=== PATIENT | female | born 1995 | race Caucasian/White ===

== ENCOUNTER 2020-08-06 15:37 | Emergency (ER) | payer OTHER, SELFPAY ==
[2020-08-06 16:14] VITALS: BP 135/69; PULSE 79; RESP 18; TEMP 36.9; O2SAT 98; BMI 42.5
--- NOTE | 2020-08-06 16:19 | XR_ITS ---
EXAMINATION: XR KNEE, LEFT CLINICAL INFORMATION: Fall, pain. COMPARISON: None TECHNIQUE: Four views of the left knee. FINDINGS: Bones and soft tissues are normal. No fracture or joint effusion. Alignment is anatomic. Joint spaces are well maintained. No abnormal soft tissue calcification. XR/XR knee LT 3V IMPRESSION: Unremarkable left knee exam.
--- NOTE | 2020-08-06 16:20 | ED_ITS ---
HPI - Extremity Injury (Lower) General Chief Complaint: Extremity Injury, Lower Stated Complaint: knee pain Time Seen by Provider: 08/06/20 16:12 Source: patient Mode of arrival: wheelchair Limitations: no limitations History of Present Illness HPI Narrative: Patient comes emergency room complaining of left-sided knee pain. Patient states yesterday she was playing with her daughter, she slipped with her right knee, landed hard on her left knee. Patient states she was able to initially walk, but then the pain throughout the day increased. Today patient has not been able to bear significant weight due to knee pain. Patient states she has history of torn ligaments in that same knee, which she require physical therapy. MD complaint: knee injury Related Data Previous Rx's Medication Instructions Recorded acetaminophen [Tylenol 8 Hour] 650 mg PO Q8H PRN #14 tab 08/06/20 Allergies Allergy/AdvReac Type Severity Reaction Status Date / Time ibuprofen [From MOTRIN] Allergy Mild HIVES Verified 08/06/20 16:17 Ibuprofen (800 MG) Allergy Unknown RASH Uncoded 05/09/12 00:00 Review of Systems Review of Systems: Constitutional : No Weight loss, No Fever, No Chills, No Night Sweats, No Fatigue, No Malaise ENT/Mouth : No Hearing loss, No Ear Pain, No Nasal Congestion, No Sinus Pain, No Hoarseness, No sore throat, No Rhinorrhea, No Swallowing Difficulty Eyes: No Eye Pain, No Swelling, No Redness, No Foreign Body, No Discharge, No Vision Changes Cardiovascular : No Chest Pain, No SOB, No Dyspnea on Exertion, No Orthopnea, No Edema, No Palpitations Respiratory : No Cough, No Sputum, No Wheezing, No Smoke Exposure, No Dyspnea Gastrointestinal : No Nausea, No Vomiting, No Diarrhea, No Constipation, No abdominal Pain, No Hematochezia, No Melena Genitourinary : no irregular bleeding, No Dysuria, No Urinary Frequency, No Hematuria, No Urinary Incontinence, No Urgency, No Flank Pain, No Urinary Flow Changes, No Hesitancy Musculoskeletal : Complaining of left-sided knee pain, No Myalgias, No Joint Swelling Skin : No Skin Lesions, No rash Neuro : No Weakness, No Numbness, No Paresthesias, No Loss of Consciousness, No Dizziness, No Headache Psych : No Anxiety/Panic, No Depression, No SI/HI/AH/VH, No Social Issues, Heme/Lymph: No Bruising, No Bleeding,No Lymphadenopathy Endocrine : No Polyuria, No Polydipsia, No Temperature Intolerance [facility] Past Medical History Medical History No known health problems Social History Social History Advance Directives: No Advance Directives Information Provided: No Physical Exam Vital Signs: Vital Signs: Last Vital Signs Temp 98.5 F 08/06/20 16:14 Pulse 79 08/06/20 16:14 Resp 18 08/06/20 16:14 BP 135/69 08/06/20 16:14 Pulse Ox 98 08/06/20 16:14 Body Mass Index 42.5 Appearance: Alert. Oriented X3. No acute distress. Eyes: Pupils equal, round and reactive to light. ENT: Pharynx normal. Neck: Normal inspection. Neck supple. No lymph nodes noted. No crepitus CVS: Normal heart rate and rhythm. Pulses normal. Normal S1 and S2 Respiratory: No respiratory distress. Breath sounds normal. No Wheezing. No rales Abdomen: Soft and nontender. No rigidity. No distention. good BS x4 Skin: Skin warm and dry. Small script to left knee Extremities: No lower extremity edema. Patient unable to bear weight with the left extremity. Knee is symmetrical when compared to the right knee, no knee effusion. Patient complaining of pain to palpation over the patella, no posterior knee pain, complaining of pain with positive drawer test, but no laxity of joint appreciated Neuro: Oriented X 3. No motor deficit. No sensory deficit. Moving all extermities. No slurred speech. Course Course Course Narrative: Patient was able to walk limping from her room to the x-rays suite. I discussed the x-rays with the patient, no fracture. I discussed with the patient that she may need an MRI if the pain does not improve, it is possible that she may have re-injured ligament, may need physical therapy as well. Patient provided with crutches. Patient has been likely secondary to a contusion versus sprain versus ligament/meniscus injury MDM - Extremity Injury (Lower) Imaging Data Knee x-ray: Radiologist's impression: FINDINGS: Bones and soft tissues are normal. No fracture or joint effusion. Alignment is anatomic. Joint spaces are well maintained. No abnormal soft tissue calcification. XR/XR knee LT 3V IMPRESSION: Unremarkable left knee exam. Discharge Plan Discharge Clinical Impression: Knee sprain Patient Disposition: Home, Self-Care Instructions: Knee Sprain (ED) Additional Instructions: Apply ice to your knee for 15 minutes every 2 hours for the 1st 24 hours. Make sure that the ice is not in direct contact with her skin. Please follow-up with your primary care physician, you may need an MRI and or physical therapy. Prescriptions: New acetaminophen [Tylenol 8 Hour] 650 mg tablet extended release 650 mg PO Q8H PRN (Reason: pain) Qty: 14 RF: 0
[2020-08-06] MEDS: Acetaminophen 325 MG TABLET 650 MG PO (16:23)
== END 2020-08-06 17:40 | disposition home or self-care (01) ==
PROVIDERS: Emergency Provider Emergency Medicine
DX: S83.92XA Sprain of unspecified site of left knee, initial encounter (principal); W01.0XXA Fall on same level from slipping, tripping and stumbling without subsequent striking against object, initial encounter; Y93.89 Activity, other specified; Y92.019 Unspecified place in single-family (private) house as the place of occurrence of the external cause; Y99.9 Unspecified external cause status
CPT/HCPCS: 73562; 99282; 99283

== ENCOUNTER 2021-03-20 01:26 | Emergency (ER) | payer MEDICAID, SELFPAY ==
--- NOTE | ~2021-03-20 | CT_ITS ---
EXAMINATION: CT ABDOMEN AND PELVIS WITHOUT CONTRAST CLINICAL INFORMATION: Left flank pain and constipation. COMPARISON: None TECHNIQUE: Multidetector volumetric imaging was performed from the superior aspect of the liver through the pubic symphysis. Sagittal and coronal reformatted images were obtained on the technologist's workstation. This CT examination was performed using dose optimization techniques as appropriate, variously including the following: *Automated exposure control *Adjustment of mA and/or kV according to patient size (this includes techniques or standardized protocols for targeted exams where dose is matched to indication/reason for exam; i.e. extremities or head) *Use of iterative reconstruction technique DLP: 916 mGy-cm FINDINGS: LUNG BASES: The visualized lung bases are unremarkable. LIVER, GALLBLADDER, AND BILIARY TREE: Liver is normal in size, contour and morphology. There is diffuse hepatic steatosis. No focal liver lesions. No intra or extrahepatic biliary dilatation. Gallbladder unremarkable. PANCREAS: Unremarkable. SPLEEN: Unremarkable. ADRENAL GLANDS: Unremarkable. KIDNEYS AND URETERS: The kidneys are normal in size, shape, and attenuation. No hydronephrosis, hydroureter, or calculi seen. No perinephric stranding. BLADDER: Unremarkable. GASTROINTESTINAL TRACT: There is trace fat stranding along the antimesenteric aspect of the descending colon surrounding a lobular fat most compatible with epiploic appendagitis. Gastrointestinal tract otherwise unremarkable. Normal appendix. ABDOMINAL WALL: No significant hernia is appreciated. LYMPH NODES: Normal. VASCULAR: Unremarkable. PELVIC VISCERA: Uterus and adnexa unremarkable. OSSEOUS STRUCTURES: Unremarkable. CT/CT abdomen pelvis wo con IMPRESSION: Findings compatible with epiploic appendagitis involving the distal descending colon. No urinary calculi or hydronephrosis.
[2021-03-20 01:52] VITALS: BP 145/85; PULSE 74; RESP 18; TEMP 36.6; O2SAT 98; BMI 43.9
--- NOTE | 2021-03-20 02:48 | ED_ITS ---
HPI - Abdominal Pain General Chief Complaint: Abdominal Pain Stated Complaint: flank pain Time Seen by Provider: 03/20/21 02:47 Source: patient Mode of arrival: ambulatory Limitations: no limitations History of Present Illness MD elicited complaint: abdominal pain Pertinent past history: none Onset (ago): week(s) (3) Pain Consistency: constant Location: LLQ and L flank Severity: moderate Quality: cramping Radiation: none Migration to: no migration Exacerbating factors: movement Relieving factors: nothing Associated symptoms: nausea and constipation (for 2 weeks + flatus) Treatments prior to arrival: other (miralax, suppository) Related Data Previous Rx's Medication Instructions Recorded acetaminophen 650 mg 650 mg PO Q8H PRN #14 tab 08/06/20 tablet,extended release (Tylenol 8 Hour) docusate sodium 100 mg capsule 100 mg PO BID PRN #30 cap 03/20/21 (Colace) hydrocodone 5 mg-acetaminophen 325 1 tab PO Q6H PRN #12 tab 03/20/21 mg tablet magnesium citrate 150 ml PO DAILY PRN #296 ml 03/20/21 ondansetron 4 mg disintegrating 4 mg PO Q8H PRN #20 tab 03/20/21 tablet sennosides 8.6 mg capsule (senna) 8.6 mg PO BEDTIME PRN #30 cap 03/20/21 Allergies Allergy/AdvReac Type Severity Reaction Status Date / Time ibuprofen [From MOTRIN] Allergy Mild HIVES Verified 08/06/20 16:17 Ibuprofen (800 MG) Allergy Unknown RASH Uncoded 05/09/12 00:00 Review of Systems Review of Systems Constitutional : No Weight loss, No Fever, No Chills ENT/Mouth : No sore throat, No Rhinorrhea Eyes: No Swelling, No Redness Cardiovascular : No Chest Pain, No SOB, NoEdema Respiratory : No Cough, No Sputum, No Wheezing Gastrointestinal : Positive Nausea, no Vomiting, no Diarrhea, positive abdominal Pain, No Hematochezia, No Melena, pos constipation Genitourinary : No Dysuria, No Urinary Frequency, No Hematuria, No Urgency Musculoskeletal : No joint pain, No Myalgias, No Joint Swelling Skin : No Skin Lesions, No rash Neuro : No Weakness, No Numbness, No Dizziness, No Headache Psych : No Anxiety/Panic, No Depression Heme/Lymph: No Bruising, No Lymphadenopathy Endocrine : No Polyuria, No Polydipsia All other systems reviewed and are negative. Physical Exam Vital Signs: Vital Signs: Last Vital Signs Temp 97.8 F 03/20/21 01:52 Pulse 74 03/20/21 01:52 Resp 18 03/20/21 01:52 BP 145/85 H 03/20/21 01:52 Pulse Ox 98 03/20/21 01:52 Body Mass Index 43.9 Appearance: Alert. Oriented X3. No acute distress. Eyes: Pupils equal, round and reactive to light. ENT: Pharynx normal. Neck: Normal inspection. Neck supple. CVS: Normal heart rate and rhythm. Pulses normal. Respiratory: No respiratory distress. Breath sounds normal. Abdomen: Soft and mild ttp in LLQ and L flank pain, no rebound or guarding Skin: Skin warm and dry. Normal skin color. Normal skin turgor. Extremities: No lower extremity edema. No calf ttp Neuro: Oriented X 3. No motor deficit. No sensory deficit. Course Course Course Narrative: self limited epipolic appendagitis - stable for DC MDM - Abdominal Pain MDM Narrative Medical decision making narrative: 25 yo female with L flank pain and LLQ pain - also constipation x 3 weeks no prior stones or diverticulitis at this time will need labs, CT scan for renal colic/diverticulitis, dispo per results and findings. Lab Data Result diagrams: 03/20/21 03:11 03/20/21 03:11 Labs: Lab Results 03/20/21 03/20/21 03/20/21 Range/Units 02:52 02:52 03:11 WBC 9.5 (4.8-10.8) X10*3/uL RBC 4.26 (4.20-5.50) X10*6/uL Hgb 13.3 (12.0-16.0) g/dl Hct 40.0 (37-47) % MCV 93.9 (80-98) fL MCH 31.2 (27.0-33.0) pg MCHC 33.3 (31.0-35.0) g/dl RDW 13.0 (11.0-16.0) % Plt Count 293 (160-400) X10*3/uL MPV 10.4 (9.4-12.3) fL Immature Gran % (Auto) 0.2 (0.0-0.4) % Neut % (Auto) 57.0 (45-73) % Lymph % (Auto) 34.2 (20-40) % [place] % (Auto) 7.5 (2-11) % Eos % (Auto) 0.9 (0-4) % Baso % (Auto) 0.2 (0-2) % Lymph # (Auto) 3.2 (1.2-4.9) X10*3/uL [place] # (Auto) 0.7 (0.1-1.2) X10*3/uL Eos # (Auto) 0.1 (0.0-0.4) X10*3/uL Baso # (Auto) 0.0 (0.0-0.2) X10*3/uL Abs Immat Gran (auto) 0.02 (0.00-0.03) X10*3/uL Absolute Neuts (auto) 5.4 (2.0-8.3) X10*3/uL Absolute Nucleated RBC 0.000 (0.0-0.012) X10*3/uL Nucleated RBC % (auto) 0.0 (0.0-0.2) /100WBC Sodium Potassium Chloride Carbon Dioxide Anion Gap BUN Creatinine Estim Creat Clear Calc Estimated GFR Random Glucose Calcium Urine Color YELLOW Urine Appearance CLEAR Urine pH 6.0 (5.0-8.0) Ur Specific [place] >= 1.030 H (1.005-1.025) Urine Protein NEG (NEG-TRACE) MG/DL Urine Glucose (UA) NEG (NEG) MG/DL Urine Ketones NEG (NEG) MG/DL Urine Blood NEG (NEG) Urine Nitrite NEG (NEG) Ur Leukocyte Esterase NEG (NEG) Urine Test NEGATIVE (NEGATIVE) 03/20/21 Range/Units 03:11 WBC (4.8-10.8) X10*3/uL RBC (4.20-5.50) X10*6/uL Hgb (12.0-16.0) g/dl Hct (37-47) % MCV (80-98) fL MCH (27.0-33.0) pg MCHC (31.0-35.0) g/dl RDW (11.0-16.0) % Plt Count (160-400) X10*3/uL MPV (9.4-12.3) fL Immature Gran % (Auto) (0.0-0.4) % Neut % (Auto) (45-73) % Lymph % (Auto) (20-40) % [place] % (Auto) (2-11) % Eos % (Auto) (0-4) % Baso % (Auto) (0-2) % Lymph # (Auto) (1.2-4.9) X10*3/uL [place] # (Auto) (0.1-1.2) X10*3/uL Eos # (Auto) (0.0-0.4) X10*3/uL Baso # (Auto) (0.0-0.2) X10*3/uL Abs Immat Gran (auto) (0.00-0.03) X10*3/uL Absolute Neuts (auto) (2.0-8.3) X10*3/uL Absolute Nucleated RBC (0.0-0.012) X10*3/uL Nucleated RBC % (auto) (0.0-0.2) /100WBC Sodium Cancelled Potassium Cancelled Chloride Cancelled Carbon Dioxide Cancelled Anion Gap Cancelled BUN Cancelled Creatinine Cancelled Estim Creat Clear Calc Cancelled Estimated GFR Cancelled Random Glucose Cancelled Calcium Cancelled Urine Color Urine Appearance Urine pH (5.0-8.0) Ur Specific [place] (1.005-1.025) Urine Protein (NEG-TRACE) MG/DL Urine Glucose (UA) (NEG) MG/DL Urine Ketones (NEG) MG/DL Urine Blood (NEG) Urine Nitrite (NEG) Ur Leukocyte Esterase (NEG) Urine Test (NEGATIVE) Discharge Plan Discharge Clinical Impression: Epiploic appendagitis Patient Disposition: Home, Self-Care Instructions: Abdominal Pain (ED) Additional Instructions: return to ED for any worsening symptoms or concerns Prescriptions: New hydrocodone-acetaminophen 5-325 mg tablet 1 tab PO Q6H PRN (Reason: pain) Qty: 12 RF: 0 docusate sodium [Colace] 100 mg capsule 100 mg PO BID PRN (Reason: constipation) Qty: 30 RF: 0 ondansetron 4 mg tablet,disintegrating 4 mg PO Q8H PRN (Reason: nausea and vomiting) Qty: 20 RF: 0 senna 8.6 mg capsule 8.6 mg PO BEDTIME PRN (Reason: constipation) Qty: 30 RF: 0 magnesium citrate Solution 150 ml PO DAILY PRN (Reason: constipation) Qty: 296 RF: 0 No Action acetaminophen [Tylenol 8 Hour] 650 mg tablet extended release 650 mg PO Q8H PRN (Reason: pain) Qty: 14 RF: 0 Referrals: Physician,None [Primary Care Provider] - 2 days (if not better) Stand Alone Forms: Work/School Release [facility] Past Medical History Medical History No known health problems Social History Social History Advance Directives: No Patient : No
--- NOTE | 2021-03-20 02:52 | PC.NURSE ---
UA obtained. MD at bedside for primary eval.
--- NOTE | 2021-03-20 03:02 | PC.NURSE ---
Pt ambulating to CT. Plan for IV, labs and medications upon return.
[2021-03-20 03:04] LABS: Glucose Urine UA NEG (NEG); Leukocyte Esterase Urine NEG (NEG); Nitrite Urine NEG (NEG); Specific Gravity - Urine >= 1.030 (1.005-1.025); Urine Blood NEG (NEG); Urine Ketones NEG (NEG); Urine Protein NEG (NEG-TRACE)
[2021-03-20 03:06] LABS: Appearance Urine CLEAR; Color Urine YELLOW
[2021-03-20 03:07] LABS: UPreg QC Valid YES; Urine Pregnancy NEGATIVE (NEGATIVE)
[2021-03-20] MEDS: 0.9 % Sodium Chloride 1,000 ML 999 ML IVCONT (03:20)
[2021-03-20 03:24] LABS: MANUAL DIFF FLAG NO
--- NOTE | 2021-03-20 03:24 | PC.NURSE ---
IV established, labs obtained. Pt medicated per OCT.
[2021-03-20 03:26] LABS: Basophils Percent Auto 0.2 % (0-2); Eosinophils Absolute Auto 0.1 X10*3/uL (0.0-0.4); Eosinophils Percent Auto 0.9 % (0-4); Hemoglobin 13.3 g/dl (12.0-16.0); Imm Gran Abs Auto 0.02 X10*3/uL (0.00-0.03); Imm Gran Pct Auto 0.2 % (0.0-0.4); Lymphocytes Absolute Auto 3.2 X10*3/uL (1.2-4.9); Lymphocytes Percent Auto 34.2 % (20-40); Mean Corpuscular HGB Conc 33.3 g/dl (31.0-35.0); Mean Corpuscular Hemoglobin 31.2 pg (27.0-33.0); Mean Corpuscular Volume 93.9 fL (80-98); Mean Platelet Volume 10.4 fL (9.4-12.3); Monocytes Absolute Auto 0.7 X10*3/uL (0.1-1.2); Monocytes Percent Auto 7.5 % (2-11); Neutrophils Absolute Auto 5.4 X10*3/uL (2.0-8.3); Platelet Count 293 X10*3/uL (160-400); Red Blood Count 4.26 X10*6/uL (4.20-5.50); White Blood Count 9.5 X10*3/uL (4.8-10.8)
[2021-03-20 03:55] LABS: Alanine Aminotransferase 31 U/L (0-31); Albumin Level 4.1 g/dL (3.5-5.0); Alkaline Phosphatase 83 U/L (39-117); Anion Gap 16 (12-20); Aspartate Amino Transferase 23 U/L (5-31); Bilirubin Direct 0.2 mg/dL (0.0-0.5); Bilirubin Total 0.3 mg/dL (0.0-1.0); Blood Urea Nitrogen 16 mg/dL (9-16); Carbon Dioxide 21 mmol/L (22-29); Chloride 106 mmol/L (96-108); Creatinine Clr Calc Pharmacy 130.3; Estimated Glomerular Filt Rate > 60; Glucose Random 109 mg/dL (60-115); Lipase 12 U/L (8-78); Potassium 4.4 mmol/L (3.3-5.1); Sodium 139 mmol/L (135-145); Total Protein 7.7 g/dL (6.5-8.0)
[2021-03-20 05:55] VITALS: RESP 16
== END 2021-03-20 05:56 | disposition home or self-care (01) ==
PROVIDERS: Emergency Provider Emergency Medicine
DX: K63.89 Other specified diseases of intestine (principal); K59.00 Constipation, unspecified; R10.32 Left lower quadrant pain; Z79.899 Other long term (current) drug therapy
CPT/HCPCS: 36415; 74176; 80048; 80076; 81003; 81025; 83690; 83735; 85025; 96361; 96374; 99284; J2405

== ENCOUNTER 2021-03-22 18:53 | Emergency (ER) | payer MEDICAID, SELFPAY ==
[2021-03-22 19:34] VITALS: BP 132/75; PULSE 70; RESP 18; TEMP 36.3; O2SAT 99; BMI 44.9
[2021-03-22 20:47] LABS: MANUAL DIFF FLAG NO
[2021-03-22 20:49] LABS: Basophils Percent Auto 0.4 % (0-2); Eosinophils Absolute Auto 0.1 X10*3/uL (0.0-0.4); Eosinophils Percent Auto 0.6 % (0-4); Hematocrit 43.5 % (37-47); Hemoglobin 14.3 g/dl (12.0-16.0); Imm Gran Abs Auto 0.02 X10*3/uL (0.00-0.03); Imm Gran Pct Auto 0.3 % (0.0-0.4); Lymphocytes Absolute Auto 2.6 X10*3/uL (1.2-4.9); Lymphocytes Percent Auto 31.9 % (20-40); Mean Corpuscular HGB Conc 32.9 g/dl (31.0-35.0); Mean Corpuscular Volume 94.4 fL (80-98); Mean Platelet Volume 10.3 fL (9.4-12.3); Monocytes Absolute Auto 0.5 X10*3/uL (0.1-1.2); Monocytes Percent Auto 5.6 % (2-11); Neutrophils Absolute Auto 4.9 X10*3/uL (2.0-8.3); Neutrophils Percent Auto 61.2 % (45-73); Platelet Count 291 X10*3/uL (160-400); Red Blood Count 4.61 X10*6/uL (4.20-5.50); Red Cell Distribution Width 12.9 % (11.0-16.0)
[2021-03-22 21:11] LABS: Anion Gap 13 (12-20); Blood Urea Nitrogen 11 mg/dL (9-16); Calcium 9.4 mg/dL (8.4-10.2); Carbon Dioxide 27 mmol/L (22-29); Chloride 105 mmol/L (96-108); Creatinine Clr Calc Pharmacy 124.1; Estimated Glomerular Filt Rate > 60; Glucose Random 92 mg/dL (60-115); Potassium 3.7 mmol/L (3.3-5.1); Sodium 141 mmol/L (135-145)
--- NOTE | 2021-03-22 21:54 | ED.RECABL ---
HPI - Recheck/Abnormal Lab/Rx General Chief Complaint: Recheck/Abnormal Lab/Rx Stated Complaint: recheck Time Seen by Provider: 03/22/21 21:53 Source: patient Mode of arrival: ambulatory Limitations: no limitations History of Present Illness HPI narrative: patient diagnosed with epiploic appendagitis and constipation, states she is still having left sided pain. She also still feels constipated. Symptoms since prior visit: no new symptoms Associated symptoms: none Related Data Previous Rx's Medication Instructions Recorded acetaminophen 650 mg 650 mg PO Q8H PRN #14 tab 08/06/20 tablet,extended release (Tylenol 8 Hour) docusate sodium 100 mg capsule 100 mg PO BID PRN #30 cap 03/20/21 (Colace) hydrocodone 5 mg-acetaminophen 325 1 tab PO Q6H PRN #12 tab 03/20/21 mg tablet magnesium citrate 150 ml PO DAILY PRN #296 ml 03/20/21 ondansetron 4 mg disintegrating 4 mg PO Q8H PRN #20 tab 03/20/21 tablet sennosides 8.6 mg capsule (senna) 8.6 mg PO BEDTIME PRN #30 cap 03/20/21 lactulose 20 gram/30 mL oral 20 g PO TID #1200 ml 03/22/21 solution Allergies Allergy/AdvReac Type Severity Reaction Status Date / Time ibuprofen [From MOTRIN] Allergy Mild HIVES Verified 03/22/21 19:40 Ibuprofen (800 MG) Allergy Unknown RASH Uncoded 03/22/21 19:40 Review of Systems Constitutional: Constitutional: Reports no additional constitutional complaints Eyes: Eyes: Reports no additional eye complaints ENT: Denies dizziness Cardiovascular: Cardiovascular: Reports no additional cardiovascular complaints Respiratory: Respiratory: Reports as per HPI Gastrointestinal: Gastrointestinal: Reports no additional gastrointestinal complaints Genitourinary: Genitourinary: Reports no additional female genitourinary complaints Musculoskeletal: Musculoskeletal: Reports no additional musculoskeletal complaints Integumentary/Breasts: Skin/Breast: Denies rash Neurologic: Reports system reviewed and no additional complaints, except as documented, Denies dizziness and Denies Sensory deficit (Neuro) Psychiatric: Psychiatric: Denies anxiety PMFSH Past Medical History Medical History Asthma Hypothyroidism Social History Social History Patient : No Physical Exam Vital Signs: Vital Signs: Last Vital Signs Temp 97.4 F 03/22/21 19:34 Pulse 70 03/22/21 19:34 Resp 18 03/22/21 19:34 BP 132/75 03/22/21 19:34 Pulse Ox 99 03/22/21 19:34 Body Mass Index 44.9 Const: General: healthy appearing Nutritional Appearance: average body habitus Orientation/consciousness: oriented to person and patient oriented x3 Limitations: no limitations HENMT: Head: Yes normal to inspection Ears: external ears normal General nose exam: Normal external nose present Mouth: Normal oral and palatal mucosa present and oropharynx normal Throat: Yes posterior oropharynx normal Eyes: General: appearance normal, both eyes and all related structures Neck: Other: supple Neck: Yes normal visual inspection Chest: Chest palpation & inspection: normal inspection of the chest Resp: Auscultation: clear to auscultation bilaterally Cardio: Jugular venous distension: no JVD Rate: regular rate Rhythm: regular rhythm Heart sounds: S1 normal heart sound present and S2 normal heart sound present GI: Other: patient with mild left sided pain, no guarding or rebound. Patient is on hydrocodone and is still constipated. Palpation (GI): Soft to palpation Auscultation: normal bowel sounds : General: Yes no CVA tenderness Back/Spine/Pelvis: Back: no CVA tenderness Skin: General skin exam: no rashes or lesions noted Neuro: General: oriented to person and patient oriented x3 Cranial nerves: Yes CN's II-XII intact bilaterally Motor exam (neuro): 5/5 motor strength present throughout Sensory Exam: No Sensory deficit (Neuro) Extrem: General: Yes normal to inspection Psych: Appearance: grossly normal Course Reevaluation(s) Reevaluation #1: patient is not toxic, will place on lactulose for her constipation and encourage her to stop the hydrocodone. Time: 22:03 MDM - Recheck/Abnormal Lab/Rx Lab Data Result diagrams: 03/22/21 20:42 03/22/21 20:42 Labs: Lab Results 03/22/21 03/22/21 Range/Units 20:42 20:42 WBC 8.0 (4.8-10.8) X10*3/uL RBC 4.61 (4.20-5.50) X10*6/uL Hgb 14.3 (12.0-16.0) g/dl Hct 43.5 (37-47) % MCV 94.4 (80-98) fL MCH 31.0 (27.0-33.0) pg MCHC 32.9 (31.0-35.0) g/dl RDW 12.9 (11.0-16.0) % Plt Count 291 (160-400) X10*3/uL MPV 10.3 (9.4-12.3) fL Immature Gran % (Auto) 0.3 (0.0-0.4) % Neut % (Auto) 61.2 (45-73) % Lymph % (Auto) 31.9 (20-40) % [place] % (Auto) 5.6 (2-11) % Eos % (Auto) 0.6 (0-4) % Baso % (Auto) 0.4 (0-2) % Lymph # (Auto) 2.6 (1.2-4.9) X10*3/uL [place] # (Auto) 0.5 (0.1-1.2) X10*3/uL Eos # (Auto) 0.1 (0.0-0.4) X10*3/uL Baso # (Auto) 0.0 (0.0-0.2) X10*3/uL Abs Immat Gran (auto) 0.02 (0.00-0.03) X10*3/uL Absolute Neuts (auto) 4.9 (2.0-8.3) X10*3/uL Absolute Nucleated RBC 0.000 (0.0-0.012) X10*3/uL Nucleated RBC % (auto) 0.0 (0.0-0.2) /100WBC Sodium 141 (135-145) mmol/L Potassium 3.7 (3.3-5.1) mmol/L Chloride 105 (96-108) mmol/L Carbon Dioxide 27 (22-29) mmol/L Anion Gap 13 (12-20) BUN 11 (9-16) mg/dL Creatinine 0.81 (0.5-1.4) mg/dL Estim Creat Clear Calc 124.1 Estimated GFR > 60 Random Glucose 92 (60-115) mg/dL Calcium 9.4 (8.4-10.2) mg/dL Discharge Plan Discharge Clinical Impression: Appendicitis epiploica Patient Disposition: Home, Self-Care Prescriptions: New lactulose 20 gram/30 mL solution 20 g PO TID Qty: 1200 RF: 0 No Action acetaminophen [Tylenol 8 Hour] 650 mg tablet extended release 650 mg PO Q8H PRN (Reason: pain) Qty: 14 RF: 0 hydrocodone-acetaminophen 5-325 mg tablet 1 tab PO Q6H PRN (Reason: pain) Qty: 12 RF: 0 docusate sodium [Colace] 100 mg capsule 100 mg PO BID PRN (Reason: constipation) Qty: 30 RF: 0 ondansetron 4 mg tablet,disintegrating 4 mg PO Q8H PRN (Reason: nausea and vomiting) Qty: 20 RF: 0 senna 8.6 mg capsule 8.6 mg PO BEDTIME PRN (Reason: constipation) Qty: 30 RF: 0 magnesium citrate Solution 150 ml PO DAILY PRN (Reason: constipation) Qty: 296 RF: 0
[2021-03-22 22:35] VITALS: BP 153/86; PULSE 85; RESP 17; O2SAT 97
[2021-03-22] MEDS: Lactulose 20 GM/30 ML SOLUTION PO (22:36)
== END 2021-03-22 22:39 | disposition home or self-care (01) ==
LOC: HO.ED 22:08
PROVIDERS: Emergency Provider Emergency Medicine
DX: K63.89 Other specified diseases of intestine (principal); R79.89 Other specified abnormal findings of blood chemistry; Z79.899 Other long term (current) drug therapy
CPT/HCPCS: 36415; 80048; 85025; 99283; 99284

== ENCOUNTER → 2021-06-22 11:59 | Outpatient (BNVA) | payer MEDICAID, SELFPAY | PROVIDERS: PCP Internal Medicine; Referring Provider Internal Medicine; Visit Provider Physician Assistant Surgical ==

== ENCOUNTER → 2021-07-17 08:14 | Outpatient (BNVA) | payer MEDICAID, SELFPAY | PROVIDERS: PCP Internal Medicine; Visit Provider Surgery ==

== ENCOUNTER → 2021-08-14 07:57 | Outpatient (BNVA) | payer MEDICAID, SELFPAY | PROVIDERS: PCP Internal Medicine; Visit Provider Surgery ==

== ENCOUNTER → 2021-08-17 08:18 | Outpatient (BNVA) | payer MEDICAID, SELFPAY | PROVIDERS: PCP Internal Medicine; Visit Provider Dietitian, Registered ==

== ENCOUNTER 2022-01-04 17:14 | Emergency (ER) | payer MEDICAID, SELFPAY ==
--- NOTE | ~2022-01-04 | XR_ITS ---
EXAMINATION: XR ABDOMEN KUB CLINICAL INDICATION: Constipation COMPARISON: None TECHNIQUE: AP view of the abdomen. FINDINGS: There is scattered stool and gas seen in the colon without any distention. No radiopaque calculi. No organomegaly. No gross bony abnormality. The soft tissues are normal. XR/XR KUB IMPRESSION: Mild constipation.
[2022-01-04 18:07] VITALS: BP 105/72; PULSE 70; RESP 18; TEMP 36.9; O2SAT 98; BMI 41.5
[2022-01-04 20:15] LABS: MANUAL DIFF FLAG NO
[2022-01-04 20:19] LABS: Basophils Percent Auto 0.2 % (0-2); Eosinophils Absolute Auto 0.1 X10*3/uL (0.0-0.4); Eosinophils Percent Auto 0.6 % (0-4); Hematocrit 42.7 % (37.0-47.0); Hemoglobin 13.8 g/dl (12.0-16.0); Imm Gran Abs Auto 0.02 X10*3/uL (0.00-0.03); Imm Gran Pct Auto 0.2 % (0.0-0.4); Lymphocytes Absolute Auto 2.1 X10*3/uL (1.2-4.9); Lymphocytes Percent Auto 24.5 % (20-40); Mean Corpuscular HGB Conc 32.3 g/dl (31.0-35.0); Mean Corpuscular Hemoglobin 30.1 pg (27.0-33.0); Mean Corpuscular Volume 93.2 fL (80.0-98.0); Mean Platelet Volume 10.8 fL (9.4-12.3); Monocytes Absolute Auto 0.4 X10*3/uL (0.1-1.2); Monocytes Percent Auto 4.9 % (2-11); Neutrophils Absolute Auto 5.9 x10*3/uL (2.0-8.3); Neutrophils Percent Auto 69.6 % (45-73); Platelet Count 326 X10*3/uL (160-400); Red Blood Count 4.58 X10*6/uL (4.20-5.50); Red Cell Distribution Width 13.4 % (11.0-16.0); White Blood Count 8.5 X10*3/uL (4.8-10.8)
[2022-01-04 20:20] LABS: UPreg QC Valid YES; Urine Pregnancy NEGATIVE (NEGATIVE)
[2022-01-04 20:34] LABS: Alanine Aminotransferase 20 U/L (0-31); Albumin Level 4.2 g/dL (3.5-5.0); Alkaline Phosphatase 82 U/L (39-117); Anion Gap 13 (12-20); Aspartate Amino Transferase 17 U/L (5-31); Bilirubin Total 0.6 mg/dL (0.0-1.0); Blood Urea Nitrogen 9 mg/dL (9-16); Calcium 9.2 mg/dL (8.4-10.2); Carbon Dioxide 24 mmol/L (22-29); Chloride 106 mmol/L (96-108); Creatinine Clr Calc Pharmacy 132.1; Estimated Glomerular Filt Rate > 60; Glucose Random 103 mg/dL (60-115); Lipase 14 U/L (8-78); Potassium 3.7 mmol/L (3.3-5.1); Sodium 139 mmol/L (135-145); Total Protein 7.8 g/dL (6.5-8.0)
== END 2022-01-04 21:26 | disposition left against medical advice (07) ==
PROVIDERS: Emergency Provider Emergency Medicine; PCP Internal Medicine
DX: R10.10 Upper abdominal pain, unspecified (principal); K59.00 Constipation, unspecified
CPT/HCPCS: 36415; 74018; 80053; 81025; 83690; 85025; 99283

== ENCOUNTER 2023-01-10 08:47 | Outpatient (REF) | payer MEDICAID, SELFPAY ==
[2023-01-12 14:19] LABS: H Pylori Breath Test Positive (Negative)
== END 2023-01-10 08:48 | disposition home or self-care (01) ==
LOC: HO.LNP 08:47
PROVIDERS: PCP Internal Medicine; Visit Provider Physician Assistant Surgical
DX: Z01.818 Encounter for other preprocedural examination (principal); E66.01 Morbid (severe) obesity due to excess calories; E03.9 Hypothyroidism, unspecified; J45.909 Unspecified asthma, uncomplicated; F32.A Depression, unspecified; F41.9 Anxiety disorder, unspecified; M54.9 Dorsalgia, unspecified; M25.569 Pain in unspecified knee; Z71.3 Dietary counseling and surveillance
CPT/HCPCS: 83013; 99211; 99212

== ENCOUNTER → 2023-01-23 11:14 | Outpatient (BNVA) | payer OTHER, MEDICAID, SELFPAY | PROVIDERS: PCP Internal Medicine; Visit Provider Counselor Mental Health ==

== ENCOUNTER 2023-01-24 15:23 | Outpatient (REF) | payer MEDICAID, SELFPAY ==
--- NOTE | ~2023-01-24 | XR_ITS ---
EXAMINATION: XR CHEST CLINICAL INFORMATION: Preop. COMPARISON: None available. TECHNIQUE: 2 views of the chest were obtained. FINDINGS: No significant abnormality is noted involving the heart, lungs, mediastinum, bony thorax or soft tissues. XR/XR chest 2V IMPRESSION: Unremarkable examination.
--- NOTE | 2023-01-24 15:30 | ECG_ITS ---
Test Reason : PREOP Blood Pressure : / mmHG Vent. Rate : 072 BPM Atrial Rate : 072 BPM P-R Int : 136 ms QRS Dur : 082 ms QT Int : 398 ms P-R-T Axes : 040 045 028 degrees QTc Int : 435 ms Normal sinus rhythm Normal ECG No previous ECGs available Referred By: Lazara Jordan Electronically Signed By:TANI CARSON MD
[2023-01-24 15:52] LABS: MANUAL DIFF FLAG NO
[2023-01-24 16:01] LABS: Basophils Percent Auto 0.3 % (0-2); Eosinophils Percent Auto 0.7 % (0-4); Hematocrit 42.8 % (37.0-47.0); Imm Gran Abs Auto 0.01 X10*3/uL (0.00-0.03); Imm Gran Pct Auto 0.2 % (0.0-0.4); Lymphocytes Absolute Auto 1.7 X10*3/uL (1.2-4.9); Lymphocytes Percent Auto 28.2 % (20-40); Mean Corpuscular HGB Conc 32.7 g/dl (31.0-35.0); Mean Corpuscular Hemoglobin 29.9 pg (27.0-33.0); Mean Corpuscular Volume 91.3 fL (80.0-98.0); Mean Platelet Volume 10.5 fL (9.4-12.3); Monocytes Absolute Auto 0.4 X10*3/uL (0.1-1.2); Monocytes Percent Auto 5.9 % (2-11); Neutrophils Percent Auto 64.7 % (45-73); Platelet Count 341 X10*3/uL (160-400); Red Blood Count 4.69 X10*6/uL (4.20-5.50); Red Cell Distribution Width 13.2 % (11.0-16.0); White Blood Count 6.1 X10*3/uL (4.8-10.8)
[2023-01-24 16:15] LABS: Alanine Aminotransferase 17 U/L (0-31); Albumin Level 4.2 g/dL (3.5-5.0); Alkaline Phosphatase 67 U/L (39-117); Anion Gap 14 (12-20); Aspartate Amino Transferase 16 U/L (5-31); Bilirubin Total 0.7 mg/dL (0.0-1.0); Blood Urea Nitrogen 10 mg/dL (9-16); C Reactive Protein 0.19 mg/dL (< or = 0.50); Calcium 9.4 mg/dL (8.4-10.2); Carbon Dioxide 23 mmol/L (22-29); Chloride 107 mmol/L (96-108); Cholesterol 157 mg/dL; Estimated Glomerular Filt Rate > 60; Glucose Random 97 mg/dL (60-115); HDL Cholesterol 37 mg/dL; Iron 82 mcg/dL (30-160); LDL Cholesterol Calculated 110 mg/dl; Percent Iron Saturation 22 % (15-50); Potassium 3.7 mmol/L (3.3-5.1); Sodium 140 mmol/L (135-145); Total Iron Binding Capacity 375 mcg/dL (228-428); Total Protein 7.8 g/dL (6.5-8.0); Triglycerides 52 mg/dL; Unsaturated Iron Binding 293 ug/dL
[2023-01-24 16:22] LABS: Estimated Average Glucose 105 mg/dL; Hemoglobin A1c % 5.3 %
[2023-01-24 16:42] LABS: Ferritin 22 ng/mL (10-122); TSH reflex Free T4 3.36 uIU/mL (0.32-4.0); Vitamin D 25-OH Total 18.6 ng/mL (>30)
[2023-01-24 16:54] LABS: Folate 12.2 ng/mL (> or = 4.0); Vitamin B12 555 pg/mL (200-900)
[2023-01-24 16:59] LABS: Insulin 11 uU/mL (2-29)
[2023-01-30 00:59] LABS: Zinc 77 mcg/dL (60-130)
[2023-01-30 14:18] LABS: Calcium (PTHI) 9.1 mg/dL (8.6-10.2); PTHI 51 pg/mL (16-77)
[2023-01-30 16:13] LABS: Vitamin A 23 mcg/dL (38-98)
[2023-02-01 13:54] LABS: Vitamin B1 <6 nmol/L (8-30)
== END 2023-01-24 15:24 | disposition home or self-care (01) ==
LOC: HO.XRAY 15:23
PROVIDERS: PCP Internal Medicine; Visit Provider Physician Assistant Surgical
DX: Z01.818 Encounter for other preprocedural examination (principal)
CPT/HCPCS: 36415; 71046; 80053; 80061; 82306; 82607; 82728; 82746; 83036; 83525; 83540; 83970; 84425; 84443; 84590; 84630; 85025; 86140; 93005

== ENCOUNTER → 2023-02-05 09:59 | Outpatient (BNVA) | payer MEDICAID, SELFPAY | PROVIDERS: PCP Internal Medicine; Visit Provider Dietitian, Registered | DX: E66.9 Obesity, unspecified (principal); Z68.39 Body mass index [BMI] 39.0-39.9, adult; Z71.3 Dietary counseling and surveillance | CPT/HCPCS: 97802 ==

== ENCOUNTER 2023-02-20 14:09 | Outpatient (AMB) | payer MEDICAID, SELFPAY ==
--- NOTE | 2023-02-20 14:12 | A.OFFVIS_ITS ---
Intake VS Expanded 02/20/23 14:16 Height 5 ft 2 in Weight 210 lb 12.8 oz BMI 38.6 BP 133/66 Blood Pressure Location Rt brachial Blood Pressure Position Sitting Pulse 100 Pulse Source Pulse Oximeter Temp 97.7 F Temperature Source Temporal Artery Scan Pulse Oximetry 98 Oxygen Delivery Method Room Air Body Fat 82.8 Body Fat Percentage 39.3 Free Fat Mass 127.8 Muscle Mass 121.4 Visceral Mass 9.0 Water Mass 92.0 BMR 1,796 Intake Visit Reasons: (OV) F/U SWL *NEED TO FILL OUT BH SCALES* Allergies ibuprofen [From MOTRIN] Allergy (Mild, Verified 02/20/23 14:15) HIVES Ibuprofen (800 MG) Allergy (Unknown, Uncoded 07/17/21 09:08) RASH Medication List - Last Reconciled 02/20/23 by DOMINIC Arreaga amoxicillin 1,000 mg (2 x 500 mg) PO Q12H cholecalciferol (vitamin D3) 125 mcg PO DAILY clarithromycin 500 mg PO Q12H inulin (Fiber Gummies) 2 grams PO DAILY omeprazole 20 mg PO BID thiamine HCl (vitamin B1) 100 mg PO DAILY vitamin A palmitate 10,000 units PO DAILY HPI HPI Comments History of Present Illness Details The patient is a pleasant 27 year old female who returns to the clinic for pre-operative surgical weight loss management.? They were last seen in the office on 01/10/2023, recorded weight at that time was 227.4 pounds, with a BMI of 41.6.? Today's weight is 210.8 pounds and BMI is 38.6.? There has been a weight loss of 32.2 pounds since initiating the surgical weight loss program on 07/17/2021 with a total body weight loss of 13.25%. Pre op work up completed as follows: SWL classes:? 03/19 BH appts: 01/23; not cleared RD appts: 02/05; needs followup 03/06 Labs: 01/24- low vit A, B1, D H. pylori: + , currently undergoing treatment CXR: 01/24, unremarkable exam EK/15, NSR ABD U/S: 03/13 UGI: 03/13 Current meal plan includes: 3 Premier Protein shakes -TWO scoops in 8oz vanilla unsweetened almond milk at 9am-11am -ONE scoop in 8oz vanilla unsweetened almond milk at 12:30pm-2:30 pm and 4pm-6pm Dinner at 7:30pm (6 forks of protein and 6 forks of salad/vegetables). Pt reports she changed to Slimfast shakes, 3 per day at above times plus her meal. Current exercise plan includes: goes to gym 2x/week, does Crossfit 2 hours each time walking other days a week [facility] Medical History (Updated 07/17/21 @ 09:16 by Javy Tapia MD) Anxiety Asthma Back pain Depression Hypothyroidism Knee pain Morbid obesity Surgical History Hx of bilateral salpingectomy Family History Mother Hypertension High cholesterol Father Kidney failure Diabetes Hypertension High cholesterol Son Asthma Daughter Asthma Social History Alcohol intake: current Alcohol intake frequency: holidays/special occasions only Patient Tobacco Use Status: Never used Tobacco Assessment & Plan Assessment & Plan (1) Morbid obesity: Code(s): E66.01 - Morbid (severe) obesity due to excess calories (2) Hypothyroidism: Code(s): E03.9 - Hypothyroidism, unspecified (3) Asthma: Code(s): J45.909 - Unspecified asthma, uncomplicated (4) Depression: Code(s): F32.A - Depression, unspecified (5) Anxiety: Code(s): F41.9 - Anxiety disorder, unspecified (6) Back pain: Code(s): M54.9 - Dorsalgia, unspecified (7) Knee pain: Code(s): M25.569 - Pain in unspecified knee Plan Pt has done well with weight loss losing over 13% of TBW since she first started our program in Jul 2021. Needs clearance from RD (next week), (will schedule today). Currently undergoing H pylori treatment and has US/UGI scheduled 03/13. Assuming she completes all testing can schedule next visit with Dr. Judge for discussion of surgery, 4 weeks. Patient is obese and is not considered stable at this time. I spent a total of 30 minutes reviewing/updating records, examining the patient and counseling the patient on weight management as detailed above. Medications: New inulin (Fiber Gummies) 2 grams PO DAILY 90 tabs 3RF Coding Level of Care Code Est Pt Level 4 (98397) Diagnoses Morbid obesity E66.01 Hypothyroidism E03.9 Asthma J45.909 Depression F32.A Anxiety F41.9 Back pain M54.9 Knee pain M25.569
[2023-02-20 14:16] VITALS: BP 133/66; PULSE 100; TEMP 36.5; O2SAT 98; BMI 38.6
== END 2023-02-20 14:48 | disposition home or self-care (01) ==
PROVIDERS: PCP Internal Medicine; Visit Provider Physician Assistant Surgical
DX: E66.01 Morbid (severe) obesity due to excess calories (principal); E03.9 Hypothyroidism, unspecified; J45.909 Unspecified asthma, uncomplicated; F32.A Depression, unspecified; F41.9 Anxiety disorder, unspecified; M54.9 Dorsalgia, unspecified; M25.569 Pain in unspecified knee
CPT/HCPCS: 99214

== ENCOUNTER → 2023-02-20 14:09 | Outpatient (BNVA) | payer MEDICAID, SELFPAY | PROVIDERS: PCP Internal Medicine; Visit Provider Physician Assistant Surgical | DX: E66.01 Morbid (severe) obesity due to excess calories (principal); E03.9 Hypothyroidism, unspecified; J45.909 Unspecified asthma, uncomplicated; F41.9 Anxiety disorder, unspecified; F32.A Depression, unspecified; M54.9 Dorsalgia, unspecified; M25.569 Pain in unspecified knee; Z68.38 Body mass index [BMI] 38.0-38.9, adult | CPT/HCPCS: 99214 ==

== ENCOUNTER 2023-03-13 08:55 | Outpatient (REF) | payer MEDICAID, SELFPAY ==
--- NOTE | ~2023-03-13 | FL_ITS ---
EXAMINATION: XR FL UPPER GI WITH AIR CLINICAL INFORMATION: Preprocedural. COMPARISON: None available. TECHNIQUE: Air-contrast upper GI examination. FINDINGS: There is normal apposition of the vocal cords while saying E. There is normal elevation of the soft palate while saying candy. Patient swallowed thin and thick barium and half-inch diameter barium tablet without difficulty. No nasopharyngeal reflux or tracheal aspiration. The esophagus demonstrated normal motility without persistent stricture or mucosal abnormality. No hiatal hernia was seen. No gastroesophageal reflux was noted. The stomach demonstrates normal distensibility without abnormal mass or ulceration. There was no delay in gastric emptying. The duodenal bulb and sweep appeared unremarkable. FLUOROSCOPY TIME: 1.6 minutes. DOSE AREA PRODUCT: 14.747 Gy-cm2 (herr-centimeter squared). FL/FL upper GI w air IMPRESSION: Normal air-contrast upper GI examination.
--- NOTE | ~2023-03-13 | US_ITS ---
EXAMINATION: US COMPLETE ABDOMEN WITH LIVER ELASTOGRAPHY CLINICAL INFORMATION: Morbid obesity. COMPARISON: CT abdomen of 03/20/2021. TECHNIQUE: Real-time imaging of the abdominal viscera. Noninvasive ultrasound liver fibrosis assessment is performed using [place] Elast[employer] point quantification shear wave elastography (2D-SWE) with a C5-2 MHz transducer. Multiple elastography samples are obtained. FINDINGS: PANCREAS: Pancreas is obscured by overlying bowel gas. No peripancreatic fluid collection is appreciated. ABDOMINAL AORTA: The proximal, middle, and distal aortic segments are normal in caliber. INFERIOR VENA CAVA: Visualized portions are normal. LIVER: Normal. The liver demonstrates normal size, contour and echogenicity. No focal lesion or intrahepatic biliary duct dilatation. The right lobe measures 14.4 cm in length. The left lobe measures 8.5 cm in length. Portal flow is hepatopedal. Shear wave liver elastography median stiffness is 1.45 m/s (reference: normal median stiffness is 1.3 m/s or less). IQR/median stiffness to assess sampling precision is 0.12 (reference: good quality data set is IQR/median stiffness of 0.15 or less). GALLBLADDER: About the wall there are some echogenic foci without distal sound shadowing consistent with small cholesterol deposits/polyps. Gallbladder wall is not thickened but has appearance of adenomyomatosis. The gallbladder is physiologically distended without evidence of stones, sludge, wall thickening or pericholecystic fluid. COMMON BILE DUCT: Normal in caliber measuring 0.3 cm in diameter. RIGHT KIDNEY: Normal. No hydronephrosis. No renal calculi or focal parenchymal lesions. The kidney measures 12.3 cm in maximum dimension. LEFT KIDNEY: Normal. No hydronephrosis. No renal calculi or focal parenchymal lesions. The kidney measures 10.0 cm in maximum dimension. SPLEEN: Normal. The spleen measures 10.6 cm in maximum dimension. FREE FLUID: None. US/US abdomen comp w elastography IMPRESSION: 1. Gallbladder cholesterol deposits without wall thickening but with appearance of adenomyomatosis. 2. Liver elastography: In the absence of other known clinical signs, measurements rule out compensated advanced chronic liver disease. If there are known clinical signs, further testing may be needed for confirmation. REFERENCE: Society of Radiologists in Ultrasound Liver Stiffness Thresholds (2020): LIVER STIFFNESS THRESHOLDS: *Liver Stiffness equal or less than 1.3 m/s: High probability of being normal. *Liver Stiffness less than 1.7 m/s: In the absence of other known clinical signs, rules out compensated advanced chronic liver disease. *Liver Stiffness 1.7-2.1 m/s: Suggestive of compensated advanced chronic liver disease but need further test for confirmation. *Liver Stiffness over 2.1 m/s: Rules in compensated advanced chronic liver disease. *Liver Stiffness over 2.4 m/s: Suggestive of clinically significant portal hypertension. QUALITY OF DATA SET: *IQR/Median value equal or less than 0.15 implies a quality data set. *IQR/Median value over 0.15 implies a poor quality data set. SIGNIFICANT CHANGE FROM PRIOR EXAM: Significant change if liver stiffness measurement is 10% or greater from prior exam. OTHER CONSIDERATIONS: The stage of liver fibrosis may be overestimated in the setting of acute hepatitis, liver inflammation, elevated liver function tests, hepatic vascular congestion, obstructive cholestasis, non-fasting state, and infiltrative diseases such as amyloidosis and lymphoma. In some patients with NAFLD, the liver stiffness thresholds for compensated advanced chronic liver disease may be lower. In causes other than viral hepatitis and NAFLD, liver stiffness thresholds are not well established.
== END 2023-03-13 08:56 | disposition home or self-care (01) ==
LOC: HO.US 08:55
PROVIDERS: PCP Internal Medicine; Visit Provider Physician Assistant Surgical
DX: Z01.818 Encounter for other preprocedural examination (principal)
CPT/HCPCS: 74246; 76705; 76981

== ENCOUNTER → 2023-03-13 08:58 | Outpatient (BNV) | payer MEDICAID, SELFPAY | PROVIDERS: PCP Internal Medicine; Visit Provider Radiology Diagnostic Radiology | DX: Z01.818 Encounter for other preprocedural examination (principal) | CPT/HCPCS: 74246 ==

== ENCOUNTER 2023-03-20 08:08 | Outpatient (AMB) | payer MEDICAID, SELFPAY ==
--- OUTSIDE RECORDS SUMMARY | 2023-03-20 08:09 | XMS_ITS | Continuity of Care Document ---
Author Name Unknown [facility] Address Unknown Care Team Providers Care Pantograph Setter Name Role Phone Not on Staff, PCP Primary Care Physician Unavail able [facility]counter [facility] Date(s): 03/29/21 - 04/28/21 [facility] Allergies, Adverse Reactions, Alerts Substance Reaction Severity Status ibuprofen full body hives Active Immunizations Given and Recorded Vaccine Date Status Refusal Reason influenza virus vaccine, inactivated 09/11/17 Give n influenza virus vaccine, inactivated 05/15/13 Give n diphtheria/tetanus/pertussis, acel(DTaP) 09/11/17 Given Human Papillomavirus Vaccine 08/01/16 Given Human Papillomavirus Vaccine 04/22/15 Given Gardasil (oldterm) 1 03/09/15 Given 1Result Comment: [03/09/2015] Gardasil 9, #1 injection Medications albuterol 90 mcg/inh inhalation powder 2 puffs, Inhalation, Every 4 hours, PRN as needed, # 1 each, 0 Refills, Maintenance, 07/04/20 8:40:00 EST, Powder, Partial fill upon patient request Start Date: 07/04/20 Status: Ordered Bactrim 400 mg-80 mg oral tablet 1 tablet, By Mouth, 2 times a day, # 10 tablet, 0 Refills, Maintenance, 04/14/21 14:51:00 EDT, Tablet, [id number], Partial fill upon patient request if the prescription is for a schedule II opioid drug., 1 tablet By Mouth 2 times a da... Start Date: 04/14/21 Status: Ordered Valium 2 mg oral tablet 2 mg, 1, tablet, By Mouth, 3 times a day, PRN, Refills 0, Maintenance, as needed for anxiety, 09/23/19 14:19:00 EST Start Date: 09/23/19 Status: Ordered Problem List Condition Effective Dates Status Health Status Inform ant Asthma(Confirmed) Active Last pap smear 05/19/19 negative(Confirmed) Active Chronic pelvic pain in female(Confirmed) Active Dysmenorrhea(Confirmed) Active Irregular menses(Confirmed) Active Obesity(Confirmed) Active Dyspareunia in female(Confirmed) Active History of depression(Confirmed) Active Social History Social History Type Response Smoking Status Never (less than 100 in lifetime) entered on: 09/22/18 Sex
--- OUTSIDE RECORDS SUMMARY | 2023-03-20 08:09 | XMS_ITS | Continuity of Care Document ---
Author Name Unknown Organization [facility] [employer] Address [address] [place] [address], [address] [place] [address]- Care Team Providers Care Cable Splicer Apprentice Name Role Phone Ambreen Carney CNM Primary Care Physician [place] [facility] [place] - 04/23/20 [facility] [address], [address] [place] [address]- [facility] Attending Physician: Eunice DORADO, Pedro Lai Referring Physician: Ambreen Carney CNM Allergies, Adverse Reactions, Alerts Substance Reaction Severity Status ibuprofen Hives Active Immunizations Given and Recorded Vaccine Date Status Refusal Reason influenza virus vaccine, inactivated 09/11/17 Give n influenza virus vaccine, inactivated 05/15/13 Give n diphtheria/tetanus/pertussis, acel(DTaP) 09/11/17 Given Human Papillomavirus Vaccine 08/01/16 Given Human Papillomavirus Vaccine 04/22/15 Given Gardasil (oldterm) 1 03/09/15 Given 1Result Comment: [03/09/2015] Gardasil 9, #1 injection Medications levothyroxine 0.088 mg oral tablet 1 tablet = 88 mcg, By Mouth, Daily, # 90 tablet, 3 Refills, Maintenance, 12/03/18 11:29:32 EDT, Tablet Start Date: 12/03/18 Stop Date: 11/28/19 Status: Ordered Lexapro 5 mg oral tablet See Instructions, take 1/2 tab qd po x 5 days then take 1 tab/day. cancel rx for sertraline, # 30 tablet, 1 Refills, Maintenance, 07/24/18 9:45:32 EST, Tablet Start Date: 07/24/18 Status: Ordered Trazodone By Mouth, 2 times a day, 0 Refills, Maintenance, 09/23/19 14:19:00 EST Start Date: 09/23/19 Status: Ordered Valium 2 mg oral tablet 2 mg, 1, tablet, By Mouth, 3 times a day, Refills 0, Maintenance, 09/23/19 14:19:00 EST Start Date: 09/23/19 Status: Ordered Problem List Condition Effective Dates Status Health Status Inform ant Asthma(Confirmed) Active Last pap smear 05/19/19 negative(Confirmed) Active Chronic pelvic pain in female(Confirmed) Active Dysmenorrhea(Confirmed) Active Irregular menses(Confirmed) Active Obesity(Confirmed) Active History of depression(Confirmed) Active Social History Social History Type Response Smoking Status Never (less than 100 in lifetime) entered on: 09/22/18 Sex
--- OUTSIDE RECORDS SUMMARY | 2023-03-20 08:09 | XMS_ITS | Continuity of Care Document ---
Author Name Unknown Organization [facility] [employer] Address [address], [address] [place] [address]- Care Team Providers Care Mud Car Worker Name Role Phone Ambreen Carney CNM Primary Care Physician [id number] - [facility]26[facility]19 [employer] [facility] [address], [address] [place] [address]- Attending Physician: Pedro Dawson MD Allergies, Adverse Reactions, Alerts Substance Reaction Severity [...] EST, Tablet Start Date: 07/24/18 Status: Ordered NIFEdipine 20 mg oral capsule See Instructions, Take 1 capsule 30-60 min prior to sexual activity. May increase up to 3 capsules if not effective., # 60 capsule, 4 Refills, Maintenance, 10/07/19 17:54:00 EST, [id number], 162, cm, 09/23/19 14:13:00 EST, Height, 110... Start Date: 10/07/19 Status: Ordered Trazodone By Mouth, 2 times [...] Active Obesity(Confirmed) Active History of depression(Confirmed) Active Procedures Procedure Date Related Diagnosis Body Site Status Dilation and curettage for c ompletion of missed 02/22/15 Completed Social History Social History Type Response Smoking Status Never (less than 100 in lifetime) entered on: 09/22/18 Sex
--- OUTSIDE RECORDS SUMMARY | 2023-03-20 08:09 | XMS_ITS | Continuity of Care Document ---
Author Name Unknown Organization [facility] Address Unknown Care Team Providers Care Dietary Services Director Name Role Phone Not on Staff, PCP Primary Care Physician Unavail able En[facility] Date(s): 10/18/21 - 12/14/21 [facility] Attending Physician: Not on Staff, Attending MD Referring Physician: Rachana Peraza CNM Allergies, Adverse Reactions, Alerts Substance Reaction [...] patient request Start Date: 07/04/20 Status: Ordered baclofen 5 mg oral tablet 2 tablet = 10 mg, By Mouth, 3 times a day, PRN Pain , Moderate, # 18 tablet, 0 Refills, Maintenance, 09/23/21 7:21:00 EST, Tablet, [id number], Partial fill upon patient request if the prescription is for a schedule II opioid drug., 16... Start Date: 09/23/21 Stop Date: 09/26/21 Status: Ordered Bactrim 400 mg-80 mg oral tablet 1 tablet, By Mouth, 2 times a day, # 10 tablet, 0 Refills, Maintenance, 04/14/21 14:51:00 EDT, Tablet, [id number], Partial fill upon patient request if the [...]
--- OUTSIDE RECORDS SUMMARY | 2023-03-20 08:09 | XMS_ITS | Continuity of Care Document ---
Author Name Unknown Organization [facility] Address [address]. [address] [place] [address]- Care Team Providers Care Machine Clerical Verifier Name Role Phone Not on Staff, PCP Primary Care Physician Unavail able [place] [facility] Date(s): 11/22/20 - 03/16/21 [facility] [address] [address]- Attending Physician: Not on Staff, Attending MD Admitting Physician: Byron Ang MD Referring Physician: Ambreen Carney CNM Allergies, Adverse [...] patient request Start Date: 07/04/20 Status: Ordered Valium 2 mg oral tablet 2 mg, 1, tablet, By Mouth, 3 times a day, PRN, Refills 0, Maintenance, as needed for anxiety, 09/23/19 14:19:00 EST Start Date: 2/12/20 Status: Ordered Problem List Condition Effective Dates [...]
--- OUTSIDE RECORDS SUMMARY | 2023-03-20 08:09 | XMS_ITS | Continuity of Care Document ---
Author Name Unknown Organization [facility] Address [address] [place] [address]- Care Team Providers Care Sales Representative Womens Health Name Role Phone Ambreen Carney CNM Primary Care Physician [place] [facility] [place] Date(s): 02/04/20 - 03/09/[address] [address]- [facility] Attending Physician: Pedro Dawson MD Admitting Physician: Pedro Dawson MD Referring Physician: Pedro Dawson MD Allergies, Adverse Reactions, [...] Refills, Maintenance, 09/23/19 14:19:00 EST Start Date: 2/12/20 Status: Ordered Valium 2 mg oral tablet [...]
--- OUTSIDE RECORDS SUMMARY | 2023-03-20 08:09 | XMS_ITS | Continuity of Care Document ---
Author Name Unknown Organization [facility] [employer] Address [address], [address] [place] [address]- Care Team Providers Care Art Teacher Name Role Phone Ambreen Carney CNM Primary Care Physician [place] [facility] [place] 11/19/19 - 11/29/19 [facility] [employer] [facility] [address], [address] [place] [address]- Attending Physician: Admtia, Joseph8 Admitting Physician: AdmtrJade Referring Physician: Admtr, Ar8 Allergies, Adverse Reactions, Alerts Substance Reaction Severity [...] capsule, 4 Refills, Maintenance, 10/07/19 17:54:00 EST, [facility][id number], 162, cm, 09/23/19 14:13:00 EST, Height, 110... [...]
--- OUTSIDE RECORDS SUMMARY | 2023-03-20 08:09 | XMS_ITS | Continuity of Care Document ---
Author Name Unknown Organization [facility] [employer] [facility] Address [address] [facility], [address] [place] [address]- Care Team Providers Care Mental Health Nurse Practitioner Name Role Phone Not on Staff, PCP Primary Care Physician Unavail able Encounter [facility] Date(s): 06/21/20 - 07/21/20 [facility] [employer] [facility] [address] [facility], [address] [place] [address]- Allergies, Adverse Reactions, Alerts Substance Reaction Severity [...]
--- OUTSIDE RECORDS SUMMARY | 2023-03-20 08:09 | XMS_ITS | Continuity of Care Document ---
Author Name Unknown Organization [facility] [employer] [facility] Address [address], [address] [place] [address]- Care Team Providers Care Green Meat Packer Name Role Phone Not on Staff, PCP Primary Care Physician Unavail able Encounter [facility] Date(s): 06/21/20 - 07/21/20 [facility] [employer] [facility] [address], [address] [place] [address]- Allergies, Adverse Reactions, Alerts Substance Reaction Severity [...]
--- OUTSIDE RECORDS SUMMARY | 2023-03-20 08:09 | XMS_ITS | Continuity of Care Document ---
Author Name Unknown Organization [facility] [employer] Address [address] [place] [address], [address] [place] [address]- Care Team Providers Care Plater [employer]ed [employer] Board Panels Name Role Phone Not on Staff, PCP Primary Care Physician Unavail able En[facility] Date(s): 08/25/20 - 09/24/20 [facility] [facility] [address] [address] [place], [place] [email or web address] Attending Physician: Jade Horne Admitting Physician: Jade Horne Referring Physician: Jade Horne Allergies, Adverse Reactions, Alerts Substance Reaction Severity [...] Inform ant Asthma(Confirmed) Active Last pap smear 10/8/19 negative(Confirmed) Active Chronic pelvic pain in female(Confirmed) Active Dysmenorrhea(Confirmed) Active Irregular menses(Confirmed) Active Obesity(Confirmed) Active Dyspareunia in female(Confirmed) Active History of depression(Confirmed) Active Social History Social History Type Response Smoking Status Never (less than 100 in lifetime) entered on: 09/22/18 Sex
--- OUTSIDE RECORDS SUMMARY | 2023-03-20 08:09 | XMS_ITS | Continuity of Care Document ---
Author Name Unknown Organization [facility] [employer] Address [address] [place] [address], [address] [place] [address]- Care Team Providers Care Relay Engineer Name Role Phone Ambreen Carney CNM Primary Care Physician [place] [facility] [place] 03/19/20 [facility] [employer] [facility] [address], [address] [place] [address]- [facility] Attending Physician: Pedro Dawson MD Referring Physician: Ambreen Carney CNM Allergies, [...]
--- OUTSIDE RECORDS SUMMARY | 2023-03-20 08:09 | XMS_ITS | Continuity of Care Document ---
Author Name Unknown Organization [facility] ter Address [address] [place] [address]- Care Team Providers Care Fishing Instructor Name Role Phone Ambreen Carney CNM Primary Care Physician [place] [facility] [place] Date(s): 01/13/20 - 03/06/[address] [address]- [facility] Attending Physician: Pedro Dawson MD Admitting Physician: Pedro Dawson MD Allergies, Adverse Reactions, [...]
--- OUTSIDE RECORDS SUMMARY | 2023-03-20 08:09 | XMS_ITS | Continuity of Care Document ---
Author Name Unknown Organization [facility] Address [address] [address]- Care Team Providers Care Vice President Research Name Role Phone Not on Staff, PCP Primary Care Physician Unavail able [facility] Date[facility]s): 09/23/19 - 10/03/19 [facility] [address] [place] [address]- [facility] Attending Physician: Jade Horne Admitting Physician: AdmJade weber Referring Physician: AdmtrJade Allergies, Adverse Reactions, Alerts Substance Reaction Severity Status ibuprofen Hives Active Immunizations Given and Recorded Vaccine Date Status Refusal Reason influenza virus vaccine, inactivated 09/11/17 Give n influenza virus vaccine, inactivated 05/15/13 Give n diphtheria/tetanus/pertussis, acel(DTaP) 09/11/17 Given Human Papillomavirus Vaccine 08/01/16 Given Human Papillomavirus Vaccine 04/22/15 Given Gardasil (oldterm) 1 03/09/15 Given 1Result Comment: [03/09/2015] Gardasil 9, #1 injection Medications gabapentin 300 mg oral capsule 300 mg, 1, capsule, By Mouth, 2 times a day, # 60 capsule, Refills 6, Tot. Refills 6, Maintenance, 09/23/19 14:29:00 EST, Route to Pharmacy Electronically, [facility][id number], 162, cm, 09/23/19 14:13:00 EST, Height, 110, kg, 12/02/18 10:31:00... Start Date: 09/23/19 Status: Ordered levothyroxine 0.088 mg oral tablet 1 tablet [...] Status Health Status Inform ant Asthma(Confirmed) Active depression(Confirmed) Active Social History Social History Type Response Smoking Status Never (less than 100 in lifetime) entered on: 09/22/18 Sex
--- OUTSIDE RECORDS SUMMARY | 2023-03-20 08:09 | XMS_ITS | Continuity of Care Document ---
Author Name Unknown Organization [facility] [employer] Address [address] [facility], [address] [place] [address]- Care Team Providers Care Local Az Truck Driver Name Role Phone Ambreen Carney CNM Primary Care Physician [id number] Date(s): 01/28/20 - 02/04/20 [employer] [facility] [address] [facility], 4th [place] [address]- [facility] Attending Physician: Pedro Dawson MD Referring Physician: [...] Active Obesity(Confirmed) Active History of depression(Confirmed) Active Vital Signs Most recent to oldest [Reference Range]: 1 Height 162 cm (01/28/20 10:37 AM) Weight 107.2 kg (01/28/20 10:37 AM) Body Mass Index [18.5-24.99] 40.85 *>HHI* (01/28/20 10:37 AM) Blood Pressure [90-138/55-84 mm Hg] 106/ 60mm Hg (01/28/20 10:37 AM) Blood pressure sites Arm, left (01/28/20 10:37 AM) Weight Obtained Via Standing scale (01/28/20 10:37 AM) Social History Social History Type Response Smoking Status Never (less than 100 in lifetime) entered on: 09/22/18 Sex
--- OUTSIDE RECORDS SUMMARY | 2023-03-20 08:09 | XMS_ITS | Continuity of Care Document ---
Author Name Unknown Organization [facility] ter Address [address] [place] [address]- Care Team Providers Care Helicopter Mechanic Name Role Phone Not on Staff, PCP Primary Care Physician Unavail able Encounter [facility] Date(s): 03/12/20 - 08/05/[address] [address]- Attending Physician: Pedro Dawson MD Admitting Physician: [...] in female(Confirmed) Active History of depression(Confirmed) Active Vital Signs Most recent to oldest [Reference Range]: 1 Height 160.02 cm (07/04/20 8:40 AM) Weight 111.36 kg (07/04/20 8:40 AM) Body Mass Index [18.5-24.99] 43.49 *>HHI* (07/04/20 8:40 AM) Dry Weight 111.36 kg (07/04/20 8:40 AM) Weight Obtained Via Patient/family state d (07/04/20 8:40 AM) Dry Weight Obtained Via Patient/family s tated (07/04/20 8:40 AM) Social History Social History Type Response Smoking Status Never (less than 100 in lifetime) entered on: 09/22/18 Sex
--- OUTSIDE RECORDS SUMMARY | 2023-03-20 08:09 | XMS_ITS | Continuity of Care Document ---
Author Name Unknown Organization [facility] Address Unknown Care Team Providers Care Lining Feller Name Role Phone Not on Staff, PCP Primary Care Physician Unavail able [facility] Date(s): 04/21/21 - 05/21/21 [facility] Attending Physician: Jade Horne Admitting Physician: Jade Horne Referring Physician: AdmtrJade Allergies, Adverse Reactions, Alerts [...] 0 Refills, Maintenance, 04/14/21 14:51:00 EDT, Tablet, [facility][id number], Partial fill upon patient request if the [...]
--- OUTSIDE RECORDS SUMMARY | 2023-03-20 08:09 | XMS_ITS | Continuity of Care Document ---
Author Name Unknown Organization [facility] [employer] [facility] Address [address] [place] [address], 4t [place] [address]- Care Team Providers Care Technical Support 1 Software Engineer Name Role Phone Not on Staff, PCP Primary Care Physician Unavail able Encounter [facility] Date(s): 05/27/20 - 09/24/20 [facility] [employer] [facility] [address] [facility], 4th [place] [address]- Attending Physician: Eunice DORADO, Pedro Lai Referring [...]
--- OUTSIDE RECORDS SUMMARY | 2023-03-20 08:10 | XMS_ITS | Continuity of Care Document ---
Author Name Unknown Organization [facility] ter Address [address] [place] [address]- Care Team Providers Care Chiropractic Care Name Role Phone Not on Staff, PCP Primary Care Physician Unavail able [facility]counter [facility] Date(s): 06/22/20 - 07/31/[address] [address]- Attending Physician: Pedro Dawson MD Admitting Physician: [...]
--- OUTSIDE RECORDS SUMMARY | 2023-03-20 08:10 | XMS_ITS | Continuity of Care Document ---
Author Name Unknown Organization [facility] Address Unknown Care Team Providers Care Pharmacy Technologist Name Role Phone Not on Staff, PCP Primary Care Physician Unavail able [facility] Date(s): 04/14/21 - 05/14/21 [facility] Allergies, Adverse Reactions, Alerts Substance Reaction Severity [...] 0 Refills, Maintenance, 04/14/21 14:51:00 EDT, Tablet, [facility] #[id number], Partial fill upon patient request if the [...]
--- OUTSIDE RECORDS SUMMARY | 2023-03-20 08:10 | XMS_ITS | Continuity of Care Document ---
Author Name Unknown Organization [facility] Address Unknown Care Team Providers Care Transfer Table Operator Helper Name Role Phone Not on Staff, PCP Primary Care Physician Unavail able [facility]counter [facility] Date(s): 11/14/21 - 12/14/21 [facility] Attending Physician: Jade Horne Admitting Physician: [...] 0 Refills, Maintenance, 09/23/21 7:21:00 EST, Tablet, [facility][id number], Partial fill upon patient request if the prescription is for a schedule II opioid drug., 16... Start Date: 09/23/21 Stop Date: 09/26/21 Status: Ordered Bactrim 400 mg-80 mg oral tablet 1 tablet, By Mouth, 2 times a day, # 10 tablet, 0 Refills, Maintenance, 04/14/21 14:51:00 EDT, Tablet, [facility] #[id number], Partial fill upon patient request if the [...]
--- OUTSIDE RECORDS SUMMARY | 2023-03-20 08:10 | XMS_ITS | Continuity of Care Document ---
Author Name Unknown Organization [facility] Address [address] [address]- Care Team Providers Care Controls Design Engineer Name Role Phone Not on Staff, PCP Primary Care Physician Unavail able [facility] Date(s): 09/14/20 - 11/10/20 [facility] [address] [address]- Attending Physician: Ambreen Carney CNM Admitting Physician: Ambreen Carney CNM Referring Physician: Ambreen Carney CNM Allergies, Adverse [...]
--- OUTSIDE RECORDS SUMMARY | 2023-03-20 08:10 | XMS_ITS | Continuity of Care Document ---
Author Name Unknown Organization [facility] [employer] Address [address] [facility], 4t [place] [address]- Care Team Providers Care Coping Machine Assembler Name Role Phone Ambreen Carney CNM Primary Care Physician Encounter [facility] Date(s): 02/22/20 - 03/23/20 [facility] [employer] [facility] [address] [facility], 4th [place] [address]- [facility] Allergies, Adverse Reactions, Alerts Substance Reaction [...]
--- OUTSIDE RECORDS SUMMARY | 2023-03-20 08:10 | XMS_ITS | Continuity of Care Document ---
Author Name Unknown Organization [facility] Address [address] [place] [address]- Care Team Providers Care Chancery Clerk Name Role Phone Ambreen Carney CNM Primary Care Physician Encounter [facility] Date(s): 10/19/19 - 10/29/19 [place] [address]- [facility] Attending Physician: Jade Horne Admitting Physician: AdmJade weber Referring Physician: Admtr, Jade Allergies, Adverse Reactions, Alerts Substance Reaction Severity [...] capsule, 4 Refills, Maintenance, 10/07/19 17:54:00 EST, [facility][id number], 162, cm, 09/23/19 14:13:00 EST, Height, 110... [...]
--- OUTSIDE RECORDS SUMMARY | 2023-03-20 08:10 | XMS_ITS | Continuity of Care Document ---
Author Name Unknown Organization [facility] Address Unknown Care Team Providers Care Roller Repairer Name Role Phone Not on Staff, PCP Primary Care Physician Unavail able [facility] Date(s): 04/14/21 - 05/14/21 [facility] Allergies, Adverse Reactions, Alerts Substance Reaction Severity [...] 0 Refills, Maintenance, 04/14/21 14:51:00 EDT, Tablet, [facility][id number], Partial fill upon patient request if the [...]
--- OUTSIDE RECORDS SUMMARY | 2023-03-20 08:10 | XMS_ITS | Continuity of Care Document ---
Author Name Unknown Organization [facility] [employer] Address [address] [place] [address], [address]t [place] [address]- Care Team Providers Care Kiln Tender Name Role Phone Not on Staff, PCP Primary Care Physician Unavail able Encounter [facility] Date(s): 04/29/20 - 08/27/20 [facility] [employer] [address] [facility], 4th [place] [address]- Attending Physician: Eunice DORADO, Pedro Lai Referring [...]
--- OUTSIDE RECORDS SUMMARY | 2023-03-20 08:10 | XMS_ITS | Continuity of Care Document ---
Author Name Unknown Organization [facility] Address [address] [place] [address]- Care Team Providers Care Calender Operator Helper Name Role Phone Not on Staff, PCP Primary Care Physician Unavail able [facility]counter [facility] Date(s): 11/04/20 - 12/04/[address] [address]- Allergies, Adverse Reactions, Alerts Substance Reaction Severity [...]
--- OUTSIDE RECORDS SUMMARY | 2023-03-20 08:10 | XMS_ITS | Continuity of Care Document ---
Author Name Unknown Organization [facility] [employer] Address [address] [facility], [address] [place] [address]- Care Team Providers Care Tower Helper Name Role Phone Ambreen Carney CNM Primary Care Physician [id number] Date(s): 09/23/19 - 12/19/19 [employer] [facility] [address] [facility], 4th [place] [address]- [facility] Attending Physician: Pedro Dawson MD Referring Physician: [...] capsule, 4 Refills, Maintenance, 10/07/19 17:54:00 EST, [facility][id number], 162, cm, 09/23/19 14:13:00 EST, Height, 110... [...]
--- OUTSIDE RECORDS SUMMARY | 2023-03-20 08:10 | XMS_ITS | Continuity of Care Document ---
Author Name Unknown Organization [facility] [employer] [facility] Address [address] [facility], 4t [place] [address]- Care Team Providers Care Model Home Sales Greeter Name Role Phone Not on Staff, PCP Primary Care Physician Unavail able [facility] Date(s): 06/23/20 - 07/23/20 [facility] Re[facility] [address] [facility], [address] [place] [address]- Allergies, Adverse Reactions, Alerts Substance Reaction Severity [...]
--- OUTSIDE RECORDS SUMMARY | 2023-03-20 08:10 | XMS_ITS | Continuity of Care Document ---
Author Name Unknown Organization [facility] Address [address] [facility] [address] [place] [address]- Care Team Providers Care Corporate Specialist Name Role Phone Not on Staff, PCP Primary Care Physician Unavail able [facility]counter [facility] Date(s): 02/16/21 - 03/18/21 [facility] [address] [address]- Allergies, Adverse Reactions, Alerts Substance Reaction Severity [...]
--- OUTSIDE RECORDS SUMMARY | 2023-03-20 08:10 | XMS_ITS | Continuity of Care Document ---
Author Name Unknown Organization [facility] Address [address] [place] [address]- Care Team Providers Care Screen Printing Inspector Name Role Phone Not on Staff, PCP Primary Care Physician Unavail able [facility]counter [facility] Date(s): 11/04/20 - 12/04/[address] [address]- Allergies, Adverse Reactions, Alerts Substance Reaction Severity [...]
--- OUTSIDE RECORDS SUMMARY | 2023-03-20 08:10 | XMS_ITS | Continuity of Care Document ---
Author Name Unknown Organization [facility] Address [address] [place] [address]- Care Team Providers Care Studio Data Analyst Name Role Phone Ambreen Carney CNM Primary Care Physician Encounter [facility] Date(s): 10/13/19 - 11/18/[address] [address]- [facility] Attending Physician: Ambreen Carney CNM Admitting Physician: Ambreen Carney CNM Allergies, Adverse Reactions, [...] capsule, 4 Refills, Maintenance, 10/07/19 17:54:00 EST, [facility][id number], 162, cm, 09/23/19 14:13:00 EST, Height, 110... [...]
--- OUTSIDE RECORDS SUMMARY | 2023-03-20 08:10 | XMS_ITS | Continuity of Care Document ---
Author Name Unknown Organization [facility] [place] [employer] Address [address] [place] [address], [address] [address]- Care Team Providers Care Music Professor Name Role Phone Ambreen Carney CNM Primary Care Physician Encounter [facility] Date(s): 01/22/20 - 05/21/20 [facility] [employer] [facility] [address] [facility], [address]th [place] [address]- [facility] Attending Physician: Eunice DORADO, Pedro Lai Referring [...]
--- OUTSIDE RECORDS SUMMARY | 2023-03-20 08:10 | XMS_ITS | Continuity of Care Document ---
Author Name Unknown Organization [facility] ter Address [address] [place] [address]- Care Team Providers Care Dye Range Feeder Name Role Phone Not on Staff, PCP Primary Care Physician Unavail able Encounter [facility] Date(s): 09/23/21 - 09/23/[address] [address]- Discharge Disposition: A-D/C Home Attending Physician: Fei Fernandez MD Admitting Physician: Fei Fernandez MD Referring Physician: Not on Staff, Referring MD Allergies, Adverse Reactions, Alerts Substance Reaction [...] 0 Refills, Maintenance, 09/23/21 7:21:00 EST, Tablet, [facility] #[id number], Partial fill upon patient request if the prescription is for a schedule II opioid drug., 16... Start Date: 09/23/21 Stop Date: 09/26/21 Status: Ordered Bactrim 400 mg-80 mg oral tablet 1 tablet, By Mouth, 2 times a day, # 10 tablet, 0 Refills, Maintenance, 04/14/21 14:51:00 EDT, Tablet, [facility] #[id number], Partial fill upon patient request if the [...] Most recent to oldest [Reference Range]: 1 2 Oxygen Saturation [94-100 %] 99 % (09/23/21 7:34 AM) 100 % (09/23/21 5:47 AM) Pulse Rate [55-90 bpm] 98 bpm *H* (09/23/21 5:47 AM) Blood Pressure [90-138/55-84 mm Hg] 133/ 76mm Hg (09/23/21 7:34 AM) 142/89mm Hg *H* (09/23/21 5:47 AM) Respiratory Rate [16-30 br/min] 18 br/mi n (09/23/21 7:34 AM) 16 br/min (09/23/21 5:47 AM) Temperature [96.8-100.4 DegF] 98.7 DegF (09/23/21 5:47 AM) Mode of Delivery (Oxygen) Room air (09/23/21 7:34 AM) Blood pressure sites Arm, right (09/23/21 7:34 AM) Temperature Route Oral (09/23/21 5:47 AM) Social History Social History Type Response Smoking Status Never (less than 100 in lifetime) entered on: 2/11/19 Sex
--- OUTSIDE RECORDS SUMMARY | 2023-03-20 08:10 | XMS_ITS | Continuity of Care Document ---
Author Name Unknown Organization [facility] Address Unknown Care Team Providers Care Quill Picking Machine Operator Name Role Phone Not on Staff, PCP Primary Care Physician Unavail able [facility] Date(s): 02/21/21 - 05/21/21 [facility] Attending Physician: Not on Staff, Attending MD Admitting Physician: Sav DORADO, Byron Ceja Referring Physician: Selina Martinez CNM Allergies, Adverse Reactions, Alerts Substance Reaction [...] 0 Refills, Maintenance, 04/14/21 14:51:00 EDT, Tablet, [facility] #[id number], Partial fill upon patient request if the [...]
--- NOTE | 2023-03-20 11:50 | A.OFFVIS_ITS ---
Intake VS Expanded 03/20/23 12:05 Height 5 ft 2 in Weight 209 lb BMI 38.2 Intake Visit Reasons: TV Consult/Transfer Lazara Allergies ibuprofen [From MOTRIN] Allergy (Mild, Verified 03/20/23 11:50) HIVES Ibuprofen (800 MG) Allergy (Unknown, Uncoded 03/20/23 11:50) RASH Medication List - Last Reconciled 03/20/23 by Javy Tapia MD cholecalciferol (vitamin D3) 125 mcg PO DAILY inulin (Fiber Gummies) 2 grams PO DAILY thiamine HCl (vitamin B1) 100 mg PO DAILY vitamin A palmitate 10,000 units PO DAILY HPI TV Consult/Transfer Lazara HPI Details Start time: 11.35pm, End time: 12.12pm ?I spent 32 minutes speaking with the patient on the phone plus an additional 5 minutes reviewing and updating records for a total of 37 minutes HPI Comments History of Present Illness Details Overall weight loss: 18.4lbs, or 8.09% TBWL Is doing 3 Slimfast premade protein shakes and one meal (8 forks of protein and 8 forks of salad or vegetables) Exercise: Crossfit class 1hr x2/wk [facility] Medical History (Updated 03/20/23 @ 12:07 by Javy Tapia MD) Anxiety Asthma Back pain Depression Hypothyroidism Knee pain Morbid obesity Surgical History Hx of bilateral salpingectomy Family History Mother Hypertension High cholesterol Father Kidney failure Diabetes Hypertension High cholesterol Son Asthma Daughter Asthma Social History Alcohol intake: current Alcohol intake frequency: holidays/special occasions only Patient Tobacco Use Status: Never used Tobacco Assessment & Plan Assessment & Plan (1) Obesity: Code(s): E66.9 - Obesity, unspecified Plan: 1. Plan for lap sleeve gastrectomy. If diaphragmatic or ventral hernias are present at time of surgery, these will be repaired laparoscopically as well. Risks and complications were discussed in detail including possible conversion to an open procedure, anastomotic leak, bleeding requiring transfusion, small bowel obstruction, , DVT and pulmonary embolism, cardiac, or pulmonary complications, as assisted complications such as anastomotic ulcer, insufficient weight loss and vitamin deficiencies. I emphasized the importance of close follow-up, adherence to instructions and good communication. 2. Continue same nutritional plan of 3 Slimfast premade protein shakes and one meal (8 forks of protein and 8 forks of salad or vegetables) 3. Consider trying the [employer] protein bars and let me know if you like them 4. Continue same Exercise: Crossfit class 1hr x2/wk. 5. Consider checking to buy a used statonary bike at home. Let me know if you buy one so I can give you an exercise plan 6. Start sending weight measurements weekly once you receive your new body composition scale (2) BMI 38.0-38.9,adult: Code(s): Z68.38 - Body mass index [BMI] 38.0-38.9, adult Telehealth Telehealth Location of provider rendering services: practice address Location of patient: address on file Patient Identification confirmed using: Name, : Yes Telehealth method: voice only Patient verbally consented to treatment: Yes Patient verbally consented to billing insurance company: Yes Patient informed of any privacy concerns related to visit: Yes Minutes spent on Phone/Video with Pt.: 37 Coding Level of Care Code Tele Est Pt Level 4 ([address]139) Diagnoses Obesity E66.9 BMI 38.0-38.9,adult Z68.38 Time Spent (min) 37
[2023-03-20 12:05] VITALS: BMI 38.2
== END 2023-03-20 12:12 | disposition home or self-care (01) ==
LOC: HO.HBS 08:08
PROVIDERS: PCP Internal Medicine; Visit Provider Surgery
DX: E66.9 Obesity, unspecified (principal); Z68.38 Body mass index [BMI] 38.0-38.9, adult
CPT/HCPCS: 99214

== ENCOUNTER → 2023-03-20 08:08 | Outpatient (BNVA) | payer MEDICAID, SELFPAY | PROVIDERS: PCP Internal Medicine; Visit Provider Surgery ==

== ENCOUNTER 2023-03-21 13:00 | Outpatient (AMB) | payer OTHER, SELFPAY ==
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
== END 2023-03-21 15:02 | disposition home health service (06) ==
PROVIDERS: PCP Internal Medicine; Visit Provider Counselor Mental Health
DX: F41.9 Anxiety disorder, unspecified (principal); F32.A Depression, unspecified
CPT/HCPCS: 90837

== ENCOUNTER 2023-03-21 13:00 | Outpatient (REF) | payer MEDICAID, SELFPAY ==
[2023-03-23 10:30] LABS: H Pylori Breath Test Negative (Negative)
== END 2023-03-21 13:01 | disposition home or self-care (01) ==
LOC: HO.LNP 13:00
PROVIDERS: Physician Assistant Surgical; PCP Internal Medicine; Visit Provider Physician Assistant Surgical
DX: Z11.2 Encounter for screening for other bacterial diseases (principal); F41.9 Anxiety disorder, unspecified; F32.A Depression, unspecified
CPT/HCPCS: 83013; 99211

== ENCOUNTER 2023-04-02 14:18 | Outpatient (AMB) | payer MEDICAID, SELFPAY ==
--- NOTE | 2023-04-02 14:14 | A.OFFVIS_ITS ---
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 Is very picky, doesn't like vegetables 3 days ago experienced an episode of not feeling well, shakiness. Had some apple juice and symptoms went away. this has never happened to her before. I explained this could possibly be hypoglycemia and she should monitor her symptoms and discuss with Dr. Tapia if this happens again. avoid skipping meals and have consistent nutrition Exercise: likes walking with her son. Walks outside daily for at least 2 hours. plus 2x per week strength training in her basement. she also has an acquaintance who is a personal caregiver and will help her SWL online classes: completed. scored well Dietary counseling reduction Diagnosis Nutrition problem #1 overweight/obesity As related to (etiology) #1 excess energy intake and physical inactivity As evidenced by (sign/symptom) #1 high BMI Monitoring/Goals Nutrition problem monitoring total energy intake, level of knowledge/skill, total PRO intake, total CHO intake and weight Outcome progress progressing Learning/Education Readiness to learn good Stages of change action Educational materials provided Yes Most Recent Diabetes Results: No Data to Display [facility] Medical History (Updated 03/20/23 @ 12:07 by Javy Tapia MD) Anxiety Asthma Back pain Depression Hypothyroidism Knee pain Morbid obesity Surgical History Hx of bilateral salpingectomy Family History Mother Hypertension High cholesterol Father Kidney failure Diabetes Hypertension High cholesterol Son Asthma Daughter Asthma Social History Alcohol intake: current Alcohol intake frequency: holidays/special occasions only Patient Tobacco Use Status: Never used Tobacco Assessment & Plan Assessment & Plan (1) Obesity (BMI 30-39.9): Code(s): E66.9 - Obesity, unspecified Patient Instructions: Patient is cleared from a nutrition standpoint for bariatric surgery. Educational requirements have been completed. Reviewed vitamin supplementation and commitment to protein shake for several months post surgery. Encouraged communication with office as needed Telehealth Telehealth Location of provider rendering services: practice address Location of patient: address on file Patient Identification confirmed using: Name, : Yes Telehealth method: video Patient verbally consented to treatment: Yes Patient verbally consented to billing insurance company: Yes Patient informed of any privacy concerns related to visit: Yes Minutes spent on Phone/Video with Pt.: 30 Coding Level of Care Code Nutr Indiv Subseq ([id number]) Diagnoses Obesity (BMI 30-39.9) E66.9 Time Spent (min) 30
[2023-04-02 14:30] VITALS: BMI 37.1
== END 2023-04-02 14:26 | disposition home or self-care (01) ==
LOC: HO.HBS 14:18
PROVIDERS: PCP Internal Medicine; Visit Provider Dietitian, Registered
DX: E66.9 Obesity, unspecified (principal)

== ENCOUNTER → 2023-04-02 14:18 | Outpatient (BNVA) | payer MEDICAID, SELFPAY | PROVIDERS: PCP Internal Medicine; Visit Provider Dietitian, Registered | DX: E66.9 Obesity, unspecified (principal); Z68.37 Body mass index [BMI] 37.0-37.9, adult; Z71.3 Dietary counseling and surveillance | CPT/HCPCS: 97803 ==

== ENCOUNTER 2023-04-17 08:02 | Outpatient (AMB) | payer MEDICAID, SELFPAY ==
--- NOTE | 2023-04-17 10:43 | MHC.OFFVISWM ---
Intake VS Expanded 04/17/23 11:02 Height 5 ft 2 in Weight 202 lb 5 oz BMI 37.0 Body Fat 91.1 Body Fat Percentage 45 Free Fat Mass 111.3 Visceral Mass 13 Water Mass 86.2 BMR 1,567 Intake Visit Reasons: TV Follow Up SWL Allergies ibuprofen [From MOTRIN] Allergy (Mild, Verified 03/20/23 11:50) HIVES Ibuprofen (800 MG) Allergy (Unknown, Uncoded 03/20/23 11:50) RASH HPI TV Follow Up SWL HPI Details Start time: 10.35am, End time: 11.05am ?I spent 25 minutes speaking with the patient on the phone plus an additional 5 minutes reviewing and updating records for a total of 30 minutes HPI Comments History of Present Illness Details Overall weight loss: 24.9lbs, or 10.95% TBWL Is doing 3 premade Slimfast protein shakes and one meal (8 forks of protein and 4 forks of salad or 4 forks of vegetables) Exercise: is going to the Gym x 4/week doing classes with a animal attendants and trainers [facility] Medical History (Updated 04/17/23 @ 10:56 by Javy Tapia MD) Anxiety Asthma Back pain Depression Hypothyroidism Knee pain Morbid obesity Surgical History Hx of bilateral salpingectomy Family History Mother Hypertension High cholesterol Father Kidney failure Diabetes Hypertension High cholesterol Son Asthma Daughter Asthma Social History Alcohol intake: current Alcohol intake frequency: holidays/special occasions only Patient Tobacco Use Status: Never used Tobacco Assessment & Plan Assessment & Plan (1) Obesity: Code(s): E66.9 - Obesity, unspecified Plan: 1. Plan for lap sleeve gastrectomy including upper GI endoscopy. All tests has been completed and reviewed and the patient is cleared for the surgery. ?If diaphragmatic or ventral hernias are present at time of surgery, these will be repaired laparoscopically as well. Risks and complications were discussed in detail including possible conversion to an open procedure, anastomotic leak, bleeding requiring transfusion, small bowel obstruction, , DVT and pulmonary embolism, cardiac, or pulmonary complications, as terminal operator complications such as anastomotic ulcer, insufficient weight loss and vitamin deficiencies. I emphasized the importance of close follow-up, adherence to instructions and good communication. So far she has proven to be an excellent communicator and very compliant with all our directions accomplishing a great weight loss. I believe that she is an excellent candidate and she is ready. 2. Continue same nutritional plan of 3 premade Slimfast protein shakes and one meal (8 forks of protein and 4 forks of salad or 4 forks of vegetables) 3. Try the Zone Perfect protein bars and let me know if you like them 4. Start Elliptical with an incline of 2.0 and resistance of 4.0. Increase resistance by 1 every 3 min to a max resistance of 10.0, and repeat cycles for 500 calories, 4 days per week. Goal is to burn 2000 calories per week on the elliptical. 5. Continue to send me weight measurements weekly on Saturdays (2) BMI 37.0-37.9, adult: Code(s): Z68.37 - Body mass index [BMI] 37.0-37.9, adult Telehealth Telehealth Location of provider rendering services: practice address Location of patient: address on file Patient Identification confirmed using: Name, : Yes Telehealth method: voice only Patient verbally consented to treatment: Yes Patient verbally consented to billing insurance company: Yes Patient informed of any privacy concerns related to visit: Yes Minutes spent on Phone/Video with Pt.: 30 Coding Level of Care Code Tele Est Pt Level 4 (51436) Diagnoses Obesity E66.9 BMI 37.0-37.9, adult Z68.37 Time Spent (min) 30
[2023-04-17 11:02] VITALS: BMI 37.0
== END 2023-04-17 11:06 | disposition home or self-care (01) ==
LOC: HO.HBS 08:02
PROVIDERS: PCP Internal Medicine; Visit Provider Surgery
DX: E66.9 Obesity, unspecified (principal); Z68.37 Body mass index [BMI] 37.0-37.9, adult
CPT/HCPCS: 99214

== ENCOUNTER → 2023-04-17 08:02 | Outpatient (BNVA) | payer SELFPAY | PROVIDERS: PCP Internal Medicine; Visit Provider Surgery ==

== ENCOUNTER 2023-04-18 13:51 | Outpatient (AMB) | payer OTHER, SELFPAY ==
--- NOTE | 2023-04-18 14:45 | A.OFFWM_ITS ---
Intake Intake Visit Reasons: (OV) BH F/U Allergies ibuprofen [From MOTRIN] Allergy (Mild, Verified 04/24/23 10:53) HIVES Ibuprofen (800 MG) Allergy (Unknown, Uncoded 04/24/23 10:53) [facility] Medical History (Updated 04/30/23 @ 21:22 by Javy Tapia MD) Knee pain Back pain Anxiety Depression Morbid obesity Hypothyroidism Asthma Surgical History (Updated 04/30/23 @ 15:58 by Lavonne Ayala PA-C) Hx of tubal ligation Hx of bilateral salpingectomy Family History Mother Hypertension High cholesterol Father Kidney failure Diabetes Hypertension High cholesterol Son Asthma Daughter Asthma Social History Household Members: Family Housing: Apartment Are you a primary rn home care to a significant other at home: No Do you presently have visiting nurse or other home services: No Alcohol intake: current Alcohol intake frequency: does not drink Patient Tobacco Use Status: Never used Tobacco Use of substances other than those prescribed or required for medical reasons: No Currently Displaying Signs/Symptoms of Drug Intoxication Withdrawal: No Have you been hit, kicked, punched, or otherwise hurt by someone within the past year? If so, by whom?: No Do you feel safe in your current relationship?: Yes Is there a partner from a previous relationship who is making you feel unsafe now?: No Are you made to feel afraid or neglected: No Are you DNR?: No Advance Directives: No Advance Directives Information Provided: No Advance Directives on File: No Do you have thoughts of harming others: None Do you have a plan to hurt others: No Plan Recently lost weight without trying: No Eating poorly because of decreased appetite: No Nutrition Risks: No Nutritional Risk Patient : No : No Poor oral hygiene: No service: No Behavioral Health Assessment Weight Management Therapy Therapy Notes Details PT presents for a f/up INTERVENTIONS: supportive listening, processed functioning/progress and needs. Validated and normalized feelings. Congratulated pt for progress and success with weight loss journey. Worked in Sx management and relapse prevention plan. RESPONSE:Open, active and engaged. MSE within normal limits. PT stable. PLAN: continue meeting with this provider for support. Presenting Concerns Referral Source WMP Provider. Reason for referral Completion of behavioral health assessment as part of process for weight-loss surgery. Precipitating Event Obesity, Thyroid issues. Assessment & Plan Assessment & Plan (1) Anxiety: Code(s): F41.9 - Anxiety disorder, unspecified (2) Depression: Code(s): F32.A - Depression, unspecified Qualifiers: Depression Type: unspecified Qualified Code(s): F32.A - Depression, unspecified Plan Pt has been cleared. F/up in 2-3 weeks to continue receiving BH support. Coding Level of Care Code Established Pt Psytx >53 mins (33705) Patient Type Established Diagnoses Anxiety F41.9 Depression, unspecified depression type F32.A Depression Type: unspecified Time Spent (min) 60
== END 2023-04-18 15:01 | disposition home or self-care (01) ==
PROVIDERS: PCP Internal Medicine; Visit Provider Counselor Mental Health
DX: F41.9 Anxiety disorder, unspecified (principal); F32.A Depression, unspecified
CPT/HCPCS: 90837

== ENCOUNTER → 2023-04-18 13:51 | Outpatient (BNVA) | payer OTHER, MEDICAID, SELFPAY | PROVIDERS: PCP Internal Medicine; Visit Provider Counselor Mental Health ==

== ENCOUNTER 2023-04-24 09:27 | Outpatient (AMB) | payer MEDICAID, SELFPAY ==
--- NOTE | 2023-04-24 10:53 | MHC.OFFVISWM ---
Intake VS Expanded 04/24/23 11:09 Height 5 ft 2 in Weight 201 lb 9 oz BMI 36.9 Body Fat 91.1 Body Fat Percentage 45 Free Fat Mass 111.3 Visceral Mass 13 Water Mass 86.2 BMR 1,567 Intake Visit Reasons: TV Pre Op LSG 04/30/23 Allergies ibuprofen [From MOTRIN] Allergy (Mild, Verified 04/24/23 10:53) HIVES Ibuprofen (800 MG) Allergy (Unknown, Uncoded 04/24/23 10:53) RASH Medication List - Last Reconciled 04/24/23 by Javy Tapia MD cholecalciferol (vitamin D3) 125 mcg PO DAILY inulin (Fiber Gummies) 2 grams PO DAILY ondansetron 4 mg PO Q12H pantoprazole 40 mg PO DAILY polyethylene glycol 3350 (Miralax) 17 grams PO DAILY sucralfate 10 mL PO BID thiamine HCl (vitamin B1) 100 mg PO DAILY vitamin A palmitate 10,000 units PO DAILY HPI TV Pre Op LSG 04/30/23 HPI Details Start time: 11.13am, End time: 11.33am ?I spent 25 minutes speaking with the patient on the phone plus an additional 5 minutes reviewing and updating records for a total of 30 minutes HPI Comments History of Present Illness Details Overall weight loss: 25.5lbs, or 11.21% TBWL Continue same nutritional plan of 3 premade Slimfast protein shakes and one meal (8 forks of protein and 4 forks of salad or 4 forks of vegetables) Exercise: is doing the Elliptical x4/week for 1 hour [facility] Medical History (Updated 04/18/23 @ 15:02 by Elena Wolfe [facility]) Knee pain Back pain Anxiety Depression Morbid obesity Hypothyroidism Asthma Surgical History Hx of bilateral salpingectomy Family History Mother Hypertension High cholesterol Father Kidney failure Diabetes Hypertension High cholesterol Son Asthma Daughter Asthma Social History Alcohol intake: current Alcohol intake frequency: holidays/special occasions only Patient Tobacco Use Status: Never used Tobacco Physical Exam Vital Signs: BMI result Body Mass Index 37.0 Assessment & Plan Assessment & Plan (1) Obesity: Code(s): E66.9 - Obesity, unspecified Plan: 1. Plan for lap sleeve gastrectomy including upper GI endoscopy. All tests has been completed and reviewed and the patient is cleared for the surgery. ?If diaphragmatic or ventral hernias are present at time of surgery, these will be repaired laparoscopically as well. Risks and complications were discussed in detail including possible conversion to an open procedure, anastomotic leak, bleeding requiring transfusion, small bowel obstruction, , DVT and pulmonary embolism, cardiac, or pulmonary complications, as jail complications such as anastomotic ulcer, insufficient weight loss and vitamin deficiencies. I emphasized the importance of close follow-up, adherence to instructions and good communication. So far she has proven to be an excellent communicator and very compliant with all our directions accomplishing a great weight loss. I believe that she is an excellent candidate and she is ready. 2. Preop prescriptions were provided and explained the purpose of each one. Need to be purchased preop. Start Pantoprazole now as you get it from the pharmacy, 1 pill per day. Sucralfate and Zofran are for after surgery as needed. 3. Bowel prep: please do 7 packets ?of Miralax mixing each one with a an 8oz glass of water, crystal light, gatorade zero, or propel ?on 04/28/23 and the same amount on 04/29/23. Continue the protein shakes during? the bowel prep. 4. Needs to purchase 1oz medicine cups . 5. Needs to purchase Children's liquid Tylenol for postop pain control. 6. Avoid aspirin, motrin, Advil, Aleve, Ibuprofen, Naproxyn. Tylenol is OK. 7. She needs to purchase the Celebrate 4:1 protein shakes from the hospital's gift shop. 8. Will do basic preop blood work-up any day between 04/25/23 or Saturday04/26/23 fasting for 12 hours and is scheduled to see the Anesthesiologist prior to the day of surgery. 9. Importance of adherence to postop folllow-up and recommendations was underscored and she understands that. 10. Stop food and bars as of today 04/24/23 and do 4 Slimfast premade protein shakes per day at 10am-12pm, 2pm-4pm, 6pm-8pm and 10pm-12am 11. No soups, broths or V8 12. The patient's?medical?history has been reviewed and they are considered low risk for post op DVT and therefore DVT prophylaxis is not considered necessary. Travel after surgery was reviewed. The patient has not disclosed any travel plans during the first 30 days after surgery and they have been advised that within the first 30 days after surgery any bus, plane, train or car travel over 2 hours in duration is contraindicated due to the possibility of developing blood clots from immobility. Any travel, needs to include periods of ambulation of 10 minutes in duration every 2 hours.? Patient was instructed to discuss any plans for travel during this period with their bariatric surgeon.? 13. Please take at the day of surgery the following medications: 14. Stop any control pills and don't use them for one month after surgery 15. Absolutely no smoking or vaping, or marijuana until the surgery and for at least the first 4 weeks. Only nicotine patches are allowed. 16. Send me weight measurements today and then on Saturday04/30/23 at the day of surgery before you go to the hospital. 17. Avoid any steroids by mouth for any reason. Let me know if someone prescribes them to you (2) BMI 37.0-37.9, adult: Code(s): Z68.37 - Body mass index [BMI] 37.0-37.9, adult Orders: Orders Comprehensive Met. Panel Today E66.9 - Obesity, unspecified, Z68.37 - Body mass index [BMI] 37.0-37.9, adult TSH reflex Free T4 Today E66.9 - Obesity, unspecified, Z68.37 - Body mass index [BMI] 37.0-37.9, adult Prothrombin Time INR Today E66.9 - Obesity, unspecified, Z68.37 - Body mass index [BMI] 37.0-37.9, adult Type and Screen Today E66.9 - Obesity, unspecified, Z68.37 - Body mass index [BMI] 37.0-37.9, adult Partial Thromboplastin Time Today E66.9 - Obesity, unspecified, Z68.37 - Body mass index [BMI] 37.0-37.9, adult Insulin Today E66.9 - Obesity, unspecified, Z68.37 - Body mass index [BMI] 37.0-37.9, adult Hemoglobin A1c Today E66.9 - Obesity, unspecified, Z68.37 - Body mass index [BMI] 37.0-37.9, adult Lipid Panel Today E66.9 - Obesity, unspecified, Z68.37 - Body mass index [BMI] 37.0-37.9, adult C Reactive Protein Today E66.9 - Obesity, unspecified, Z68.37 - Body mass index [BMI] 37.0-37.9, adult Complete Blood Count Auto Diff Today E66.9 - Obesity, unspecified, Z68.37 - Body mass index [BMI] 37.0-37.9, adult Medications: New pantoprazole 40 mg PO DAILY 30 tabs 2RF K21.9 - Gastro-esophageal reflux disease without esophagitis sucralfate 10 mL PO BID 400 mL 2RF K21.9 - Gastro-esophageal reflux disease without esophagitis ondansetron Only take one every 12 hours as needed if you have nausea 4 mg PO Q12H 20 tabs 0RF nausea and vomiting R11.0 - Nausea polyethylene glycol 3350 (Miralax) Mix each packet with 8oz of water, Crystal light, or Gatorade zero, or Propel and do 7 packets on 04/28/23 and another 7 packets on 04/29/23 17 grams PO DAILY 14 ea 0RF Z01.818 - Encounter for other preprocedural examination Telehealth Telehealth Location of provider rendering services: practice address Location of patient: address on file Patient Identification confirmed using: Name, : Yes Telehealth method: voice only Patient verbally consented to treatment: Yes Patient verbally consented to billing insurance company: Yes Patient informed of any privacy concerns related to visit: Yes Minutes spent on Phone/Video with Pt.: 30 Coding Level of Care Code Tele Est Pt Level 4 (10891) Diagnoses Obesity E66.9 BMI 37.0-37.9, adult Z68.37 Time Spent (min) 30
[2023-04-24 11:09] VITALS: BMI 36.9
== END 2023-04-24 11:35 | disposition home or self-care (01) ==
LOC: HO.HBS 09:27
PROVIDERS: PCP Internal Medicine; Visit Provider Surgery
DX: E66.9 Obesity, unspecified (principal); Z68.37 Body mass index [BMI] 37.0-37.9, adult
CPT/HCPCS: 99214

== ENCOUNTER → 2023-04-24 09:27 | Outpatient (BNVA) | payer MEDICAID, SELFPAY | PROVIDERS: PCP Internal Medicine; Visit Provider Surgery ==

== ENCOUNTER 2023-04-30 11:37 | Inpatient (IN) | payer MEDICAID, SELFPAY ==
[2023-04-25 13:45] LABS: MANUAL DIFF FLAG NO
[2023-04-25 14:10] LABS: Basophils Percent Auto 0.3 % (0-2); Eosinophils Absolute Auto 0.1 X10*3/uL (0.0-0.4); Eosinophils Percent Auto 0.8 % (0-4); Hematocrit 40.8 % (37.0-47.0); Hemoglobin 13.6 g/dl (12.0-16.0); Imm Gran Abs Auto 0.01 X10*3/uL (0.00-0.03); Imm Gran Pct Auto 0.2 % (0.0-0.4); Lymphocytes Absolute Auto 1.8 X10*3/uL (1.2-4.9); Lymphocytes Percent Auto 30.6 % (20-40); Mean Corpuscular HGB Conc 33.3 g/dl (31.0-35.0); Mean Corpuscular Hemoglobin 30.3 pg (27.0-33.0); Mean Corpuscular Volume 90.9 fL (80.0-98.0); Monocytes Absolute Auto 0.4 X10*3/uL (0.1-1.2); Monocytes Percent Auto 7.2 % (2-11); Neutrophils Absolute Auto 3.7 x10*3/uL (2.0-8.3); Neutrophils Percent Auto 60.9 % (45-73); Platelet Count 273 X10*3/uL (160-400); Red Blood Count 4.49 X10*6/uL (4.20-5.50); Red Cell Distribution Width 13.7 % (11.0-16.0)
[2023-04-25 14:21] LABS: INTERNATIONAL NORM RATIO 1.1 (0.9-1.1); Prothrombin Time 13.1 SEC (11.1-13.3)
[2023-04-25 14:23] LABS: Partial Thromboplastin Time 31.9 SEC (26.0-36.4)
[2023-04-25 14:40] LABS: Estimated Average Glucose 103 mg/dL; Hemoglobin A1c % 5.2 % (<6.0)
[2023-04-25 15:17] LABS: Alanine Aminotransferase 13 U/L (0-31); Albumin Level 3.9 g/dL (3.5-5.0); Alkaline Phosphatase 63 U/L (39-117); Anion Gap 10 (12-20); Aspartate Amino Transferase 14 U/L (5-31); Bilirubin Total 0.7 mg/dL (0.0-1.0); Blood Urea Nitrogen 10 mg/dL (9-16); Calcium 8.9 mg/dL (8.4-10.2); Carbon Dioxide 26 mmol/L (22-29); Chloride 108 mmol/L (96-108); Cholesterol 139 mg/dL (<200); Estimated Glomerular Filt Rate > 60; Glucose Random 93 mg/dL (60-115); HDL Cholesterol 45 mg/dL (>40); LDL Cholesterol Calculated 83 mg/dL (<100); Potassium 3.2 mmol/L (3.3-5.1); Sodium 141 mmol/L (135-145); Total Protein 7.2 g/dL (6.5-8.0); Triglycerides 58 mg/dL (<150)
[2023-04-25 15:35] LABS: Insulin 5 uU/mL (2-29); TSH reflex Free T4 3.12 uIU/mL (0.32-4.0)
[2023-04-26 13:13] VITALS: BMI 36.6
--- NOTE | 2023-04-27 14:34 | MHC.SHP ---
Pre-Procedural Eval Section A Date of Service: 04/27/23 The patient is an INPATIENT: Yes The History & Physical has been completed within 30 days and I have reviewed it.: Yes Section B Chief Complaint: Obesity, unspecified Relevant Family History (Specify if Yes): Yes Relevant Social History: None Present Medications: None Medical History: No relevant PMH History of Previous Operations: No relevant previous surgery Allergies: Allergies Allergy/AdvReac Type Severity Reaction Status Date / Time ibuprofen [From MOTRIN] Allergy Mild HIVES Verified 04/24/23 10:53 Ibuprofen (800 MG) Allergy Unknown RASH Uncoded 04/24/23 10:53 Review of Systems Sugical H&P ROS: Negative: Constitution, Cardiovascular, Respiratory, Neurological, Psychiatric, Hem-Onc, Allergic/Immunologic, Gastrointestinal, Genitourinary, Musculoskeletal, Integumentary, Endocrine and Eyes/Ears/Nose/Throat Exam Surgical H&P Exam: Normal: HEENT, Normal: Heart, Normal: Lungs, Normal: Extremities, Normal: Abdomen, Normal: Skin and Normal: Neurological Plan Diagnosis/Plan: Unchanged I have reviewed the history and physical and performed a pertinent physical examination on my patient. No changes have occurred unless specified. Time Spent With Patient Time: Total time managing care of this patient today ____ minutes.
--- NOTE | 2023-04-29 09:50 | P.CONAN_ITS ---
Documented by User: Candice Rivas NP 04/29/23 09:52 HPI - Anesthesia Eval Consult details Narrative: 27yo F for Gastrectomy Sleeve, EGD, possible diaphragmatic hernia, possible ventral hernia, possible open PMFSH Active Problems Active Problems: All Active Problems (Updated 04/18/23 @ 15:02 by Elena Wolfe LM) BMI 37.0-37.9, adult (Acute) BMI 38.0-38.9,adult (Acute) Obesity (Acute) Knee pain (Acute) Back pain (Acute) Anxiety (Acute) Depression (Acute) Morbid obesity (Acute) Hypothyroidism (Acute) Asthma (Acute) Past Medical History Medical History (Updated 04/18/23 @ 15:02 by FRANK Avilez) Knee pain Back pain Anxiety Depression Morbid obesity Hypothyroidism Asthma Family History Family History Mother Hypertension High cholesterol Father Kidney failure Diabetes Hypertension High cholesterol Son Asthma Daughter Asthma Surgical History Surgical History (Updated 04/26/23 @ 13:13 by Marga Soto RN) Hx of tubal ligation Hx of bilateral salpingectomy Social History Social History Are you a primary career development coordinator/teacher to a significant other at home: No Do you presently have visiting nurse or other home services: No Alcohol intake: current Alcohol intake frequency: does not drink Patient Tobacco Use Status: Never used Tobacco Use of substances other than those prescribed or required for medical reasons: No Have you been hit, kicked, punched, or otherwise hurt by someone within the past year? If so, by whom?: No Are you DNR?: No Advance Directives: No Advance Directives Information Provided: No Advance Directives on File: No Recently lost weight without trying: No Eating poorly because of decreased appetite: No Nutrition Risks: No Nutritional Risk Patient : No : No Poor oral hygiene: No Meds Allergies Allergy/AdvReac Type Severity Reaction Status Date / Time ibuprofen [From MOTRIN] Allergy Mild HIVES Verified 04/24/23 10:53 Ibuprofen (800 MG) Allergy Unknown RASH Uncoded 04/24/23 10:53 Exam Exam Date and Time: April 29, 2023 0950 Height,Weight and Vital Signs: Height 5 ft 2 in Weight 90.718 kg Pertinent Lab Results Pertinent Lab Results: Laboratory Tests 04/25/23 04/25/23 13:32 13:44 WBC 6.0 RBC 4.49 Hgb 13.6 Hct 40.8 MCV 90.9 MCH 30.3 MCHC 33.3 RDW 13.7 Plt Count 273 MPV 11.0 Immature Gran % (Auto) 0.2 Neut % (Auto) 60.9 Lymph % (Auto) 30.6 [place] % (Auto) 7.2 Eos % (Auto) 0.8 Baso % (Auto) 0.3 Lymph # (Auto) 1.8 [place] # (Auto) 0.4 Eos # (Auto) 0.1 Baso # (Auto) 0.0 Abs Immat Gran (auto) 0.01 Absolute Neuts (auto) 3.7 Absolute Nucleated RBC 0.000 Nucleated RBC % (auto) 0.0 PT 13.1 INR 1.1 APTT 31.9 Sodium 141 Potassium 3.2 L Chloride 108 Carbon Dioxide 26 Anion Gap 10 L BUN 10 Creatinine 0.74 Estim Creat Clear Calc TNP Estimated GFR > 60 Random Glucose 93 Estimat Average Glucose 103 Hemoglobin A1c % 5.2 Insulin Level 5 Calcium 8.9 Total Bilirubin 0.7 AST 14 ALT 13 Alkaline Phosphatase 63 C-Reactive Protein 0.10 Total Protein 7.2 Albumin 3.9 Triglycerides 58 Cholesterol 139 LDL Cholesterol, Calc 83 HDL Cholesterol 45 TSH 3.12 Blood Type Cancelled Antibody Screen Cancelled Narrative Narrative: EKG 01/2023 Vent. Rate : 072 BPM Atrial Rate : 072 BPM P-R Int : 136 ms QRS Dur : 082 ms QT Int : 398 ms P-R-T Axes : 040 045 028 degrees QTc Int : 435 ms Normal sinus rhythm Normal ECG No previous ECGs available Assessment and Plan Assessment Anesthesia Assessment: Chart Reviewed Documented by User: Nellie Maguire MD 04/30/23 13:19 [facility] Past Medical History Medical History (Updated 04/18/23 @ 15:02 by Elena Wolfe [facility]) Knee pain Back pain Anxiety Depression Morbid obesity Hypothyroidism Asthma Family History Family History Mother Hypertension High cholesterol Father Kidney failure Diabetes Hypertension High cholesterol Son Asthma Daughter Asthma Family history of problems with anesthesia: No Surgical History Surgical History (Updated 04/26/23 @ 13:13 by Marga Soto RN) Hx of tubal ligation Hx of bilateral salpingectomy History of Problems with Anesthesia: No Social History Social History Are you a primary career development coordinator/teacher to a significant other at home: No Do you presently have visiting nurse or other home services: No Alcohol intake: current Alcohol intake frequency: does not drink Patient Tobacco Use Status: Never used Tobacco Use of substances other than those prescribed or required for medical reasons: No Have you been hit, kicked, punched, or otherwise hurt by someone within the past year? If so, by whom?: No Are you DNR?: No Advance Directives: No Advance Directives Information Provided: No Advance Directives on File: No Recently lost weight without trying: No Eating poorly because of decreased appetite: No Nutrition Risks: No Nutritional Risk Patient : No : No Poor oral hygiene: No Meds Allergies Allergy/AdvReac Type Severity Reaction Status Date / Time ibuprofen [From MOTRIN] Allergy Mild HIVES Verified 04/24/23 10:53 Ibuprofen (800 MG) Allergy Unknown RASH Uncoded 04/24/23 10:53 Exam Airway Mallampati Class: III TM Dist: >3cm Neck ROM: Full Lungs: clear Assessment and Plan Assessment Anesthesia Assessment: Anesthesia Plan Discussed Final Anesthetic Review Family History of Problems with Anesthesia: No History of Problems with Anesthesia: No NPO: Yes ASA Class: III Final Preanesthetic Review: No Changes in Pt Med Stat, Meds/Allgs Chart Reviewed, Consent Obtained/Reviewed and Anes Risks/Benef Reviewed Patient Risk: Intermediate Procedure Risk: Intermediate Anesthetic Plan Anesthetic Plan: GA Disposition: Standard PACU
[2023-04-30] VITALS (10 sets, daily range): BP systolic 131–159; BP diastolic 66–91; PULSE 67–100; RESP 15–25; TEMP 36.2–36.6; O2SAT 97–100
--- NOTE | 2023-04-30 12:02 | PHA.MEDREC ---
Pharmacy Consult ? Medication Reconciliation Pharmacy has completed the medication reconciliation. Reviewed med rec done by nursing
[2023-04-30] MEDS: Aprepitant 32 MG/4.4 ML VIAL IVPUSH (12:32)
[2023-04-30] MEDS: Lactated Ringers 1,000 ML 999 ML IV (12:32)
--- NOTE | 2023-04-30 13:10 | PM.OP ---
Brief Operative Note Date of Service: 04/30/23 Pre-op diagnosis: Severe obesity with comorbidities (see below) Post-op diagnosis: same (& congenital abdominal adhesions) Procedure: INITIAL PATIENT BMI ON PRESENTATION AT OUR OFFICE: 41.6 kg/m2 LAST BMI BEFORE SURGERY: 37.1 kg/m2 COMORBIDITIES: asthma, hypothyroidism, back pain, depression ?The patient presented to the Weight Management Program with significant obesity that was negatively impacting the patient's comorbidities as listed above.? The program is a phased program with a special focus on preoperative medical weight management to promote substantial weight loss and prepare the patients for the second phase of the program: bariatric surgery. The patient participated in an intensive weekly lifestyle ?intervention and exercise program during which the patient ?has lost between the initial office visit and the last preoperative visit 25.5lbs, or 11.21% of initial actual body weight. It was deemed appropriate for the patient to now have bariatric surgery. In light of the current Covid-19 pandemic and the well documented strong association of obesity and increased risk of worse outcomes if infected with Covid-19 (REFERENCES:https://pubmed.ncbi.nlm.nih.gov/19163944/,?https://pubmed.ncbi.nlm.nih.gov/53385530/), any delay in undergoing bariatric surgery may lead to the patient's worsening health condition and increased?risk of more severe Covid-19 disease if infected. In addition a recent?study from [facility] published in [facility] on 08/07/2021 ([email or web address]) found that, among patients with obesity, substantial weight loss achieved with surgery was associated with improved outcomes of COVID-19 infection. The findings suggest that obesity can be a modifiable risk factor for the severity of COVID-19 infection. In addition, the patient met the BMI-criteria for bariatric surgery based on the BMI on initial presentation. The patient should not be penalized for achieving such weight loss because ?it is not sustainable long-term without surgical intervention and it was achieved in preparation for bariatric surgery ?under my direction and based on my published research ([email or web address] and?[email or web address].soard.org/article/[email or web address])90140-X/pdf) ?that a 10% preoperative weight loss improves long-term weight loss after surgery and reduces perioperative complications.? Insurance carriers such as [facility] have endorsed my recommendations ?and have included in their policies criteria to include a 10% preoperative weight loss requirement. PROCEDURE: Esophago-gastroscopy, laparoscopic lysis of adhesions, laparoscopic sleeve gastrectomy and laparossopic gastropexy INDICATIONS: This is a 27 year-old female who was electively scheduled for laparoscopic, possibly open sleeve gastrectomy. The risks and complications of the procedure were discussed with the patient in advance, particularly the possibility of ; pulmonary embolism; staple line leak; bleeding; GERD; cardiac, pulmonary, or renal complications; as well as long-term problems such as insufficient weight loss, vitamin deficiency, strictures, or ulcers. The patient understood all the risks, and was in agreement to proceed with surgery. DESCRIPTION OF PROCEDURE: After informed consent was obtained from the patient, the patient was given preoperative antibiotics, and was transferred to the operating room. After successful induction of general anesthesia, pneumatic compression devices were placed on both lower extremities. An upper endoscopy was performed next. The oropharynx and esophagus appeared to be within normal limits. There was no diaphragmatic hernia present of with the findings of the preoperative upper GI. The stomach was entered. Then after all fluid and air were suctioned and the stomach was fully decompressed, the scope was withdrawn and secured in the mid esophagus. The patient was then prepped and draped in the usual sterile manner, and abdominal access was established at the right upper quadrant with the Melody technique. A 12 mm blunt port was inserted, and the abdomen was insufflated with CO2 to a pressure of 15 mmHg. Under direct visualization, additional ports were placed, specifically two 5 mm Versi-step ports to the left upper quadrant, and a 5 mm Versi-Step port to the right upper quadrant. 1% lidocaine plain was used to infiltrate all port sites as well as all fascia defects. Following that, the patient was placed in a steep reverse Trendelenburg position. An additional 5 mm port was placed to the right flank for the Mediflex retractor that was used to retract the left lobe of the liver. The gastro-esophageal fat pad was opened with the ultrasonic device (Thunderbeat, Olympus) and the anterior esophagus and hiatus were exposed. The angle of His was opened with the ultrasonic device the fundus of the stomach from any diaphragmatic and splenic attachments. I then opened the gastrocolic ligament between the transverse colon and the greater curvature of the stomach with the ultrasonic device to enter the lesser sac and facilitate the ligation of the short gastric vessels. I started at a mid-point along the greater curvature and using the Thunderbeat, all short gastric vessels were divided all the way to the angle of His until the left benito was completely dissected at its entirety. I then divided the gastro-colic ligament distally to a distance of about 3-4 cm proximal to the pylorus. There were extensive congenital adhesions between the pancreas and posterior gastric wall. Those were lysed completely with the ultrasonic device. Adhesiolysis took approximately 45 min to complete. The stomach was then divided transversely with two Endo BEBE-45 purple, and four BEBE-60 articulating purple loads using the SIGNIA stapler and loads. Every effort was made that the gastric sleeve had a tubular shape and an even caliber throughout. Once the sleeve resection was completed, the staple line of the gastric sleeve was reinforced with Hemoclips. The resected stomach was retrieved without difficulty from the Melody port. A gastropexy was then performed in order to prevent postoperative GERD and partial gastric volvulus. Several interrupted 2.0 Surgidac sutures were placed between the sleeve's staple line and the previously divided greater omentum and gastro-colic ligament using the Endo-Stitch device. ?An upper endoscopy was performed. There was no narrowing at the GE junction. The scope was easily advanced all the way to the pylorus which was clearly visualized. There was no narrowing anywhere and the sleeve's caliber was even throughout. The sleeve's staple line was inspected and there was no evidence of ischemia, bleeding or dehiscence. At that point the gastroscope was withdrawn from the patient?s mouth while we were decompressing the bowel and the stomach from any remaining air. I looked into the lesser sac to see how the sleeve was situating and it was situating well. There was no bleeding from the staple line, spleen, or short gastric vessels. The Mediflex retractor was removed, and the undersurface of the liver was inspected and there was no bleeding. The patient was placed in supine position. I closed the fascial defect of the 12 mm port site with a figure of eight #1 Polysorb suture. Then 30cc Ropivacaine plain with 10 mg of Dexamethasone were used to infiltrate the fascial closure as well as all skin incisions. A total of 6ml Zynrelel was applied in the Vergara wound. At this point, the abdomen was deflated, all ports were removed under direct vision, and no bleeding was noted from any of the port sites. The skin incisions were irrigated with saline and were closed with 4-0 absorbable monofilament sutures. Steri-Strips and OpSites were used to cover all incisions. The patient was extubated and was transferred in stable condition to the recovery room for further care. I was present and performed all lilly parts of the procedure. Ms. Vazson was the bacteriology research assistant. There were no residents to assist with this case. Lc Tapia MD, PhD, FACS Surgeon: Javy Tapia MD Anesthesia: GETA, local and other (TAP block and 6ml Zynrelef) Was an Physician Non Invasive Cardiologist used for this Procedure?: No Physician Non Invasive Cardiologist: Lavonne Ayala Estimated blood loss (mL): 10 IV fluids (mL): 2,100 Urine output (mL): 0 (No Brennan to record output) Pathology: other (Stomach) Condition: stable Disposition: PACU
--- NOTE | 2023-04-30 13:13 | P.PNGS_ITS ---
Subjective Subjective Date of Service: 05/01/23 Interval history: Feels well. Mild incisional pain. She is tolerating phase 1 bariatric diet Physical Exam 2 Vital Signs: Vital Signs: Last Vital Signs Temp 97.5 F 04/30/23 12:30 Pulse 67 04/30/23 12:30 Resp 16 04/30/23 12:30 BP 131/66 04/30/23 12:30 Pulse Ox 99 04/30/23 12:30 O2 Del Method Room Air 04/30/23 12:30 BMI result Body Mass Index 36.6 GI: Inspection: Yes normal to inspection, Yes incision (clean, dry and intact) and Yes obesity Palpation (GI): Soft to palpation Extrem: Right lower extremity: normal to inspection (no calf tenderness) L eft lower extremity: normal to inspection (no calf tenderness) Objective Data Active Medications Albuterol Sulfate (Albuterol Sulfate (0.083%) 2.5 Mg/3 Ml Vial.Neb) 2.5 mg INHALE ONCE PRN PRN Reason: Shortness of Breath/Wheezing Lactated Ringer's (Lr) 1,000 mls @ 100 mls/hr IVCONT .Q10H LUANN Lactated Ringer's (Lr) 1,000 mls @ 999 mls/hr IV .Q1H1M LUANN Stop: 04/30/23 13:45 Last Admin: 04/30/23 12:32 Dose: 999 mls/hr Documented By: SUN Labs 05/01/23 06:08 05/01/23 06:08 Labs: Laboratory Results - last 24 hr 04/30/23 12:08 Blood Type O Positive Antibody Screen NEGATIVE Procedures Date of Service Date of Service: 05/01/23 Progress Note: A&P Assessment and plan (1) Anxiety: Status: Acute (2) Hypothyroidism: Status: Acute (3) Asthma: Status: Acute (4) S/P laparoscopic sleeve gastrectomy: Status: Acute Assessment and Plan: s/p laparoscopic sleeve gastrectomy, lysis of adhesions and gastropexy Doing well Will check am labs and if OK the patient will be discharged home (5) Morbid obesity: Status: Acute (6) Congenital intra-abdominal adhesions: Status: Acute Time Spent With Patient Time: Total time managing care of this patient today ____ minutes. Quality Stroke Does the patient have a stroke diagnosis?: No VTE Prior VTE?: No VTE Risk Level:: Surgical - moderate VTE Device Contraindication: N/A - Device Ordered VTE Drug Contraindication: Treatment Not Indicated
[2023-04-30] MEDS: ceFAZolin Sodium/Dextrose,Iso 2 GM/50 ML PIGGYBACK IV ×2 (13:44→19:36)
[2023-04-30] MEDS: Acetaminophen 1,000 MG/100 ML PIGGYBACK 400 MG IV ×2 (15:30→17:48)
--- NOTE | 2023-04-30 16:00 | PM.DS ---
DS: Providers Provider Date of Service: 05/01/23 Date of admission: 04/30/23 11:37 Primary care physician: Pepper Jett MD DS: Diagnosis Discharge Diagnosis (1) Obesity: Status: Acute (2) BMI 37.0-37.9, adult: Status: Acute (3) Knee pain: Status: Acute (4) Back pain: Status: Acute (5) Anxiety: Status: Acute (6) Hypothyroidism: Status: Acute (7) Asthma: Status: Acute DS: Summary Hospital Course Hospital Course: ADMITTING DIAGNOSIS: morbid obesity, anxiety,m asthma DISCHARGE DIAGNOSIS: same, s/p laparoscopic sleeve gastrectomy PAST SURGICAL HISTORY: bilateral tubal ligation PROCEDURE: upper endoscopy, laparoscopic sleeve gastrectomy DISCHARGE SUMMARY: History of Present Illness: The patient is a 27 year-old woman with a BMI of 42.3 kg/m2 and associated co-morbidities as described above. The patient had extensive work-up, lost 25.5 lbs preoperatively and was electively scheduled for laparoscopic, possible open sleeve gastrectomy and gastropexy. Risks and complications of the surgery were discussed with the patient in advance, particularly the possibility of , pulmonary embolism, anastomotic leak, bleeding, bowel injury, GERD, cardiac, renal or pulmonary complications. The patient understood all the risks and was in agreement with the surgical plan. Hospital Course: The patient underwent an uneventful laparoscopic sleeve gastrectomy with gastropexy on the day of admission. Postoperatively, the patient was transferred to the surgical floor. The patient received IV Acetaminophen and IV dilaudid for pain control. Patient was started on bariatric phase 1 diet POD #0. On postoperative day one, the patient was feeling well without nausea, vomiting, fevers, or tachycardia. The patient had some mild incisional pain and the abdomen was soft. On the morning of postoperative day one, the patient was continued on 1 ounce of water or ice every half hour. During the day, the patient did fairly well, having some incisional pain, but able to ambulate adequately and to tolerate liquids well. Since the patient is doing well, we decided that the patient was ready to be discharged. The patient was given instructions to follow-up with me next week and to call my office for any fever over 101, persistent abdominal pain, nausea, vomiting, GERD, symptoms of DVT such as calf tenderness, or leg swelling, or pulmonary embolism such as chest pain or shortness of breath. The patient was also instructed to drink 40-60 ounces of liquids per day using the 1-ounce cups. The patient had been given prescriptions for Tylenol for pain, Zofran prn for nausea, and pantoprazole and carafate previously. The patient was encouraged to ambulate and use the incentive spirometer. The patient was allowed to shower, but no baths, and encouraged to stay active at home. All of these instructions were given to the patient personally. All questions were answered and the patient understood all instructions, the instructions were also given to the patient in print. Time Spent with Patient Time attestation: Total time managing care of this patient today ____ minutes. Discharge coordination time: Less than 30 minutes Quality: Safe Use of Opioids Does Pt have an Active Cancer Diagnosis on the Problem List?: No Quality: Stroke Does the patient have a stroke diagnosis?: No Physical Exam Vital Signs: Vital Signs: Last Vital Signs Temp 97.5 F 04/30/23 12:30 Pulse 67 04/30/23 12:30 Resp 16 04/30/23 12:30 BP 131/66 04/30/23 12:30 Pulse Ox 99 04/30/23 12:30 O2 Del Method Room Air 04/30/23 12:30 BMI result Body Mass Index 36.6 DS: Data Data Completed and Pending Pending studies at discharge: Pending at discharge 04/30/23 14:55 Surgical [PTH] Routine Labs on day of discharge: Laboratory Results - last 24 hr 04/30/23 12:08 Blood Type O Positive Antibody Screen NEGATIVE Discharge Plan Discharge Anticipated Discharge Date/Time: 05/01/23 10:57 Patient Disposition: Home, Self-Care Discharge Diagnosis: s/p sleeve gastrectomy Referrals: Pepper Jett MD [Primary Care Provider] - 1 Week Discharge Medications: Continued pantoprazole 40 mg tablet,delayed release (DR/EC) 40 mg PO DAILY Qty: 30 2RF sucralfate 100 mg/mL suspension 10 ml PO BID Qty: 400 2RF ondansetron 4 mg tablet,disintegrating 4 mg PO Q12H Qty: 20 0RF Rx Instructions: Only take one every 12 hours as needed if you have nausea Discontinued vitamin A palmitate 3,000 mcg (10,000 unit) capsule 10,000 unit PO DAILY Qty: 90 3RF thiamine HCl (vitamin B1) 100 mg tablet 100 mg PO DAILY Qty: 90 3RF cholecalciferol (vitamin D3) 125 mcg (5,000 unit) capsule 125 mcg PO DAILY Qty: 90 3RF polyethylene glycol 3350 [Miralax] 17 gram powder in packet 17 g PO DAILY Qty: 14 0RF Rx Instructions: Mix each packet with 8oz of water, Crystal light, or Gatorade zero, or Propel and do 7 packets on 04/28/23 and another 7 packets on 04/29/23 Discharge Orders: Discharge Order (Routine); Ordered 05/01/23 Ordered By: Javy Tapia Activity on Discharge: No heavy lifting Stand Alone Forms: Patient Portal Discharge page Care Plan Goals: weight loss Health Concerns: obesity Plan of Treatment: No tub baths, sex or returning to work until discussed at first post op appointment. No exercise, alcohol, tobacco or illegal drug use. Continue to use incentive spirometer hourly while awake. Walk in home for 5- 10 minutes every 2 hours during the first week. Continue phase 1 diet today and start phase 2 diet tomorrow morning. Follow all instructions in the bariatric handbook and call with any questions. 1. Please call your doctor or come back to the emergency room should any new symptoms arise. 2. You will receive a courtesy call from [facility] 24-48 hours after discharge. 3. Activity: abstain from alcohol, practice limited stair climbing, no bending, no driving, no exercise, no illicit substances, no lifting, no sex, no tub bath, no work. 4. Diet: continue as discussed with bariatric team.. 5. Dressing Change/Wound Care: Do not change or remove surgical dressings unless they are wet or soiled. 6. Call your doctor if: - Your temperature exceeds 101.5 F - You experience excessive pain or swelling - You have an unexpected reaction to medication - You have excessive bleeding - You experience continued vomiting/nausea - Your incision begins to separate - Your incision shows signs of infection such as increased redness, swelling, excessive pain, heat, or drainage (light blood or clear fluid is normal) 7. General instructions: No lifting greater than 5 lbs for 1 week and not more than 20lbs the next 3?weeks. No driving until seen at the office in 5-7 days after surgery. If you do not move your bowels in the next 2 days, please tell?Dr. Tapia. Please walk around your home every hour or two to prevent blood clots from forming in your legs. You do not need to wake from sleeping to walk. Please sleep in a bed or couch to prevent kinking at the hips and knees. Please take your incentive spirometer (your lung facilities flight check pilot) home with you and use it for the next few days to prevent pneumonia. You may shower, no hot tubs, baths or swimming pools.?Please follow the post op diet instructions you are?given by Dr Nu augustin? and text me daily at 5-6pm for an update.?If you have any issues or concerns or questions please communicate this to him via text.? The Celebrate shakes have all of the bariatric vitamins you need if you consume these shakes. If you are drinking other protein shakes, you will need to purchase the Celebrate multivitamins and calcium that are available in the hospital gift shop on the first floor of the [facility].??Do not take anything without first discussing with Dr Tapia. Please make sure you are consuming at least 40 ounces of fluids per day starting the?day AFTER your discharge from the hospital. Always drink 1-2 ml per minute using the 5ml?syringe. If you drink faster you may experience?bloating,?gas pain, burping, nausea or heartburn. In that case please slow down your pace and use the syringe to?understand better the?proper?pace and volume of drinking. Do not hesitate to contact the office with any questions at . The patient's medical history has been reviewed and they are considered low risk for post op DVT and therefore DVT prophylaxis is not considered necessary. Travel after surgery was reviewed. The patient has not disclosed any travel plans during the first 30 days after surgery and they have been advised that within the first 30 days after surgery any bus, plane, train or car travel over 2 hours in duration is contraindicated due to the possibility of developing blood clots from immobility. Any travel, needs to include periods of ambulation of 10 minutes in duration every 2 hours. The patient was instructed to discuss any plans for travel during this period with their bariatric surgeon. Assessment: stable, post op sleeve gstrectomy
[2023-04-30 16:53] LABS: Hematocrit 43.1 % (37.0-47.0); Hemoglobin 13.7 g/dl (12.0-16.0)
[2023-04-30 17:14] LABS: Anion Gap 16 (12-20); Blood Urea Nitrogen 9 mg/dL (9-16); Calcium 8.8 mg/dL (8.4-10.2); Carbon Dioxide 23 mmol/L (22-29); Chloride 104 mmol/L (96-108); Estimated Glomerular Filt Rate > 60; Glucose Random 115 mg/dL (60-115); Potassium 3.5 mmol/L (3.3-5.1); Sodium 139 mmol/L (135-145)
[2023-04-30] MEDS: Lactated Ringers 1,000 ML 100 ML IVCONT (17:18)
[2023-04-30] MEDS: HYDROmorphone HCl 0.5 MG/0.5 ML SYRINGE 0.25 MG IVPUSH (19:58)
[2023-04-30] MEDS: Famotidine/PF 20 MG/2 ML VIAL IVPUSH (20:00)
[2023-05-01] MEDS: Acetaminophen 1,000 MG/100 ML PIGGYBACK 400 MG IV ×2 (01:17→09:01)
[2023-05-01 01:21] VITALS: BP 144/79; PULSE 93; RESP 18; TEMP 36.8; O2SAT 95
[2023-05-01] MEDS: Lactated Ringers 1,000 ML 100 ML IVCONT (03:15)
[2023-05-01 03:31] VITALS: BP 132/69; PULSE 65; RESP 16; O2SAT 95
[2023-05-01 03:32] VITALS: RESP 16
[2023-05-01] MEDS: HYDROmorphone HCl 0.5 MG/0.5 ML SYRINGE 0.25 MG IVPUSH (03:32)
[2023-05-01 06:30] LABS: Basophils Percent Auto 0.1 % (0-2); Hemoglobin 13.4 g/dl (12.0-16.0); Imm Gran Abs Auto 0.06 X10*3/uL (0.00-0.03); Imm Gran Pct Auto 0.4 % (0.0-0.4); Lymphocytes Absolute Auto 0.6 X10*3/uL (1.2-4.9); Lymphocytes Percent Auto 4.6 % (20-40); MANUAL DIFF FLAG SCAN; Mean Corpuscular HGB Conc 33.5 g/dl (31.0-35.0); Mean Corpuscular Hemoglobin 30.5 pg (27.0-33.0); Mean Corpuscular Volume 90.9 fL (80.0-98.0); Mean Platelet Volume 10.9 fL (9.4-12.3); Monocytes Absolute Auto 0.1 X10*3/uL (0.1-1.2); Monocytes Percent Auto 0.5 % (2-11); Neutrophils Absolute Auto 12.8 x10*3/uL (2.0-8.3); Neutrophils Percent Auto 94.4 % (45-73); Platelet Count 281 X10*3/uL (160-400); Red Cell Distribution Width 13.3 % (11.0-16.0); SCAN SMEAR FLAG 1; White Blood Count 13.6 X10*3/uL (4.8-10.8)
[2023-05-01 06:47] LABS: Anion Gap 16 (12-20); Blood Urea Nitrogen 7 mg/dL (9-16); Calcium 9.1 mg/dL (8.4-10.2); Carbon Dioxide 22 mmol/L (22-29); Chloride 103 mmol/L (96-108); Creatinine Clr Calc Pharmacy 127.1; Estimated Glomerular Filt Rate > 60; Glucose Random 117 mg/dL (60-115); Potassium 3.9 mmol/L (3.3-5.1); Sodium 137 mmol/L (135-145)
[2023-05-01] MEDS: Famotidine/PF 20 MG/2 ML VIAL IVPUSH (07:14)
[2023-05-01 07:15] VITALS: BP 129/77; PULSE 81; RESP 17; TEMP 36.6; O2SAT 96
[2023-05-01 08:35] LABS: SLIDE REVIEW VERIFIED
--- NOTE | 2023-05-01 09:21 | MHC.CM.PN ---
pt dcd home no skilled services needed pt has own transport home
--- NOTE | 2023-05-01 10:55 | HO.POSTANES ---
Post Anesthesia Evaluation Post Anesthesia Evaluation Date of Service: 05/01/23 Vital Signs: Vital Signs Temp Pulse Resp BP Pulse Ox O2 Del Method 05/01/23 07:15 97.9 F 81 17 129/77 96 Room Air 05/01/23 03:32 16 05/01/23 03:31 65 16 132/69 95 Room Air 05/01/23 01:21 98.3 F 93 18 144/79 H 95 Room Air Anesthesia: General Endotracheal-GETA Mental Status: Awake Pain Control: Satisfactory (mild incisional pain) Nausea/Vomiting: None Hydration: Adequate Anesthesia-Related Issues: No Anes. Related Issues
== END 2023-05-01 13:14 | disposition home or self-care (01) | DRG 403 ==
LOC: HO.SSSA 16:00 → HO.S3 16:15
PROVIDERS: Physician Assistant; Admitting Provider Surgery; PCP Internal Medicine; Visit Provider Surgery
PROC: 0DB64Z3 Excision of Stomach, Percutaneous Endoscopic Approach, Vertical (ICD-10-PCS; CPT 43845; principal; 2023-04-30 13:50)
DX: E66.01 Morbid (severe) obesity due to excess calories (principal); Q43.3 Congenital malformations of intestinal fixation; E03.9 Hypothyroidism, unspecified; F41.9 Anxiety disorder, unspecified; J45.909 Unspecified asthma, uncomplicated; M54.9 Dorsalgia, unspecified; F32.A Depression, unspecified; Z68.37 Body mass index [BMI] 37.0-37.9, adult; Z79.899 Other long term (current) drug therapy
CPT/HCPCS: 36415; 80048; 80053; 80061; 83036; 83525; 84443; 85014; 85018; 85025; 85610; 85730; 86140; 86850; 86900; 86901; 88305; 88307; 88342; A4649; C9088; C9145; J0131; J0690; J1100; J1170; J2250; J2405; J2795; J3010

== ENCOUNTER → 2023-04-30 11:37 | Outpatient (BNV) | payer MEDICAID, SELFPAY | PROVIDERS: Admitting Provider Surgery; PCP Internal Medicine; Visit Provider Surgery | DX: E66.9 Obesity, unspecified (principal); Z68.37 Body mass index [BMI] 37.0-37.9, adult; K66.0 Peritoneal adhesions (postprocedural) (postinfection) | CPT/HCPCS: 43659; 43775 ==

== ENCOUNTER 2023-05-07 13:08 | Outpatient (AMB) | payer MEDICAID, SELFPAY ==
--- NOTE | 2023-05-07 13:16 | MHC.OFFVISWM ---
Intake VS Expanded 05/07/23 13:49 Height 5 ft 2 in Weight 188 lb 6.4 oz BMI 34.5 BP 131/80 Blood Pressure Location Rt brachial Blood Pressure Position Sitting Respiratory Rate 16 Pulse 73 Pulse Source Pulse Oximeter Temp 97.6 F Temperature Source Temporal Artery Scan Pulse Oximetry 99 Oxygen Delivery Method Room Air Body Fat 73.6 Body Fat Percentage 39.1 Free Fat Mass 114.6 Muscle Mass 109.0 Visceral Mass 7.0 Water Mass 82.4 BMR 1,615 Intake Visit Reasons: (OV) 7 Days PO LSG 04/30/23 Allergies ibuprofen [From MOTRIN] Allergy (Mild, Verified 05/07/23 13:49) HIVES Ibuprofen (800 MG) Allergy (Unknown, Uncoded 05/07/23 13:49) RASH Medication List - Last Reconciled 05/07/23 by Lavonne Ayala PA-C ondansetron 4 mg PO Q12H pantoprazole 40 mg PO DAILY sucralfate 10 mL PO BID HPI HPI Comments History of Present Illness Details POD #7 s/p LSG on 04/30/[address] Herber HENRIQUEZ weight of 243 lbs, TBWL is 54.6 lbs or 22.5%. Be sure to text Dr Tapia your weight from your home scale exactly 1 week after surgery so he can adjust your meal plan. Continue meal plan until f/u instructions from Dr Herber Roger shower, no submersion in bath for another week Continue abdominal binder with activity and exercise for the next 2 weeks. Exercise prior to surgery was Cross Fit , etc..., may contnue walking for exercise now. No abdominal exercises for 6 weeks post operatively You will be emailed a link for the post op video for review Reminded of the pace of drinking, 2 mL per minute, 1 oz/15 min. PFSH Medical History (Updated 05/02/23 @ 00:03 by Glo Rodriguez) Knee pain Back pain Anxiety Depression Morbid obesity Hypothyroidism Asthma Surgical History Hx of tubal ligation Hx of bilateral salpingectomy Family History Mother Hypertension High cholesterol Father Kidney failure Diabetes Hypertension High cholesterol Son Asthma Daughter Asthma Social History Household Members: Family Housing: Apartment Are you a primary adult care provider to a significant other at home: No Do you presently have visiting nurse or other home services: No Alcohol intake: current Alcohol intake frequency: does not drink Patient Tobacco Use Status: Never used Tobacco service: No Physical Exam Vital Signs: Last Vital Signs Temp 97.6 F 05/07/23 13:49 Pulse 73 05/07/23 13:49 Resp 16 05/07/23 13:49 BP 131/80 05/07/23 13:49 Pulse Ox 99 05/07/23 13:49 Oxygen Delivery Method Room Air 05/07/23 13:49 BMI result Body Mass Index 34.5 Const General: cooperative, healthy appearing, comfortable and no acute distress GI Inspection: Yes incision (c/d/i with steri strips) Palpation (GI): Soft to palpation, nontender, no guarding, no hernias and no masses Assessment & Plan Assessment & Plan Patient Instructions: 7 d post op, dizzy with movement - will increase fluids and drink shake (11 oz ) over 2.5 hours. Topical diphenhydramine for itchy abd - cotton shirt under binder. Continue present plan and text Dr Nu zamorano. Coding Level of Care Code Global (37051)
[2023-05-07 13:49] VITALS: BP 131/80; PULSE 73; RESP 16; TEMP 36.4; O2SAT 99; BMI 34.5
== END 2023-05-07 14:46 | disposition home or self-care (01) ==
PROVIDERS: PCP Internal Medicine; Visit Provider Physician Assistant
DX: Z48.89 Encounter for other specified surgical aftercare (principal)
CPT/HCPCS: 99024

== ENCOUNTER → 2023-05-07 13:08 | Outpatient (BNVA) | payer MEDICAID, SELFPAY | PROVIDERS: PCP Internal Medicine; Visit Provider Physician Assistant ==

== ENCOUNTER 2023-05-16 13:07 | Outpatient (AMB) | payer OTHER, SELFPAY ==
--- NOTE | 2023-05-16 14:56 | MHC.WMTHER ---
Intake Intake Visit Reasons: (OV) BH F/U Allergies ibuprofen [From MOTRIN] Allergy (Mild, Verified 05/07/23 13:49) HIVES Ibuprofen (800 MG) Allergy (Unknown, Uncoded 05/07/23 13:49) RASH PFSH Medical History Knee pain Back pain Anxiety Depression Morbid obesity Hypothyroidism Asthma Surgical History Hx of tubal ligation Hx of bilateral salpingectomy Family History Mother Hypertension High cholesterol Father Kidney failure Diabetes Hypertension High cholesterol Son Asthma Daughter Asthma Social History Household Members: Family Housing: Apartment Are you a primary child care center assistant director to a significant other at home: No Do you presently have visiting nurse or other home services: No Alcohol intake: current Alcohol intake frequency: does not drink Patient Tobacco Use Status: Never used Tobacco Smoked in Last 30 Days: No Use of substances other than those prescribed or required for medical reasons: No Advance Directives: No Advance Directives Information Provided: No Patient : No service: No Behavioral Health Assessment Weight Management Therapy Therapy Notes Details Pt presents for a f/up. She had surgery 2 weeks ago. INTERVENTIONS: Discussed post-op journey, processed: challenges/needs and positive things. Worked on mindfulness exercise to use for intrusive thoughts/urges for food. Also, provided with validation around internal conflicts accepting her body changes. Practiced a self-talk exercise in the mirror to [id number] and cope with physical changes after surgery. RESPONSE: Pt was open, active and engaged. She responded well to interventions. PLAN: f/up monthly for support. Assessment & Plan Assessment & Plan (1) Anxiety: Code(s): F41.9 - Anxiety disorder, unspecified (2) Depression: Code(s): F32.A - Depression, unspecified Qualifiers: Depression Type: unspecified Qualified Code(s): F32.A - Depression, unspecified Plan Follow up on a monthly basis for post-surgery support. Next kori: 06/13/2023 @10am in person. Coding Level of Care Code Established Pt Psytx >53 mins (09565) Patient Type Established Diagnoses Anxiety F41.9 Depression, unspecified depression type F32.A Depression Type: unspecified Time Spent (min) 60
== END 2023-05-16 14:57 | disposition home or self-care (01) ==
PROVIDERS: PCP Internal Medicine; Visit Provider Counselor Mental Health
DX: F41.9 Anxiety disorder, unspecified (principal); F32.A Depression, unspecified
CPT/HCPCS: 90837

== ENCOUNTER → 2023-05-16 13:07 | Outpatient (BNVA) | payer MEDICAID, SELFPAY | PROVIDERS: PCP Internal Medicine; Visit Provider Counselor Mental Health | DX: F41.9 Anxiety disorder, unspecified (principal); F32.A Depression, unspecified | CPT/HCPCS: 90837 ==

== ENCOUNTER 2023-05-21 19:14 | Emergency (ER) | payer MEDICAID, SELFPAY ==
[2023-05-21 20:47] VITALS: BP 137/84; PULSE 76; RESP 16; TEMP 36.5; O2SAT 98; BMI 32.9
--- NOTE | 2023-05-21 20:52 | ED_ITS ---
HPI - General Adult General Chief complaint: Abdominal Pain Stated complaint: Short of breath, light headed, post-op Time Seen by Provider: 05/22/23 00:28 Source: patient and family Mode of arrival: ambulatory Limitations: no limitations History of Present Illness HPI narrative: 27-year-old female s/p sleeve gastrectomy 4 weeks ago came in for evaluation of epigastric pain since surgery, decreased p.o. intake, feeling very dehydrated, lightheadedness especially if she changed positions, generalized weakness, patient also been having chest pain and shortness of breath since after the surgery. Related Data Previous Rx's Medication Instructions Recorded ondansetron 4 mg disintegrating 4 mg PO Q12H nausea and vomiting 04/24/23 tablet #20 tabs pantoprazole 40 mg tablet,delayed 40 mg PO DAILY #30 tabs 04/24/23 release sucralfate 100 mg/mL oral 10 ml PO BID #400 mL 04/24/23 suspension Allergies Allergy/AdvReac Type Severity Reaction Status Date / Time ibuprofen [From MOTRIN] Allergy Mild HIVES Verified 05/07/23 13:49 Ibuprofen (800 MG) Allergy Unknown RASH Uncoded 05/07/23 13:49 Review of Systems 2 Review of Systems: All other systems are reviewed and are negative Constitutional: Reports as per HPI and Reports no additional constitutional complaints Eyes: Reports as per HPI and Reports no additional eye complaints Reports system reviewed and no additional complaints, except as documented Cardiovascular: Reports as per HPI and Reports no additional cardiovascular complaints Respiratory: Reports as per HPI and Reports no additional respiratory complaints Gastrointestinal: Reports as per HPI and Reports no additional gastrointestinal complaints Genitourinary: Reports no additional female genitourinary complaints Musculoskeletal: Reports no additional musculoskeletal complaints Skin/Breast: Reports system reviewed and no additional complaints, except as docu Psychiatric: Reports no additional psychiatric complaints Endocrine: Reports no additional endocrine complaints Hematologic/Lymphatic: Reports no additional hematologic/lymphatic complaints Allergic/Immunologic: Reports no additional allergic/immunologic complaints Reports system reviewed and no additional complaints, except as documented and Reports Abnormal speech present [facility] Past Medical History Medical History Knee pain Back pain Anxiety Depression Morbid obesity Hypothyroidism Asthma Surgical History Hx of tubal ligation Hx of bilateral salpingectomy Family History Family History Mother Hypertension High cholesterol Father Kidney failure Diabetes Hypertension High cholesterol Son Asthma Daughter Asthma Social History Social History Household Members: Family Housing: Apartment Are you a primary career and guidance counselor to a significant other at home: No Do you presently have visiting nurse or other home services: No Alcohol intake: current Alcohol intake frequency: does not drink Patient Tobacco Use Status: Never used Tobacco Smoked in Last 30 Days: No Use of substances other than those prescribed or required for medical reasons: No Advance Directives: No Advance Directives Information Provided: No Patient : No service: No Physical Exam ED Vital Signs: Vital Signs - 24 hr 05/21/23 20:47 05/22/23 01:37 Temperature 97.7 F Pulse Rate 76 58 Respiratory Rate 16 18 Blood Pressure 137/84 112/68 Pulse Oximetry 98 100 Oxygen Delivery Method Room Air Room Air BMI result Body Mass Index 32.9 Vital signs have been reviewed and appear to be correct. Blood pressure elevated. Heart rate normal. Respiratory rate normal. Temperature normal. Oxygen saturation normal. Appearance: Alert. Oriented X3. No acute distress. Head: Normal external exam. Normocephalic. Atraumatic. No Earl signs noted. No raccoon eyes noted Eyes: PERRLA. EOMI. Conjunctiva and sclera normal. Eyelids normal. ENT: TM's Normal. Pharynx normal. Uvula midline. Moist mucous membranes. No trismus noted. No drooling noted. No muffled voice noted. Neck: Normal inspection. Neck supple. FROM. No adenopathy. Thyroid Normal. No meningeal signs. No neck mass noted. CVS: Normal heart rate and rhythm. Heart sound normal. No murmurs noted. Pulses normal throughout. Respiratory: No respiratory distress. Painless inspiration. Breath sounds normal. No wheezes/rales/rhonchi noted. Chest nontender. No accessory muscle usage noted or decreased air movement noted. Abdomen: Soft and nontender. Bowel sounds normal in all 4 quadrants. No distention noted. No organomegaly noted. No visible injury noted. Back: No CVA tenderness. Full range of motion noted. Skin: Skin warm and dry. Normal skin color. Normal skin turgor. No rashes/lesions/lacerations noted. Extremities: No lower extremity edema. Extremities exhibit normal range of motion. Extremities nontender. Neuro: Oriented X 3. Cranial nerve exam: II-XII are grossly intact No motor deficit. No sensory deficit. Reflexes normal. Course Course Course Narrative: This is an RME: Additional HPI, ROS, PE not included below will be deferred to primary provider. This is a 27-year-old female, with a hx of gastric sleeve, presenting to the emergency department for evaluation of stomach pain. Patient is 3 weeks postop from gastric sleeve. She states that she is nauseous all the time, with shortness of breath, headache and fatigue. She has not had a bowel movement in 3 weeks. She called her surgeon who told her to keep drinking water and to take her vitamins. She had a tubal ligation, denies chance of . Plan: Labs, chest x-ray, viral swabs, KUB x-ray Reevaluation(s) Reevaluation #1: S/p sleeve gastrectomy few weeks ago came in with abdominal pain, lightheadedness, feeling dizzy, SOB, chest pain. CTA of the chest is showing no pulmonary embolism, abdominal CT is unremarkable for complication after surgery and showing no acute intra-abdominal pathology. Mild hypokalemia will replete potassium will discharge the patient and follow up with Dr. Tapia. Time: 02:45 Medications Administered Discontinued Medications Generic Name Dose Route Start Last Admin Trade Name Freq PRN Reason Stop Dose Admin Sodium Chloride 1,000 mls @ 999 mls/hr 05/22/23 00:45 05/22/23 01:09 Ns IV 05/22/23 01:45 999 mls/hr .Q1H1M ONE Administration Iohexol 85 ml 05/22/23 01:13 05/22/23 01:14 Iohexol 350 Mg/Ml 100 Ml Infus..Btl IV 05/22/23 01:14 85 ml ONCE ONE Administration Medical Decision Making Differential Diagnosis Differential Diagnoses: The differential diagnosis associated with the presentation includes (Severe dehydration, electrolyte abnormality, severe anemia, post surgery complication, pulmonary embolism, bronchitis, colitis, UTI, .) Admission/Observation Consideration of admission/observation: Escalation of care including admission/observation considered Lab Data MDM Lab Attestation statement: I reviewed the patient's lab results. 05/21/23 21:31 05/21/23 21:31 Labs: Lab Results 05/21/23 Range/Units 21:31 WBC 4.6 L (4.8-10.8) X10*3/uL RBC 4.84 (4.20-5.50) X10*6/uL Hgb 14.4 (12.0-16.0) g/dl Hct 43.3 (37.0-47.0) % MCV 89.5 (80.0-98.0) fL MCH 29.8 (27.0-33.0) pg MCHC 33.3 (31.0-35.0) g/dl RDW 13.3 (11.0-16.0) % Plt Count 262 (160-400) X10*3/uL MPV 12.5 H (9.4-12.3) fL Immature Gran % (Auto) 0.0 (0.0-0.4) % Neut % (Auto) 53.1 (45-73) % Lymph % (Auto) 36.2 (20-40) % Cocke % (Auto) 8.6 (2-11) % Eos % (Auto) 1.5 (0-4) % Baso % (Auto) 0.6 (0-2) % Lymph # (Auto) 1.7 (1.2-4.9) X10*3/uL Cocke # (Auto) 0.4 (0.1-1.2) X10*3/uL Eos # (Auto) 0.1 (0.0-0.4) X10*3/uL Baso # (Auto) 0.0 (0.0-0.2) X10*3/uL Abs Immat Gran (auto) 0.00 (0.00-0.03) X10*3/uL Absolute Neuts (auto) 2.5 (2.0-8.3) x10*3/uL Absolute Nucleated RBC 0.000 (0.0-0.012) X10*3/uL Nucleated RBC % (auto) 0.0 (0.0-0.2) /100WBC Sodium 139 (135-145) mmol/L Potassium 3.1 L D (3.3-5.1) mmol/L Chloride 104 (96-108) mmol/L Carbon Dioxide 21 L (22-29) mmol/L Anion Gap 17 (12-20) BUN 8 L (9-16) mg/dL Creatinine 0.71 (0.5-1.4) mg/dL Estim Creat Clear Calc 116.6 Estimated GFR > 60 Random Glucose 91 (60-115) mg/dL Calcium 9.2 (8.4-10.2) mg/dL Total Bilirubin 0.6 (0.0-1.0) mg/dL Direct Bilirubin 0.3 (0.0-0.5) mg/dL AST 25 (5-31) U/L ALT 22 (0-31) U/L Alkaline Phosphatase 62 (39-117) U/L Total Protein 7.9 (6.5-8.0) g/dL Albumin 4.1 (3.5-5.0) g/dL Urine Color Dark Yellow Urine Appearance Clear Urine pH 6.0 (5.0-9.0) Ur Specific [place] >= 1.030 H (1.005-1.025) Urine Protein 30 (1+) H (Neg-Trace) mg/dL Urine Glucose (UA) Negative (Negative) mg/dL Urine Ketones >=160 (Negative) mg/dL Urine Blood Negative (Negative) Urine Nitrite Negative (Negative) Ur Leukocyte Esterase Negative (Negative) Urine RBC 0-2 (0-2) /HPF Urine WBC 0-5 (0-5) /HPF Ur Squamous Epith Cells 6-10 (0-2) /HPF Urine Bacteria None Seen (None Seen) Hyaline Casts 6-10 (0-2) /LPF Urine Test NEGATIVE (NEGATIVE) Influenza Type A (PCR) NEGATIVE (Negative) Influenza Type B (PCR) NEGATIVE (Negative) RSV RNA Qual (PCR) NEGATIVE (Negative) SARS-CoV-2 RNA (RT-PCR) NEGATIVE (Negative) Independent Interpretation I performed an independent interpretation of an: CT Scan (CTA/abdominal CT: No acute PE, no acute intra-abdominal pathology.) Radiology Impression Discussion of test interpretation with radiology: I have reviewed the radiologist's reading. Discharge Plan Discharge Clinical Impression: Acute hypokalemia Abdominal pain Qualifiers: Abdominal location: epigastric Qualified Code(s): R10.13 - Epigastric pain Chest pain Qualifiers: Chest pain type: other chest pain Qualified Code(s): R07.89 - Other chest pain Patient Disposition: Home, Self-Care Prescriptions: No Action pantoprazole 40 mg tablet,delayed release (DR/EC) 40 mg PO DAILY Qty: 30 2RF sucralfate 100 mg/mL suspension 10 ml PO BID Qty: 400 2RF ondansetron 4 mg tablet,disintegrating 4 mg PO Q12H Qty: 20 0RF Rx Instructions: Only take one every 12 hours as needed if you have nausea Referrals: Pepper Jett MD [Primary Care Provider] - Jvay Tapai MD [Physician] -
--- NOTE | 2023-05-21 21:34 | MHC.EDTECH ---
Labs,Sars and a urine specimen was obtained and sent to lab,patient placed back in waiting room.
[2023-05-21 22:08] LABS: Alanine Aminotransferase 22 U/L (0-31); Albumin Level 4.1 g/dL (3.5-5.0); Alkaline Phosphatase 62 U/L (39-117); Anion Gap 17 (12-20); Aspartate Amino Transferase 25 U/L (5-31); Bilirubin Direct 0.3 mg/dL (0.0-0.5); Bilirubin Total 0.6 mg/dL (0.0-1.0); Blood Urea Nitrogen 8 mg/dL (9-16); Calcium 9.2 mg/dL (8.4-10.2); Carbon Dioxide 21 mmol/L (22-29); Chloride 104 mmol/L (96-108); Creatinine Clr Calc Pharmacy 116.6; Estimated Glomerular Filt Rate > 60; Glucose Random 91 mg/dL (60-115); Potassium 3.1 mmol/L (3.3-5.1); Sodium 139 mmol/L (135-145); Total Protein 7.9 g/dL (6.5-8.0)
--- NOTE | 2023-05-22 00:17 | PC.NURSE ---
this rn assumed care. pt a&ox4. respirations even and unlabored. pt reports having a gastric sleeve surgery 3 weeks ago and since then has not moved her bowels, been able to eat or drink without nausea, feels weak and tired. pt denies vomiting and diarrhea. reports when she is walking around she feels weak without dizziness. pt abdomen soft but tender to touch in the mid epigastric region. pt has hypoactive noted throughout 4 quadrants.
[2023-05-22 01:37] VITALS: BP 112/68; PULSE 58; RESP 18; O2SAT 100
[2023-05-22 04:09] VITALS: RESP 19
== END 2023-05-22 04:42 | disposition home or self-care (01) ==
PROVIDERS: Physician Assistant Medical; Emergency Provider Emergency Medicine; PCP Internal Medicine
DX: E87.6 Hypokalemia (principal); R10.13 Epigastric pain; R06.02 Shortness of breath; R53.1 Weakness; R07.89 Other chest pain; Z20.822 Contact with and (suspected) exposure to COVID-19; Z20.828 Contact with and (suspected) exposure to other viral communicable diseases; Z79.899 Other long term (current) drug therapy; Z98.84 Bariatric surgery status
CPT/HCPCS: 0241U; 36415; 71046; 71275; 74018; 74177; 80048; 80076; 81001; 81025; 85025; 96361; 96374; 99284; Q9967

== ENCOUNTER 2023-06-04 13:30 | Outpatient (AMB) | payer MEDICAID, SELFPAY ==
--- NOTE | 2023-06-04 14:39 | A.OFFVIS_ITS ---
Intake VS Expanded 06/04/23 14:42 Height 5 ft 2 in Weight 180 lb BMI 32.9 Intake Visit Reasons: VIDEO PO LSG 04/30/23 Allergies ibuprofen [From MOTRIN] Allergy (Mild, Verified 05/07/23 13:49) HIVES Ibuprofen (800 MG) Allergy (Unknown, Uncoded 05/07/23 13:49) RASH Medication List - Last Reconciled 06/04/23 by Lavonne Ayala PA-C [id number] K 45 mg iron- 800 mcg-120 mcg (Bariatric Multivitamins) caps PO ondansetron 4 mg PO Q12H pantoprazole 40 mg PO DAILY sucralfate 10 mL PO BID HPI HPI Comments History of Present Illness Details Pt is now 5 weeks s/p LSG with Dr Judge. She states chest sensation of feeling like shes losing air and stabbing sensation whether she eats or not. No nausea or vomiting. Feels dizzy 8am wakes up and bed at 9pm. 8:45 am - Slim Fast shake - 30 grams ove r 2.5 hours. 1 oz every 15 minutes 12:45 - same shake - over 2.5 hours 3pm - 5 oz yogurt over 2.5 hours (can't tolerate bars - feels like she wi ll choke) Two 17 oz bottles of water day, no other liquids. Gym daily - treadmill for 300 calories, speed 2.9, incline 2.5 - 15 minutes. [facility], [facility] Medical History Knee pain Back pain Anxiety Depression Morbid obesity Hypothyroidism Asthma Surgical History Hx of tubal ligation Hx of bilateral salpingectomy Family History Mother Hypertension High cholesterol Father Kidney failure Diabetes Hypertension High cholesterol Son Asthma Daughter Asthma Social History Household Members: Family Housing: Apartment Are you a primary wound care physician to a significant other at home: No Do you presently have visiting nurse or other home services: No Alcohol intake: current Alcohol intake frequency: does not drink Patient Tobacco Use Status: Never used Tobacco service: No Assessment & Plan Assessment & Plan (1) Obesity: Code(s): E66.9 - Obesity, unspecified Plan: 5 weeks post op and not tolerating diet well or losing weight. Wakes at 8am =- pantoprazole and carafate 9am- Slim Fast shake - over 2. 5 hours 1pm - Slim fast shake - over 2.5 hours 5pm - 1 oz scrambled egg - take MVI with dinner 10 gram of protein water. per bottle . 34 oz water per day. Exercise - treadmill- speed 3.3, incline 2 - 9 changing every 3 minutes. - 450 calories. 5 d/ week. Text me weekly wiith weight and how this plan is working - if symptoms don't resolve or worsen let me know right away. Next appt in 4 weeks. (2) S/P laparoscopic sleeve gastrectomy: Code(s): Z98.84 - Bariatric surgery status Telehealth Telehealth Location of patient: address on file Patient Identification confirmed using: Name, : Yes Telehealth method: video Patient verbally consented to treatment: Yes Patient verbally consented to billing insurance company: Yes Patient informed of any privacy concerns related to visit: Yes Coding Level of Care Code Global (71251) Diagnoses Obesity E66.9 S/P laparoscopic sleeve gastrectomy Z98.84
[2023-06-04 14:42] VITALS: BMI 32.9
== END 2023-06-04 15:05 | disposition home or self-care (01) ==
LOC: HO.HBS 14:45
PROVIDERS: PCP Internal Medicine; Visit Provider Physician Assistant
DX: E66.9 Obesity, unspecified (principal); Z98.84 Bariatric surgery status
CPT/HCPCS: 99024

== ENCOUNTER → 2023-06-04 13:30 | Outpatient (BNVA) | payer MEDICAID, SELFPAY | PROVIDERS: PCP Internal Medicine; Visit Provider Physician Assistant ==

== ENCOUNTER 2023-06-13 09:58 | Outpatient (AMB) | payer MEDICAID, SELFPAY ==
--- NOTE | 2023-06-13 10:43 | A.OFFWM_ITS ---
Intake Intake Visit Reasons: (OV) PO LSG 04/30/23 Allergies ibuprofen [From MOTRIN] Allergy (Mild, Verified 05/07/23 13:49) HIVES Ibuprofen (800 MG) Allergy (Unknown, Uncoded 05/07/23 13:49) RASH PFSH Medical History Knee pain Back pain Anxiety Depression Morbid obesity Hypothyroidism Asthma Surgical History Hx of tubal ligation Hx of bilateral salpingectomy Family History Mother Hypertension High cholesterol Father Kidney failure Diabetes Hypertension High cholesterol Son Asthma Daughter Asthma Social History Household Members: Family Housing: Apartment Are you a primary healthcare liaison to a significant other at home: No Do you presently have visiting nurse or other home services: No Alcohol intake: current Alcohol intake frequency: does not drink Patient Tobacco Use Status: Never used Tobacco service: No Behavioral Health Assessment Weight Management Therapy Therapy Notes Details Pt presents for a follow up. PT reports she is struggling as she has an ongoing stomach pain and been emotionally dysregulated. i'm very anxious During the session, the therapist called the product manager e commerce (Leticia Craven) and Pt was provided with insights about her ongoing struggles, was also given the option for new vitamin brand and was advised to text Lavonne for insights as her pain might have other reasons. INTERVENTIONS: Active listening, processed ongoing challenges and mental status. PT shared of some hights she had 2 weeks ago and current downs she has been struggling with since last week. Worked on ABC analysis to support client with current triggers, identifying her responses and adopting new coping strategies. Pt was sent and email with anxiety-management resources including 2 videos, and has been encouraged to use techniques even if feeling well. A safety plan was developed due to current Sx. Performed a safety plan and patient denied any safety concerns or active risk with self-harming, other-harm and/or any concerns regarding SI/SA. therapist validated and normalized feelings. Provided psychoeducation about cycle of anxiety and we identified things out/withing her control. RESPONSE: PT responded well to interventions. Was active and engaged in session. PLAN: PT will be seen next week as she needs a sooner appointment. We completed a safety plan and Pt was given Crisis number and national suicide helpline. Assessment & Plan Assessment & Plan (1) Anxiety: Code(s): F41.9 - Anxiety disorder, unspecified (2) Depression: Code(s): F32.A - Depression, unspecified Qualifiers: Depression Type: unspecified Qualified Code(s): F32.A - Depression, unspecified Plan We will try to meet weekly. Next kori: Monday 06/18 at 12 via telehealth. Coding Level of Care Code Established Pt Tele Psytx >53 mins (98091) Patient Type Established Diagnoses Anxiety F41.9 Depression, unspecified depression type F32.A Depression Type: unspecified Time Spent (min) 120 Comment Extended session due to current Sx presentation.
== END 2023-06-13 11:00 | disposition home or self-care (01) ==
PROVIDERS: PCP Internal Medicine; Visit Provider Counselor Mental Health
DX: F41.9 Anxiety disorder, unspecified (principal); F32.A Depression, unspecified
CPT/HCPCS: 90837

== ENCOUNTER → 2023-06-13 09:58 | Outpatient (BNVA) | payer MEDICAID, SELFPAY | PROVIDERS: PCP Internal Medicine; Visit Provider Counselor Mental Health ==

== ENCOUNTER 2023-06-18 12:00 | Outpatient (AMB) | payer OTHER, SELFPAY ==
--- NOTE | 2023-06-18 12:48 | A.OFFWM_ITS ---
Intake Intake Visit Reasons: VIDEO PO LSG 04/30/23 Allergies ibuprofen [From MOTRIN] Allergy (Mild, Verified 06/21/23 23:38) HIVES Ibuprofen (800 MG) Allergy (Unknown, Uncoded 06/21/23 23:38) [facility] Medical History Knee pain Back pain Anxiety Depression Morbid obesity Hypothyroidism Asthma Surgical History Hx of tubal ligation Hx of bilateral salpingectomy Family History Mother Hypertension High cholesterol Father Kidney failure Diabetes Hypertension High cholesterol Son Asthma Daughter Asthma Social History Household Members: Family Housing: Apartment Are you a primary senior caregiver to a significant other at home: No Do you presently have visiting nurse or other home services: No Alcohol intake: never Patient Tobacco Use Status: Never used Tobacco service: No Behavioral Health Assessment Weight Management Therapy Therapy Notes Details Pt presents for a follow up sooner than anticipated due to Sx presentation and functioning challenges expressed by her on our last visit. Patient reports she is better, denied any Self-harm/other harm, and/or any safety concerns, also stated she has not been in need to refer to safety plan we developed. Stated that since she changed the vitamins per [employer] instructions she has no more stomach pain and is feeling much better. On the other hand, emotionally she reports to be emotionally numb but functioning well. Has been sleeping more as she feels tired. INTERVENTIONS: Cognitive processing therapy. Showed the cycle of depression and identified current stage as a Depressive episode, and responses. Worked on strategies to work on emotional numbness , such as grounding techniques and mindfulness exercise using the 5 senses. Advised client to use behavioral activation plan and commit to have a daily walk, schedule shakes/bar s/meal, prioritize self-care (hygiene, sleep, eating, grooming) and continue practicing relaxation strategies provided. This with the goal to engage in at least 2-3 constructive coping activities at day even if feeling better for Sx management. RESPONSE: Pt active, talkative and engaged. Responded well to intervention, MSE reflecting miild-moderate Sx of depression, and mild functioning challenges. No safety sx/concerns were identified. PLAN: Pt needs to schedule f/up kori with Lavonne. We will continue meeting on a weekly basis until functioning is not impaired and/or Sx resolve. Assessment & Plan Assessment & Plan (1) Anxiety: Code(s): F41.9 - Anxiety disorder, unspecified (2) Depression: Code(s): F32.A - Depression, unspecified Qualifiers: Depression Type: unspecified Qualified Code(s): F32.A - Depression, unspecified Plan Follow up in 1-2 week. Next kori: [place]. Telehealth Telehealth Location of provider rendering services: other (home office. [place], [place].) Location of patient: address on file Patient Identification confirmed using: Name, : Yes Telehealth method: video Patient verbally consented to treatment: Yes Patient verbally consented to billing insurance company: Yes Patient informed of any privacy concerns related to visit: Yes Minutes spent on Phone/Video with Pt.: 60 Coding Level of Care Code Established Pt Tele Psytx >53 mins (95923) Patient Type Established Diagnoses Anxiety F41.9 Depression, unspecified depression type F32.A Depression Type: unspecified
== END 2023-06-18 13:00 | disposition home or self-care (01) ==
LOC: HO.HBST 13:05
PROVIDERS: PCP Internal Medicine; Visit Provider Counselor Mental Health
DX: F33.1 Major depressive disorder, recurrent, moderate (principal); F41.9 Anxiety disorder, unspecified
CPT/HCPCS: 90837

== ENCOUNTER → 2023-06-18 12:00 | Outpatient (BNVA) | payer OTHER, MEDICAID, SELFPAY | PROVIDERS: PCP Internal Medicine; Visit Provider Counselor Mental Health ==

== ENCOUNTER 2023-06-21 23:29 | Emergency (ER) | payer MEDICAID, SELFPAY ==
--- NOTE | ~2023-06-21 | XR_ITS ---
EXAMINATION: XR ABDOMEN KUB CLINICAL INDICATION: Pain. COMPARISON: None available. TECHNIQUE: AP view of the abdomen. FINDINGS: The bowel gas pattern is normal with no evidence of ileus or obstruction. There is retained stool throughout. No unusual soft tissue calcifications are noted. The bones are unremarkable. XR/XR KUB IMPRESSION: Nonspecific bowel gas pattern. Retained stool throughout the colon.
[2023-06-21 23:38] VITALS: BP 124/76; PULSE 64; RESP 16; TEMP 36.4; O2SAT 100; BMI 31.6
--- NOTE | 2023-06-21 23:53 | ED.GENADULT ---
HPI - General Adult General Chief complaint: Abdominal Pain Stated complaint: Constipation Time Seen by Provider: 06/21/23 23:53 Source: patient Mode of arrival: ambulatory Limitations: no limitations History of Present Illness HPI narrative: Patient status post gastric sleeve surgery 04/30 was seen here on 05/21 for diffuse abdominal discomfort and not moving her bowels CT scan was negative KUB showed only small amount of stool patient been eating for last 2 weeks and still not moving bowels taking MiraLax has seen bariatric surgeon 2 weeks ago passing gas but no stool no nausea no vomiting feels hungry Related Data Home Medications Medication Instructions Recorded Confirmed ghwkyngl-gfpprpcv-ddkg 45 mg-folic cap PO 06/04/23 06/04/23 acid 800 mcg-vit K 120 mcg capsule (Bariatric Multivitamins) Previous Rx's Medication Instructions Recorded ondansetron 4 mg disintegrating 4 mg PO Q12H nausea and vomiting 04/24/23 tablet #20 tabs pantoprazole 40 mg tablet,delayed 40 mg PO DAILY #30 tabs 04/24/23 release sucralfate 100 mg/mL oral 10 ml PO BID #400 mL 04/24/23 suspension bisacodyl 5 mg tablet,delayed 10 mg (2 x 5 mg) PO DAILY PRN 06/22/23 release (Dulcolax (bisacodyl)) constipation #30 tabs Allergies Allergy/AdvReac Type Severity Reaction Status Date / Time ibuprofen [From MOTRIN] Allergy Mild HIVES Verified 06/21/23 23:38 Ibuprofen (800 MG) Allergy Unknown RASH Uncoded 06/21/23 23:38 Review of Systems Review of Systems: Yes all other systems are reviewed and are negative PMFSH Past Medical History Medical History Knee pain Back pain Anxiety Depression Morbid obesity Hypothyroidism Asthma Surgical History Hx of tubal ligation Hx of bilateral salpingectomy Family History Family History Mother Hypertension High cholesterol Father Kidney failure Diabetes Hypertension High cholesterol Son Asthma Daughter Asthma Social History Social History Household Members: Family Housing: Apartment Are you a primary career development director to a significant other at home: No Do you presently have visiting nurse or other home services: No Alcohol intake: current Alcohol intake frequency: does not drink Patient Tobacco Use Status: Never used Tobacco Advance Directives: No Advance Directives Information Provided: No service: No Physical Exam ED Vital Signs: Vital Signs - 24 hr 06/21/23 23:38 Temperature 97.5 F Pulse Rate 64 Respiratory Rate 16 Blood Pressure 124/76 Pulse Oximetry 100 Oxygen Delivery Method Room Air BMI result Body Mass Index 31.6 Appearance: Alert. Oriented X3. No acute distress. Eyes: No pallor noted ENT: Pharynx normal. Oral Mucosa moist Neck: Normal inspection. Neck supple. CVS: Normal heart rate and rhythm. Pulses normal. Respiratory: No respiratory distress. Equal air entry bilateral, Abdomen: Soft and nontender. Bowel sounds are present, no mass palpable, rectal: Semi solid stool brown color Skin: Skin warm and dry. Normal skin color. Normal skin turgor. Extremities: No lower extremity edema. No calf tenderness Neuro: Oriented X 3. No motor deficit. Medications Administered Discontinued Medications Generic Name Dose Route Start Last Admin Trade Name Freq PRN Reason Stop Dose Admin Bisacodyl 10 mg 06/22/23 01:03 06/22/23 01:19 Bisacodyl 5 Mg Tablet.Dr PO 06/22/23 01:04 10 mg ONCE ONE Administration Magnesium Hydroxide 30 ml 06/22/23 01:03 06/22/23 01:19 Milk Of Magnesia 30 Ml Oral.Susp PO 06/22/23 01:04 30 ml ONCE ONE Administration Sodium Biphosphate/Sodium Phosphate 133 ml 06/22/23 01:04 06/22/23 01:19 Sodium Phosphate,Ness-Dibasic 133 Ml Enema MD 06/22/23 01:05 133 ml ONCE ONE Administration Medical Decision Making Medical Decision Making MDM Narrative: Patient with constipation without any impaction patient refused Fleet enema in the ER was given milk of magnesia and Dulcolax advised to follow up with bariatric surgeon Differential Diagnosis Differential Diagnoses: The differential diagnosis associated with the presentation includes Fecal impaction/constipate Independent Interpretation I performed an independent interpretation of an: Plain X-Ray Radiology Impression Discussion of test interpretation with radiology: I have reviewed the radiologist's reading. Discharge Plan Discharge Clinical Impression: Constipation Patient Disposition: Home, Self-Care Instructions: Constipation (ED) Additional Instructions: Continue taking MiraLax you may take it 2 to 3 times a day as needed Dulcolax for constipation Prescriptions: New bisacodyl [Dulcolax (bisacodyl)] 5 mg tablet,delayed release (DR/EC) 10 mg PO DAILY PRN (Reason: constipation) Qty: 30 0RF No Action pantoprazole 40 mg tablet,delayed release (DR/EC) 40 mg PO DAILY Qty: 30 2RF sucralfate 100 mg/mL suspension 10 ml PO BID Qty: 400 2RF ondansetron 4 mg tablet,disintegrating 4 mg PO Q12H Qty: 20 0RF Rx Instructions: Only take one every 12 hours as needed if you have nausea Bariatric Multivitamins 45 mg iron- 800 mcg-120 mcg capsule PO
--- NOTE | 2023-06-22 00:34 | PC.NURSE ---
This RN at bedside during rectal exm with provider. Pt up to try and use the bathroom.
[2023-06-22] MEDS: Milk of Magnesia 30 ML ORAL.SUSP PO (01:19)
[2023-06-22] MEDS: Sodium Phosphate,Mono-Dibasic 133 ML ENEMA PR (01:19)
[2023-06-22] MEDS: bisacodyL 5 MG TABLET.DR 10 MG PO (01:19)
== END 2023-06-22 01:00 | disposition home or self-care (01) ==
PROVIDERS: Emergency Provider Internal Medicine
DX: K59.00 Constipation, unspecified (principal); Z79.899 Other long term (current) drug therapy
CPT/HCPCS: 74018; 99284

== ENCOUNTER 2023-07-03 11:30 | Outpatient (AMB) | payer OTHER, SELFPAY ==
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
== END 2023-07-03 12:15 | disposition home or self-care (01) ==
LOC: HO.HBST 12:21
PROVIDERS: Visit Provider Counselor Mental Health
DX: F33.1 Major depressive disorder, recurrent, moderate (principal); F41.9 Anxiety disorder, unspecified
CPT/HCPCS: 90834

== ENCOUNTER → 2023-07-03 11:30 | Outpatient (BNVA) | payer OTHER, MEDICAID, SELFPAY | PROVIDERS: Visit Provider Counselor Mental Health | DX: F41.9 Anxiety disorder, unspecified (principal); F32.A Depression, unspecified ==

== ENCOUNTER 2023-07-15 15:00 | Outpatient (AMB) | payer MEDICAID, SELFPAY ==
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
== END 2023-07-15 15:21 | disposition home or self-care (01) ==
LOC: HO.HBS 15:12
PROVIDERS: Visit Provider Physician Assistant
DX: Z98.84 Bariatric surgery status (principal)
CPT/HCPCS: 99024

== ENCOUNTER → 2023-07-15 15:00 | Outpatient (BNVA) | payer MEDICAID, SELFPAY | PROVIDERS: Visit Provider Physician Assistant | DX: Z98.84 Bariatric surgery status (principal) | CPT/HCPCS: 99212 ==

== ENCOUNTER 2023-08-26 17:07 | Emergency (ER) | payer MEDICAID, SELFPAY | END 2023-08-26 19:29 | disposition left against medical advice (07) | LOC: HO.ED 19:09 | PROVIDERS: Emergency Provider Emergency Medicine | DX: R42 Dizziness and giddiness (principal) ==

== ENCOUNTER 2025-01-06 21:18 | Emergency (ER) | payer MEDICAID, SELFPAY ==
--- NOTE | ~2025-01-06 | XR_ITS ---
CLINICAL HISTORY: fall pain 2 view left tibia-fibula Comparison: None Findings No fractures or dislocations. No joint effusion. No significant arthritic change. No radiopaque foreign body. IMPRESSION: 1. Normal left tibia-fibula This document has been electronically signed by: Milind Cordero MD on 01/06/2025 22:36:50
[2025-01-06 21:36] VITALS: BP 130/72; PULSE 64; RESP 16; TEMP 36.6; O2SAT 100; BMI 30.3
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
[2025-01-06] MEDS: Acetaminophen 325 MG TABLET 975 MG PO (23:09)
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
[2025-01-07 00:21] VITALS: BP 130/72; PULSE 64; RESP 16; TEMP 36.6; O2SAT 100
== END 2025-01-07 00:22 | disposition home or self-care (01) ==
PROVIDERS: Emergency Provider Internal Medicine
DX: S93.402A Sprain of unspecified ligament of left ankle, initial encounter (principal); S96.912A Strain of unspecified muscle and tendon at ankle and foot level, left foot, initial encounter; W23.0XXA Caught, crushed, jammed, or pinched between moving objects, initial encounter; Y93.55 Activity, bike riding; Y92.414 Local residential or business street as the place of occurrence of the external cause; Y99.9 Unspecified external cause status
CPT/HCPCS: 73590; 99283; 99284

== ENCOUNTER → 2025-01-06 21:50 | Outpatient (BNV) | payer MEDICAID, SELFPAY | PROVIDERS: Emergency Provider Internal Medicine; Visit Provider Specialist | DX: M79.662 Pain in left lower leg (principal); W19.XXXA Unspecified fall, initial encounter | CPT/HCPCS: 73590 ==

== ENCOUNTER 2025-03-11 14:59 | Outpatient (AMB) | payer MEDICAID, SELFPAY ==
--- OUTSIDE RECORDS SUMMARY | 2025-03-11 15:03 | XMS_ITS | Clinical Summary ---
Author Organization [employer] Address [address] [place] [address] Care Team Providers Care Environmental Technician Name Role Phone Pepper Jett MD Primary Care Provider [phone] Allergies Active Allergy Reactions Criticality Noted Date Comments Ibuprofen Hives 05/08/2012 Medications ondansetron ODT (Zofran-ODT) 4 MG disintegrating tablet Take 1 tablet by mouth every 12 (twelve) hours if needed for nausea or vomiting. 3 Active pantoprazole (ProtoNix) 40 MG EC tablet Take 1 tablet by mouth 1 (one) time each day. 3 Active Carafate 1 GM/10ML suspension SHAKE LIQUID AND TAKE 10 ML BY MOUTH TWICE DAILY 3 Active albuterol 108 (90 Base) MCG/ACT inhalerIndications: Mild intermittent asthma without complication Inhale 2 puffs every 6 (six) hours if needed for wheezing. 18 g 11 3 Active Active Problems Problem Noted Date Diagnosed Date Obesity 05/30/2023 05/30/2023 Hypothyroidism 05/30/2023 05/30/2023 Social History Tobacco Use Types Packs/Day Years Used Date Smoking Tobacco: Never Smokeless Tobacco: Never Tobacco Cessation:Counseling Given: No Alcohol Use Standard Drinks/Week Comments Never 0 (1 standard drink = 0.6 oz pur e alcohol) Housing Stability Answer Date Recorded What is your housing situation today? I have rené osborn 05/27/[address] you li ve. Do you have problems with any of the following? None of the above 05/27/2023 Food Insecurity Answer Date Recorded Within the past 12 months, y ou worried that your food would run out before you got money to buy more: Never True 05/27/2023 Within the past 12 months,th e food you bought just didn't last and you didn't have enough money to get more: Never True Transportation Answer Date Recorded In the past 12 months, has l ack of transportation kept you from medical appts, meetings, work or from getting things needed for daily living? No 05/27/2023 Utilities Answer Date Recorded In the past 12 months, has t he [employer], gas, oil or water company threatened to shut off services in your home? No 05/27/2023 Comments Unknown Sex and Gender Information Value Date Recorded Sex Assigned at Female 06/11/2022 10:15 AM EDT Legal Sex Female 10:15 AM EDT Gender Identity Female 06/11/2022 10:15 AM EDT Sexual Orientation Don't know 06/11/2022 10 :15 AM EDT Last Filed Vital Signs Vital Sign Reading Time Taken Comments Blood Pressure 119/75 05/30/2023 11:06 AM EDT Pulse 57 05/30/2023 11:06 AM EDT Temperature 36.2 C (97.1 F) 05/30/2023 11:06 AM EDT Respiratory Rate 18 05/30/2023 11:06 AM EDT Oxygen Saturation 98% 05/30/2023 11:06 AM EDT Inhaled Oxygen Concentration - - Weight 81.2 kg (179 lb) 05/30/2023 11:06 AM EDT Height 161.3 cm (5' 3.5 ) 05/30/2023 11:06 AM ED T Body Mass Index 31.21 05/30/2023 11:06 AM EDT Plan of Treatment Health Maintenance Due Date Last Done Comments Depression Screening 1994 HIV Screening 1994 Lipid Panel 1994 Disability Screening 1994 Alcohol/Substance Use Screening 2006 Family Planning (PISQ) 2009 Hepatitis C Screening 2012 Pap Smear 2015 COVID-19 Vaccine ( season) 2024 02/14/2021, 12/28/2020 SDOH Screening 05/02/2024 05/02/2023 Tobacco Screening 05/30/2024 05/30/2023 Cervical Cancer Screening 2024 HPV/Cotest 2024 DTaP/Tdap/Td Vaccines (3 - Td or Tdap) 03/15/2025 03/15/2015, 08/21/2007, 07/28/1999, Additional history exists Influenza Vaccine (#1) 2025 07/03/2015, 2010 Zoster Vaccines (1 of 2) 2044 RSV Patients and Patients Aged 60 years or older (1 - 1-dose 75+ series) 2069 Hepatitis B Vaccines Completed 03/31/1997, 05/12/1996, 03/11/1995 HIB Vaccines Completed 03/11/1998, 05/12, 03/11/1995 IPV Vaccines Completed 07/28/1999, 10/11, 05/22/1996, Additional history exists Meningococcal Vaccine Aged Out 08/21/2007 No raúl shahram eligible based on patient's age to complete this topic HPV Vaccines Completed 04/26/2011, 08/12, 08/21/2007 Hepatitis A Vaccines Aged Out No long er eligible based on patient's age to complete this topic Meningococcal B Vaccine Aged Out No l onger eligible based on patient's age to complete this topic Pneumococcal Vaccine: Pediatrics (0 to 5 Years) and At-Risk Patients (6 to 49) Years Aged Out No longer eligible based on patient's age to complete this topic RSV under 20 months Aged Out No longe r eligible based on patient's age to complete this topic Rotavirus Vaccines Aged Out No longer eligible based on patient's age to complete this topic Insurance [facility] C3 Care Teams Environmental Technician Relationship Specialty Start Date End Date Pepper Jett MD [address] [place] [address] [place] Desir [id number] PCP - General Internal Medicine 05/19/21
--- NOTE | 2025-03-11 15:04 | A.OFFVIS_ITS ---
VS Expanded 03/11/25 15:11 BP 125/72 Blood Pressure Location Rt brachial Blood Pressure Position Sitting Pulse 58 Pulse Source Pulse Oximeter Temp 97.2 F Temperature Source Temporal Artery Scan Pulse Oximetry 99 Oxygen Delivery Method Room Air Height 5 ft 2 in Weight 168 lb BMI 30.7 Body Fat % 34.4 Body Fat Mass 57.8 Fat Free Mass 110.2 Visceral Fat Rating 6.0 Body Water % 47.1 Body Water Mass 79.2 Muscle Mass/Score 104.8 Basal Metabolic Rate/Score 1,528 Intake Visit Reasons: OV PO LSG 04/30/23 Allergies ibuprofen (From MOTRIN) Allergy (Mild, Verified 03/11/25 15:06) HIVES Ibuprofen (800 MG) Allergy (Unknown, Uncoded 06/21/23 23:38) RASH Medication List - Last Reconciled 03/11/25 by DOMINIC Arreaga bisacodyl (Dulcolax (bisacodyl)) 10 mg (2 x 5 mg) PO DAILY PRN ylahpwywciqh-ztz-djzm-FA-vit K 45 mg iron- 800 mcg-120 mcg (Bariatric Multivitamins) caps PO HPI Comments Details: This?is a?29?yo F who is s/p LSG 04/30/2023. Weight gain of 4lbs since last OV in Jul 2023. No complaints of nausea, emesis, abdominal pain or reflux, or constipation. Lowest weight she was able to achieve was 135lbs. [place] comfortable around 140lbs, felt too thin at 135. Present meal plan includes: avoids soda but does drink juice eats mostly whole foods, will sometimes have [employer] shakes (vanilla) Exercise routine includes: gets dizzy, gets some arm and leg pain with some bruising Pt has excess skin of abdomen, for which she gets rashes and uses an eczema cream to treat. PFSH Medical History Knee pain Back pain Anxiety Depression Morbid obesity Hypothyroidism Asthma Surgical History Hx of tubal ligation Hx of bilateral salpingectomy Family History Mother Hypertension High cholesterol Father Kidney failure Diabetes Hypertension High cholesterol Son Asthma Daughter Asthma Social History (Updated 03/11/25 @ 15:07 by Nicole Houser CMA) Household Members: Family Housing: Apartment Are you a primary farm or ranch animal caretaker to a significant other at home: No Do you presently have visiting nurse or other home services: No Alcohol intake: current Alcohol intake frequency: holidays/special occasions only Patient Tobacco Use Status: Never used Tobacco service: No Physical Exam Vital Signs: Last Vital Signs Temp 97.2 F 03/11/25 15:11 Pulse 58 03/11/25 15:11 BP 125/72 03/11/25 15:11 Pulse Ox 99 03/11/25 15:11 Oxygen Delivery Method Room Air 03/11/25 15:11 BMI result Body Mass Index 30.7 Assessment & Plan Assessment & Plan (1) S/P laparoscopic sleeve gastrectomy: Code(s): Z98.84 - Bariatric surgery status Category: Surgical (2) Obesity: Code(s): E66.9 - Obesity, unspecified Category: Medical Plan Gave pt [employer] kori info and encouraged her to download a structured plan. Encouraged her to exercise with walking which she says she can do comfortably. Gave her my cell phone # and instructed her to text me with any questions. Labs ordered. RTC 8w. Orders: Orders Vitamin D 25-OH Total Today Z98.84 - Bariatric surgery status C Reactive Protein Today Z.84 - Bariatric surgery status Zinc Today Z98.84 - Bariatric surgery status Comprehensive Met. Panel Today Z.84 - Bariatric surgery status Complete Blood Count Auto Diff Today Z98.84 - Bariatric surgery status IRON PROFILE Today Z98.84 - Bariatric surgery status Insulin Today Z98.84 - Bariatric surgery status Ferritin Today Z98.84 - Bariatric surgery status TSH reflex Free T4 Today Z98.84 - Bariatric surgery status Vitamin B1 Today Z98.84 - Bariatric surgery status Vitamin A Today Z98.84 - Bariatric surgery status Vitamin B12 and Folate Today Z98.84 - Bariatric surgery status Lipid Panel Today Z98.84 - Bariatric surgery status Hemoglobin A1c Today Z98.84 - Bariatric surgery status
[2025-03-11 15:11] VITALS: BP 125/72; PULSE 58; TEMP 36.2; O2SAT 99; BMI 30.7
== END 2025-03-11 15:52 | disposition home or self-care (01) ==
LOC: HO.HBS 15:00
PROVIDERS: Visit Provider Physician Assistant Surgical
DX: E66.9 Obesity, unspecified (principal); Z68.30 Body mass index [BMI] 30.0-30.9, adult; Z90.3 Acquired absence of stomach [part of]; Z98.84 Bariatric surgery status
CPT/HCPCS: 99214

== ENCOUNTER → 2025-03-11 14:59 | Outpatient (BNVA) | payer MEDICAID, SELFPAY | PROVIDERS: Visit Provider Physician Assistant Surgical | DX: E66.9 Obesity, unspecified (principal); L98.7 Excessive and redundant skin and subcutaneous tissue; R21 Rash and other nonspecific skin eruption; Z68.30 Body mass index [BMI] 30.0-30.9, adult; Z90.3 Acquired absence of stomach [part of]; Z98.84 Bariatric surgery status | CPT/HCPCS: 99212 ==

== ENCOUNTER 2025-05-03 12:09 | Outpatient (AMB) | payer MEDICAID, SELFPAY ==
--- NOTE | 2025-05-03 12:05 | A.OFFVIS_ITS ---
VS Expanded 05/03/25 12:16 Height 5 ft 2 in Weight 168 lb BMI 30.7 Intake Visit Reasons: TV PO LSG 04/30/23 Allergies ibuprofen (From MOTRIN) Allergy (Mild, Verified 03/11/25 15:06) HIVES Ibuprofen (800 MG) Allergy (Unknown, Uncoded 06/21/23 23:38) RASH Medication List - Last Reconciled 05/03/25 by DOMINIC Arreaga bisacodyl (Dulcolax (bisacodyl)) 10 mg (2 x 5 mg) PO DAILY PRN mepuxhkvkvra-kcy-woif-FA-vit K 45 mg iron- 800 mcg-120 mcg (Bariatric Multivitamins) caps PO HPI Comments Details: This?is a?29?yo F who is s/p LSG 04/30/2023. Weight same today, pt reports she has been fluctuating. No complaints of nausea, emesis, abdominal pain or reflux, or constipation. Lowest weight she was able to achieve was 135lbs. [place] comfortable around 140lbs, felt too thin at 135. Pt feels anxious which leads to snacking- granola bar Meal plan: at last visit gave [employer] [facility] download info, but says she didn't update it was taking 2 full Premier shakes per day eats once a day- chicken Exercise: walks and hikes - 2x a week hikes [place], almost every day will walk- 2 hours PFSH Medical History Knee pain Back pain Anxiety Depression Morbid obesity Hypothyroidism Asthma Surgical History Hx of tubal ligation Hx of bilateral salpingectomy Family History Mother Hypertension High cholesterol Father Kidney failure Diabetes Hypertension High cholesterol Son Asthma Daughter Asthma Social History (Updated 03/11/25 @ 15:07 by Nicole Houser CMA) Household Members: Family Housing: Apartment Are you a primary inspector health care facilities to a significant other at home: No Do you presently have visiting nurse or other home services: No Alcohol intake: current Alcohol intake frequency: holidays/special occasions only Patient Tobacco Use Status: Never used Tobacco service: No Telehealth Telehealth Telehealth Platform: Telephone Location of provider rendering services: other Location of patient: address on file Patient Identification confirmed using: Name, : Yes Telehealth method: voice only Patient verbally consented to treatment: Yes Patient verbally consented to billing insurance company: Yes Patient informed of any privacy concerns related to visit: Yes Minutes spent on Phone/Video with Pt.: 18 Assessment & Plan Assessment & Plan (1) Obesity: Code(s): E66.9 - Obesity, unspecified Category: Medical (2) S/P laparoscopic sleeve gastrectomy: Code(s): Z98.84 - Bariatric surgery status Category: Medical Plan Encouraged pt to track exercise calories. Recommended following plan from [employer] [facility] more closely. She would benefit from appt with BH to discuss anxiety induced snacking and pt is agreeable to this. Labs previously ordered, pt reminded to have done. RTC 4mo.
[2025-05-03 12:16] VITALS: BMI 30.7
== END 2025-05-03 12:27 | disposition home or self-care (01) ==
LOC: HO.HBS 12:09
PROVIDERS: Visit Provider Physician Assistant Surgical
DX: E66.9 Obesity, unspecified (principal); Z98.84 Bariatric surgery status
CPT/HCPCS: 99214

== ENCOUNTER 2025-05-21 11:47 | Outpatient (AMB) | payer OTHER, SELFPAY ==
--- NOTE | 2025-05-21 14:11 | A.OFFWM_ITS ---
Intake Intake Visit Reasons: VIDEO PO LSG 04/30/23 Allergies ibuprofen (From MOTRIN) Allergy (Mild, Verified 03/11/25 15:06) HIVES Ibuprofen (800 MG) Allergy (Unknown, Uncoded 06/21/23 23:38) RASH [facility] Medical History Knee pain Back pain Anxiety Depression Morbid obesity Hypothyroidism Asthma Surgical History Hx of tubal ligation Hx of bilateral salpingectomy Family History Mother Hypertension High cholesterol Father Kidney failure Diabetes Hypertension High cholesterol Son Asthma Daughter Asthma Social History (Updated 03/11/25 @ 15:07 by Nicole Houser CMA) Household Members: Family Housing: Apartment Are you a primary personal care attendant to a significant other at home: No Do you presently have visiting nurse or other home services: No Alcohol intake: current Alcohol intake frequency: holidays/special occasions only Patient Tobacco Use Status: Never used Tobacco service: No Behavioral Health Assessment Weight Management Therapy Therapy Notes Details Subjective: The patient underwent weight loss surgery two years ago. She reports that since starting a new job in December 2024, she has struggled to maintain her weight. Her lowest post-surgical weight was 130 lbs; her current weight is 174 lbs, which she finds frustrating. Her goal weight is 145?150 lbs. The patient is not currently in counseling and expresses interest in additional support for anxiety and stress management. Objective: The patient attended her behavioral health appointment via Telehealth. Discussed functioning and challenges. Interventions included collaboratively setting specific goals and intentions for weight management and emotional well-being. We explored barriers to consistency, such as work-related stress, time management challenges, and emotional eating triggers. Problem-solving strategies were discussed to help her integrate healthy habits into her new routine. Psychoeducation was provided on the impact of stress and anxiety on weight and the importance of self-care practices, including sleep hygiene and regular physical activity. Assessment/Response: * Mental status: Alert and oriented, mood is frustrated but motivated, affect congruent, thought process logical and goal-directed, no evidence of psychosis. * Risk reported/identified: No suicidal or homicidal ideation, no self-harm behaviors reported. Presenting Concerns Referral Source [facility]-Provider. Lazara ALFARO Reason for referral Get support due to weight gain after weight-loss surgery and increased anxiety. Assessment & Plan Assessment & Plan (1) Anxiety: Code(s): F41.9 - Anxiety disorder, unspecified (2) Unspecified mood [affective] disorder: Code(s): F39 - Unspecified mood [affective] disorder (3) S/P laparoscopic sleeve gastrectomy: Code(s): Z98.84 - Bariatric surgery status Plan Homework: * Use the [employer] platform to create a meal plan and gather all necessary resources to follow it. * Organize the remainder of the month, including scheduling appointments, children?s activities, and setting aside time for physical activity at least three times per week, as well as daily meal preparation. * Complete recommended laboratory tests. * Prioritize sleep hygiene practices. Next appointment scheduled for 06/09/2025 at 11am, in person. Telehealth Telehealth Telehealth Platform: [facility] Location of provider rendering services: other (Home office. [place], [place]) Location of patient: address on file Patient Identification confirmed using: Name, : Yes Telehealth method: video Patient verbally consented to treatment: Yes Patient verbally consented to billing insurance company: Yes Patient informed of any privacy concerns related to visit: Yes Minutes spent on Phone/Video with Pt.: 55 [place] [address] Tele Psytx >53 mins Patient Type Established Diagnoses Anxiety F41.9 Unspecified mood [affective] disorder F39 S/P laparoscopic sleeve gastrectomy Z98.84 Time Spent (min) 55
== END 2025-05-21 15:07 | disposition home or self-care (01) ==
LOC: HO.HBST 11:47
PROVIDERS: Visit Provider Counselor Mental Health
DX: F41.9 Anxiety disorder, unspecified (principal); F39 Unspecified mood [affective] disorder; Z98.84 Bariatric surgery status
CPT/HCPCS: 90837

== ENCOUNTER 2025-07-12 11:11 | Outpatient (AMB) | payer OTHER, SELFPAY ==
--- NOTE | 2025-07-12 11:05 | A.OFFWM_ITS ---
Intake Intake Visit Reasons: VIDEO PO LSG 04/30/23 Allergies ibuprofen (From MOTRIN) Allergy (Mild, Verified 03/11/25 15:06) HIVES Ibuprofen (800 MG) Allergy (Unknown, Uncoded 06/21/23 23:38) RASH [facility] Medical History Knee pain Back pain Anxiety Depression Morbid obesity Hypothyroidism Asthma Surgical History Hx of tubal ligation Hx of bilateral salpingectomy Family History Mother Hypertension High cholesterol Father Kidney failure Diabetes Hypertension High cholesterol Son Asthma Daughter Asthma Social History (Updated 03/11/25 @ 15:07 by Nicole Houser CMA) Household Members: Family Housing: Apartment Are you a primary child care aide to a significant other at home: No Do you presently have visiting nurse or other home services: No Alcohol intake: current Alcohol intake frequency: holidays/special occasions only Patient Tobacco Use Status: Never used Tobacco service: No Behavioral Health Assessment Weight Management Therapy Therapy Notes Details Subjective: Patient reports feeling stressed due to lack of weight loss progress. She acknowledges not completing her labs and has not been following her meal or exercise plan. She describes feeling weak, and upon further inquiry, reveals she has been skipping meals and is sometimes not properly hydrating. The patient expresses regret about having undergone weight loss surgery, but by the end of the session, she recognized that her current feelings may be related to unhealthy lifestyle habits adopted over the past year. Objective: Patient attended a post-operative behavioral health appointment via Telehealth, presenting as alert and oriented. During the session, CBT-based interventions were used to explore the connection between her thoughts, emotions, and behaviors, particularly around self-criticism and regret. Psychoeducation was provided on the impact of meal skipping and poor hydration on energy levels and weight management. Practical strategies for habit-building were discussed, emphasizing the importance of routine, self-monitoring, and focusing on discipline rather than motivation. The patient was encouraged to identify small, achievable steps to improve adherence to her meal and hydration plan. Assessment/Response: * Mental status: Patient is alert, oriented, and cooperative. Mood is stressed and somewhat regretful, but affect is appropriate. Thought processes are logical and coherent. No evidence of psychosis or severe mood disturbance. * Risk reported/identified: No current suicidal or homicidal ideation. No acute safety concerns identified. Assessment & Plan Assessment & Plan (1) Anxiety: Code(s): F41.9 - Anxiety disorder, unspecified (2) Unspecified mood [affective] disorder: Code(s): F39 - Unspecified mood [affective] disorder (3) S/P laparoscopic sleeve gastrectomy: Code(s): Z98.84 - Bariatric surgery status Plan Patient was instructed to complete her labs prior to the next appointment and to set up her scale for regular self-monitoring and to use [employer] site. Regular follow-up will continue, with the next appointment scheduled in approximately six weeks due to provider?s upcoming vacation. * Next appointment:?08/25/25 at 1:00 PM, in person. Telehealth Telehealth Telehealth Platform: [facility] Location of provider rendering services: other (Home office. [place], [place]) Location of patient: address on file Patient Identification confirmed using: Name, : Yes Telehealth method: voice only Patient verbally consented to treatment: Yes Patient verbally consented to billing insurance company: Yes Patient informed of any privacy concerns related to visit: Yes Minutes spent on Phone/Video with Pt.: 55 [place] [address] Tele Psytx >53 mins Patient Type Established Diagnoses Anxiety F41.9 Unspecified mood [affective] disorder F39 S/P laparoscopic sleeve gastrectomy Z98.84 Time Spent (min) 55
--- OUTSIDE RECORDS SUMMARY | 2025-07-12 14:38 | XMS_ITS | Clinical Summary ---
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 Name Role Phone Pepper Jett MD Primary Care Provider [phone] Allergies Active Allergy Reactions Criticality Noted Date [...] the past 12 months, has t he [employer], gas, oil or water company threatened to [...] Hepatitis C Screening 2012 Pap Smear 2015 SDOH Screening 05/02/2024 05/02/2023 Tobacco Screening 05/30/2024 05/30/2023 Cervical Cancer Screening 2024 HPV/Cotest 2024 DTaP/Tdap/Td Vaccines (3 - Td or Tdap) 03/15/2025 03/15/2015, 08/21/2007, 07/28/1999, Additional history exists COVID-19 Vaccine (3 - 2024- season) 2025 02/14/2021, 12/28/2020 Influenza Vaccine (#1) 2025 07/03/2015, 2010 Zoster [...] patient's age to complete this topic Insurance [facility] C3 Care Teams Esthetician Permanent Makeup Artist Relationship Specialty Start Date End Date Pepper Jett MD [address] [place] [address] ANSELMO Desir [id number] PCP - General Internal Medicine 05/19/21
== END 2025-07-12 11:51 | disposition home or self-care (01) ==
LOC: HO.HBST 11:11
PROVIDERS: Visit Provider Counselor Mental Health
DX: F41.9 Anxiety disorder, unspecified (principal); F39 Unspecified mood [affective] disorder; Z98.84 Bariatric surgery status
CPT/HCPCS: 90837